=== PATIENT | female | born 1950 | race Caucasian/White ===

== ENCOUNTER 2022-04-14 08:40 | Day surgery (SDC) | payer MEDICARE, BC, SELFPAY ==
[2022-04-14] VITALS (24 sets, daily range): BP systolic 94–139; BP diastolic 47–91; PULSE 81–113; RESP 12–18; TEMP 36–36.8; O2SAT 88–100; BMI 30.8
[2022-04-14] MEDS: SODIUM CHLORIDE 0.9 % (FLUSH) 10 ML SYRINGE IVF (09:40)
[2022-04-14] MEDS: LACTATED RINGERS 1000 ML 1,000 ML 100 ML IV ×2 (09:40→13:25)
[2022-04-14] MEDS: ACETAMINOPHEN 500 MG TABLET 1000 MG PO ×2 (09:45→19:43)
--- NOTE | 2022-04-14 10:02 | CRLHL7_ITS ---
For Patients: As a result of the Cures Act, medical imaging exams and procedure reports are released immediately into your electronic medical record. You may view this report before your referring provider. If you have questions, please contact your health care provider. Indication: Hip replacement surgery Technique: AP hip fluoroscopic images. Fluoroscopy time 59.4 seconds. Findings/Impression: Hardware from a right total hip arthroplasty is in satisfactory position. Dictated by Jacob Pagan MD @ 04/15/2022 8:21:30 AM (Electronically Signed)
[2022-04-14] MEDS: MIDAZOLAM HCL 1 MG/ML inj IVP (10:47)
[2022-04-14] MEDS: fentaNYL 100 MCG/2 ML inj IVP (10:47)
--- NOTE | 2022-04-14 10:55 | SUR.PREOP ---
TIME?OUT:?1045 PT/RN/MDA?VERIFICATION?OF?SURGICAL?SITE,?PROCEDURE,?AND?CONSENT OBTAINED?PRIOR?TO?INVASIVE?PROCEDURE.
--- NOTE | 2022-04-14 11:40 | W.PM.NB ---
Nerve Block Nerve Block Date Seen: 04/14/22 Type of block requested by surgeon for post-operative analgesia: MIREYA/LFCN Side: right Time out performed: Yes Verification of patient name: Yes Verification of date of : Yes Site marking: site marked Name of person performing procedure: Geronimo Continuous monitoring Was continuous monitoring of O2 sat, B/P, monitoring and evaluation advisor, recorded every 15 minutes?: Yes Procedure Checklist: sterile prep, needles and gloves Ultrasound guided. Images saved: Yes Medications given in 5ml increments after negative aspiration: Ropivicaine %: 0.5 mL: 30 Needle gauge: 20 Decadron (mg): 10 Precedex (mcg): 25 Patient tolerated procedure well: Yes Additional comments: Needle noted below psoas tendon needle noted adjacent to LFCN Block Charges Block Charge (with Pro Fee): Other Periph Nerve Block Use of Ultrasound Machine for Block: Yes- US Guidance/pain block
--- NOTE | 2022-04-14 12:46 | CRLHL7_ITS ---
For Patients: As a result of the Cures Act, medical imaging exams and procedure reports are released immediately into your electronic medical record. You may view this report before your referring provider. If you have questions, please contact your health care provider. Indication: POST OP BUSTER Technique: AP pelvis and lateral view right hip. Findings/Impression: Hardware from a right total hip arthroplasty is in satisfactory position. Bone alignment is normal. No sign of acute fracture. Postop changes are within normal limits. Dictated by Jacob Pagan MD @ 04/15/2022 8:22:35 AM (Electronically Signed)
--- NOTE | 2022-04-14 12:48 | PM.ORPRC ---
Procedure Note Date of procedure: 04/14/22 Procedure: SURGEON: Travis Nesbitt MD WAYBILL CLERK: Bisi Falcon PA-C, ZEHRA Sánchez PREOPERATIVE DIAGNOSIS: Right hip osteoarthritis POSTOPERATIVE DIAGNOSIS: Right hip osteoarthritis NAME OF OPERATION: Right total hip arthroplasty IMPLANTS: 1. [employer] [place] # 50 sector ingrowth cup 2. 32 x 50 neutral polyethylene 3. Actis #4 standard collared ingrowth stem 4. 32 +1 ceramic femoral head ANESTHESIA: General ESTIMATED BLOOD LOSS: 100 cc COMPLICATIONS: None SPECIMENS: None DRAINS: None PREOPERATIVE ANTIBIOTICS: Ancef 2 grams INDICATIONS: The patient is a 71-year-old with a longstanding history of severe, unrelenting right hip pain secondary to end-stage right hip osteoarthritis. Despite appropriate nonoperative management, including activity modification, use of an assist device, anti-inflammatories, [id number] pain medication, physical therapy and injections, they continue to have pain and disability. Operative intervention was offered. The risks, benefits and expected outcomes were discussed in detail. These included but were not limited to: Infection, bleeding, injury to blood vessel or nerve, venous thromboembolism. All questions were answered to their satisfaction. Use of an recruitment and outreach assistant was necessary throughout the case for patient positioning and safety, soft tissue retraction and closure. PROCEDURE: The patient was placed supine on the [place] table. General anesthesia was administered. The recruitment and outreach assistant made sure the patient was properly positioned. The right hip was prepped and draped in the usual sterile fashion. The image intensifier was brought in for a perfect AP pelvis and a perfect double tear drop AP view of each hip which were used for intraoperative templating with our fluoroscopic guide. An oblique incision was made 3 cm distal and 3 cm lateral to the anterior superior iliac spine. The recruitment and outreach assistant retracted the soft tissues to protect them. Subcutaneous dissection was taken with electrocautery to the superficial fascia. The fascia was divided in line with the incision. Blunt dissection was carried medially to the tensor fascia madeline and sartorius interval. Deep dissection was carried with electrocautery. The circumflex vessels were cauterized and divided. The capsule was exposed and then divided in a T-fashion, tagged with #1 Ethibond sutures. Retractors were placed in the joint, held by the recruitment and outreach assistant. The corkscrew was placed in the femoral head. The neck cut was made in the subcapital region. We made a second neck cut more distal. The napkin ring of bone was removed. The femoral head was removed intact. Acetabular retractors were placed, held by the recruitment and outreach assistant. The labrum was sharply debrided. The capsule was released. The 43 mm reamer was used to the true medial wall. We then enlarged in 2 mm increments using the image intensifier for our reamer placement. We impacted the cup which had excellent purchase. We placed the hole eliminator and the polyethylene. Attention was then turned to the proximal femur. The limb was placed in 140 degrees of external rotation, maximum extension and adduction. A significant amount of time was spent releasing the capsule to allow us to deliver the femur into the wound and complete the femoral side safely. Retractors were held by the recruitment and outreach assistant throughout the femoral preparation. The box office clerk and canal finder were used. Broaches were used to a stable size. The calcar reamer was used. Trial components were placed. The hip was reduced and was found to be stable with appropriate soft tissue tension. Length and offset had been nicely restored using the image intensifier and our fluoroscopic guide. Trial components were removed. The stem was impacted. We placed the femoral head. Again, the hip was reduced and was found to be stable with appropriate soft tissue tension. Length and offset had been nicely restored. The recruitment and outreach assistant did a three minute dilute Betadine solution soak. The recruitment and outreach assistant irrigated the wound with 3 liters of normal saline via pulse lavage. The recruitment and outreach assistant repaired the anterior capsule with a #1 Vicryl and our previously placed Ethibond sutures. The recruitment and outreach assistant closed the fascia over the tensor fascia madeline with a #1 PDO Stratafix, subcutaneous tissues with 2-0 Vicryl, skin with a running 3-0 Stratafix and glue. A dry dressing was applied by the recruitment and outreach assistant. Sponge and needle counts were correct x 2. The patient tolerated the procedure well; there were no apparent complications. They were awakened and extubated in the operating room, sent to the Post-Anesthesia Care Unit in satisfactory condition. PLAN: 1. The patient will be mobilized with physical therapy, weight-bearing as tolerates 2. Xarelto x 5 days then aspirin x 30 days will be used for DVT prophylaxis 3. The patient will be discharged once medically appropriate
--- NOTE | 2022-04-14 13:33 | W.ANESCHARGE ---
Anesthesia Charges Start Date/Time Anesthesia Start Date: 04/14/22 Anesthesia Start Time: 11:12 Stop Date/Time Anesthesia Stop Date: 04/14/22 Anesthesia Stop Time: 13:31 Summary Emergency: No
[2022-04-14] MEDS: fentaNYL 100 MCG/2 ML inj 50 MCG IVP ×2 (13:42→13:58)
--- NOTE | 2022-04-14 13:50 | W.ANESCHARGE ---
Anesthesia Charges Start Date/Time Anesthesia Start Date: 04/14/22 Anesthesia Start Time: 11:12 Stop Date/Time Anesthesia Stop Date: 04/14/22 Anesthesia Stop Time: 13:31 Summary Emergency: No Extremes of Age: Over 70-CPT [id number]
[2022-04-14] MEDS: HYDROmorphone 0.5 mg/0.5 ml inj IVP (14:41)
--- NOTE | 2022-04-14 17:24 | P.IMCN_ITS ---
Date of Consult Patient: Julio C Patient Consult date: 04/14/22 Requesting Physician: Orthopedics Primary Care Provider: Hien Nieves DO Consult Narrative Reason for consult: Assist with postoperative management of medical problems Narrative: Sheri Brownlee is a 71 year old woman with right coxarthrosis that has not been amenable to nonsurgical efforts, presents today for elective right total hip arthroplasty. This is undertaken successfully. No obvious complications. Was previously scheduled to have this procedure 1 month ago. Unfortunately she developed mild symptoms of COVID 19 and tested positive for this and thus the surgery was postponed until now. Review of Systems Status of ROS: Reports: 10 or more systems reviewed and unremarkable except as noted in History and below Narrative: Denies chest heaviness, pressure, tightness, or pain. Denies dyspnea at rest, paroxysmal nocturnal dyspnea, orthopnea, or cough. Denies syncope or near-syncope. Denies palpitations or fluttering. Denies nausea or vomiting. Bowel and bladder habits are satisfactory. No focal motor neurologic deficits. Aside from the COVID-19 1 month ago she has had no other acute illnesses. Denies dysuria, urgency, frequency, hematuria. Denies diarrhea or constipation. No blood loss. No trauma or injury. No recent travel. [facility] Medical History (Updated 04/14/22 @ 17:32 by Reyes Gaines MD) Cervical vertebral fusion Chronic pain syndrome COVID-19 determined by clinical diagnostic criteria Diverticulosis Gastroesophageal reflux disease Hyperlipidemia Hypertension Lumbar stenosis with neurogenic claudication Major depression, recurrent, chronic Osteoarthritis Retinal detachment, right Rheumatoid arthritis Spondylolisthesis of lumbar region Unspecified sleep apnea Surgical History (Updated 04/14/22 @ 17:32 by Reyes Gaines MD) History of abdominal hysterectomy History of back surgery History of lumbar surgery (10/20/21) History of right knee joint replacement S/P cervical spinal fusion Status post right hip replacement Family History Brother Stroke Father Alzheimers disease High blood pressure High cholesterol Heart disease Sister FH: coronary artery bypass surgery Mother Heart disease High cholesterol High blood pressure Macular degeneration Stroke Social History Highest level of school completed/degree received: high school graduate Smoking Status: Never smoker Do you use any of these nicotine containing products: None How often do you have a drink containing alcohol: never AUDIT-C Alcohol total score: 0 Non-prescribed substance use: denies use Caffeine: Yes (Diet pop, 16 oz/day) service: No Meds Home Medications and Allergies Home Medications Medication Instructions Recorded Confirmed Type amitriptyline 10 mg tablet 30 mg PO HS 01/10/22 04/14/22 History ascorbic acid (vitamin C) 250 mg 1 g PO Q6H 01/10/22 04/14/22 History tablet cyclobenzaprine 10 mg tablet 10 mg PO TID 01/10/22 04/14/22 History duloxetine 60 mg capsule,delayed 60 mg PO DAILY 01/10/22 04/14/22 History release estradiol 1 mg tablet 2 mg PO DAILY 01/10/22 04/14/22 History fluoxetine 10 mg capsule 10 mg PO DAILY 01/10/22 04/14/22 History folic acid 1 mg tablet 1 mg PO DAILY 01/10/22 04/14/22 History furosemide 40 mg tablet 40 mg PO DAILY 01/10/22 04/14/22 History gabapentin 300 mg capsule 300 mg PO 01/10/22 01/10/22 History lisinopril 20 mg tablet 20 mg PO DAILY 01/10/22 04/14/22 History methotrexate sodium 2.5 mg tablet 12.5 mg PO .Every 7 Days 01/10/22 04/14/22 History simvastatin 80 mg tablet 40 mg PO .Bedtime 01/10/22 04/14/22 History triamterene 37.5 1 tab PO DAILY 01/10/22 04/14/22 History mg-hydrochlorothiazide 25 mg tablet vit A 300 mcg-C 200 mg-E 27 1 tab PO DAILY 01/10/22 04/14/22 History mg-lutein 2 mg and minerals tablet (Ocuvite with Lutein) zolpidem 5 mg tablet 5 mg PO .Bedtime 01/10/22 04/14/22 History cholecalciferol (vitamin D3) 125 125 mcg PO DAILY 04/13/22 04/14/22 History mcg (5,000 unit) capsule ferrous sulfate 27 mg iron tablet 27 mg PO DAILY 04/13/22 04/14/22 History fexofenadine 180 mg tablet 180 mg PO DAILY 04/13/22 04/14/22 History methocarbamol 750 mg tablet 750 mg PO TID 04/13/22 04/14/22 History oxycodone 5 mg tablet 5 mg PO Q4H PRN 04/13/22 04/14/22 History pantoprazole 40 mg tablet,delayed 40 mg PO DAILY 04/13/22 04/14/22 History release potassium chloride 10 mEq 10 meq PO BID 04/13/22 04/14/22 History capsule,extended release pregabalin 50 mg capsule (Lyrica) 50 mg PO TID 04/13/22 04/14/22 History sennosides 8.6 mg tablet (Senokot) 8.6 mg PO BID 04/13/22 04/14/22 History prednisone 5 mg tablet 2.5 mg PO DAILY 04/14/22 04/14/22 History Allergies Allergy/AdvReac Type Severity Reaction Status Date / Time sulfasalazine Allergy Unknown Rash Verified 04/14/22 09:04 Penicillins Allergy THROAT Verified 04/14/22 09:04 SWELLING/CLOSING infliximab AdvReac Severe Throat Verified 04/14/22 09:04 swelling with a high dose oxycodone AdvReac Intermediate Itching Verified 04/14/22 09:04 cephalexin AdvReac Mild Itching Verified 04/14/22 09:04 sodium phenolate Allergy Unknown Uncoded 01/10/22 09:55 Exam Narrative: Exam Narrative: No acute distress. Appears comfortable. Alert, oriented to self, place, time, situation. Friendly, cooperative, articulate. Mood and affect are congruent. Vision and hearing are grossly normal. Few missing teeth otherwise dentition in fair repair. Supple neck. Midline trachea normal thyroid. No JVD, hepatojugular reflux, or carotid bruits. No lymphadenopathy. Lungs are clear to auscultation. No wheezing, rhonchi, or rales. No CVA tenderness. Heart tones with regular rhythm, normal S1-S2. Grade 2/6 systolic murmur right upper sternal border. PMI is not laterally displaced. Abdomen with active bowel sounds, soft, nontender. Extremities without edema. No focal motor neurologic deficits. Const: Vital Signs, click to edit/add: Vital Signs - 24 hr 04/14/22 09:10 04/14/22 10:47 04/14/22 10:50 Temperature 97.5 F L Pulse Rate 98 84 84 Pulse Rate [Left P ulse Oximeter] Respiratory Rate 16 16 16 Blood Pressure 124/69 107/78 109/59 L Blood Pressure [Le ft Arm] Pulse Oximetry 96 100 100 Oxygen Delivery Me thod Room Air Nasal Cannula Nasal Cannula Oxygen Flow Rate 2 2 04/14/22 10:55 04/14/22 11:00 04/14/22 13:27 Temperature 98.0 F Pulse Rate 82 81 89 Pulse Rate [Left P ulse Oximeter] Respiratory Rate 16 16 14 Blood Pressure 116/58 L 100/51 L 94/67 Blood Pressure [Le ft Arm] Pulse Oximetry 100 100 88 Oxygen Delivery Me thod Nasal Cannula Nasal Cannula Room Air Oxygen Flow Rate 2 2 04/14/22 13:55 04/14/22 14:06 04/14/22 14:10 Temperature Pulse Rate 93 91 92 Pulse Rate [Left P ulse Oximeter] Respiratory Rate 16 12 16 Blood Pressure 120/56 L 129/68 118/62 Blood Pressure [Le ft Arm] Pulse Oximetry 100 91 94 Oxygen Delivery Me thod Nasal Cannula Nasal Cannula Nasal Cannula Oxygen Flow Rate 1 1 1 04/14/22 13:30 04/14/22 13:35 04/14/22 13:40 Temperature Pulse Rate 87 84 84 Pulse Rate [Left P ulse Oximeter] Respiratory Rate 14 13 13 Blood Pressure 112/71 112/64 112/64 Blood Pressure [Le ft Arm] Pulse Oximetry 91 100 100 Oxygen Delivery Me thod Nasal Cannula Nasal Cannula Nasal Cannula Oxygen Flow Rate 3 3 3 04/14/22 13:45 04/14/22 13:50 04/14/22 14:00 Temperature Pulse Rate 89 90 96 Pulse Rate [Left P ulse Oximeter] Respiratory Rate 16 18 16 Blood Pressure 139/84 138/75 120/63 Blood Pressure [Le ft Arm] Pulse Oximetry 100 100 94 Oxygen Delivery Me thod Nasal Cannula Nasal Cannula Nasal Cannula Oxygen Flow Rate 3 1 1 04/14/22 14:15 04/14/22 14:20 04/14/22 14:45 Temperature 97.2 F L 97.0 F L 97.0 F L Pulse Rate 94 96 Pulse Rate [Left P ulse Oximeter] 94 Respiratory Rate 16 18 18 Blood Pressure 116/73 Blood Pressure [Le ft Arm] 114/68 111/91 H Pulse Oximetry 94 96 Oxygen Delivery Me thod Room Air Room Air Room Air Oxygen Flow Rate 04/14/22 15:00 Temperature 97.0 F L Pulse Rate Pulse Rate [Left P ulse Oximeter] 90 Respiratory Rate 18 Blood Pressure Blood Pressure [Le ft Arm] 125/60 Pulse Oximetry 97 Oxygen Delivery Me thod Room Air Oxygen Flow Rate 1 Documenting provider has reviewed patient's vital signs: yes Assessment and Plan Assessment and plan (1) Osteoarthritis of right hip: Status: Acute (2) Status post right hip replacement: Problem comment: 04/14/2022 Status: Acute (3) Hypertension: Status: Acute (4) Rheumatoid arthritis: Problem comment: Negative rheumatoid factor Status: Acute Plan 1. Reviewed impression with patient and . Answered their questions. 2. Continue with daily prednisone 2.5 mg. 3. Hold antihypertensive medications. 4. Hold methotrexate. 5. Agree with perioperative antibiotic prophylaxis. 6. Agree with postoperative venous thromboembolism prophylaxis. 7. Will be available to support the patient while she is in hospital with Orthopedic surgery as primary. 8. Patient agreeable with above stated plans and recommendations.
[2022-04-14] MEDS: POTASSIUM CHLORIDE 10 MEQ CAPSULE ER PO (19:42)
[2022-04-14] MEDS: CEFAZOLIN 2 GM in 0.9 % SODIUM CHLORIDE Mini-bag 100 ML IVPB (19:44)
--- NOTE | 2022-04-14 20:16 | PC.NURSE ---
Pt arrives to floor chatting, asking for phone from , and complaining of numb lower leg and pain in right surgical hip= 3 of 10. Pt's expectations for pain post-op is 0 of 10. Dilaudid per MAR given and education about pain scale given. Pt tolerated regular diet, no N/V. 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 Informed pt of plan for evening and use of commode or bathroom. Pt understands and will communicate when needing to use BR. Pt will return home with at time of DC.
[2022-04-14] MEDS: ZOLPIDEM 5 MG TABLET PO (21:04)
[2022-04-14] MEDS: CYCLOBENZAPRINE HCL 10 MG TABLET PO (21:04)
[2022-04-14] MEDS: CELECOXIB 200 MG CAPSULE PO (21:05)
[2022-04-14] MEDS: SENNOSIDES 1 TAB TABLET 2 TAB PO (21:05)
[2022-04-14] MEDS: SIMVASTATIN 40 MG TABLET PO (21:05)
[2022-04-14] MEDS: PREGABALIN 25 MG CAPSULE 50 MG PO (21:06)
[2022-04-14] MEDS: AMITRIPTYLINE HCL 10 MG TABLET 30 MG PO (21:15)
[2022-04-15] MEDS: CEFAZOLIN 2 GM in 0.9 % SODIUM CHLORIDE Mini-bag 100 ML IVPB ×2 (02:01→09:50)
[2022-04-15] MEDS: ACETAMINOPHEN 500 MG TABLET 1000 MG PO ×2 (02:01→06:41)
[2022-04-15 03:00] VITALS: BP 135/66; PULSE 103; RESP 18; TEMP 36.3; O2SAT 96
--- NOTE | 2022-04-15 05:55 | PC.NURSE ---
[id number] shift note: Pt. alert and oriented x4, cooperative and pleasant. Pt denies pain/N/V. Pt. up to bathroom and voided for the first. Pt. tolerated activity well. Pt's dressing to right hip C/D/I. Bilateral Teds and plexi pulses on. Pt. IV in left arm patent and intact. Saline locked after adequate intake and output. Active ice to site. Pt. VSS. Plan for Pt.: will return home w/ at time of DC.
[2022-04-15] MEDS: OMEPRAZOLE 20 MG CAPSULE DR 40 MG PO (06:41)
[2022-04-15 07:00] VITALS: BP 145/69; PULSE 98; RESP 18; TEMP 36.6; O2SAT 95
[2022-04-15 07:20] LABS: Basophils Percent Auto 0.1 % (0.0-3.0); Hematocrit 31.2 % (33.0-51.0); Hemoglobin* 9.8 gm/dL (12.0-16.0); Immature Granulocytes Abs Auto 0.04 K/uL (0.00-0.30); Lymphocytes Percent Auto 12.4 % (20-44); Mean Corpuscular HGB Conc 31 gm/dL (32-36); Mean Corpuscular Hemoglobin 30 pg (26-34); Mean Corpuscular Volume 96 fL (80-100); Monocytes Percent Auto 9.1 % (0.0-11.0); Neutrophils Percent Auto 78.1 % (42.0-72.0); Platelet Count* 276 K/uL (140-440); RDW Coefficient of Variation % 12.8 % (11.5-15.5); Red Blood Count 3.26 m/uL (4.00-5.20); White Blood Count* 14.17 K/uL (4.50-11.00)
[2022-04-15 07:29] LABS: Slide Review Reflex No
[2022-04-15 07:32] LABS: Potassium* 4.5 mmol/L (3.6-5.1); Sodium* 132 mmol/L (135-149)
[2022-04-15 07:35] LABS: Blood Urea Nitrogen* 21 mg/dL (7-30); Creatinine* 1.1 mg/dL (0.5-1.5); Est. Creatinine Clearance* 40.51; Estimated Glomerular Filt Rate 54 ml/min
[2022-04-15] MEDS: POTASSIUM CHLORIDE 10 MEQ CAPSULE ER PO (08:50)
[2022-04-15] MEDS: DULOXETINE 30 MG CAPSULE DR 60 MG PO (08:50)
[2022-04-15] MEDS: predniSONE 5 MG TABLET 2.5 MG PO (08:51)
[2022-04-15] MEDS: FOLIC ACID 1 MG TABLET PO (08:52)
[2022-04-15] MEDS: FEXOFENADINE 180 MG TABLET PO (08:52)
[2022-04-15] MEDS: CYCLOBENZAPRINE HCL 10 MG TABLET PO (08:52)
[2022-04-15] MEDS: CELECOXIB 200 MG CAPSULE PO (08:52)
[2022-04-15] MEDS: RIVAROXABAN 10 MG TABLET PO (08:53)
[2022-04-15] MEDS: estradioL 1 MG TABLET 2 MG PO (08:53)
--- NOTE | 2022-04-15 08:53 | PM.ORPN ---
Subjective Subjective Time Seen by Provider: 07:20 Date Seen: 04/15/22 Principal diagnosis: Status post right hip replacement Interval history: Sheri is comfortable this morning. She has been able to get out of bed on her own and ambulating to the bathroom with relative ease she states. Ortho Exam Narrative Exam Narrative: Alert and oriented x3. Patient is in no acute distress. Converses without labored breathing. Hearing is grossly intact. Ambulates with a walker. Examination of the right hip shows mild amount of ecchymosis. No significant soft tissue edema. No tenderness palpation about the thigh. Dressing is intact. CMS is intact right lower extremity. Bilateral calves are soft and nontender. Const Vital Signs, click to edit/add: Vital Signs - 24 hr 04/14/22 09:10 04/14/22 10:47 04/14/22 10:50 Temperature 97.5 F L Pulse Rate 98 84 84 Pulse Rate [Left Pulse Oximeter] Respiratory Rate 16 16 16 Blood Pressure 124/69 107/78 109/59 L Blood Pressure [Left Arm] Pulse Oximetry 96 100 100 Oxygen Delivery Method Room Air Nasal Cannula Nasal Cannula Oxygen Flow Rate 2 2 04/14/22 10:55 04/14/22 11:00 04/14/22 13:27 Temperature 98.0 F Pulse Rate 82 81 89 Pulse Rate [Left Pulse Oximeter] Respiratory Rate 16 16 14 Blood Pressure 116/58 L 100/51 L 94/67 Blood Pressure [Left Arm] Pulse Oximetry 100 100 88 Oxygen Delivery Method Nasal Cannula Nasal Cannula Room Air Oxygen Flow Rate 2 2 04/14/22 13:55 04/14/22 14:06 04/14/22 14:10 Temperature Pulse Rate 93 91 92 Pulse Rate [Left Pulse Oximeter] Respiratory Rate 16 12 16 Blood Pressure 120/56 L 129/68 118/62 Blood Pressure [Left Arm] Pulse Oximetry 100 91 94 Oxygen Delivery Method Nasal Cannula Nasal Cannula Nasal Cannula Oxygen Flow Rate 1 1 1 04/14/22 13:30 04/14/22 13:35 04/14/22 13:40 Temperature Pulse Rate 87 84 84 Pulse Rate [Left Pulse Oximeter] Respiratory Rate 14 13 13 Blood Pressure 112/71 112/64 112/64 Blood Pressure [Left Arm] Pulse Oximetry 91 100 100 Oxygen Delivery Method Nasal Cannula Nasal Cannula Nasal Cannula Oxygen Flow Rate 3 3 3 04/14/22 13:45 04/14/22 13:50 04/14/22 14:00 Temperature Pulse Rate 89 90 96 Pulse Rate [Left Pulse Oximeter] Respiratory Rate 16 18 16 Blood Pressure 139/84 138/75 120/63 Blood Pressure [Left Arm] Pulse Oximetry 100 100 94 Oxygen Delivery Method Nasal Cannula Nasal Cannula Nasal Cannula Oxygen Flow Rate 3 1 1 04/14/22 14:15 04/14/22 14:20 04/14/22 14:45 Temperature 97.2 F L 97.0 F L 97.0 F L Pulse Rate 94 96 Pulse Rate [Left Pulse Oximeter] 94 Respiratory Rate 16 18 18 Blood Pressure 116/73 Blood Pressure [Left Arm] 114/68 111/91 H Pulse Oximetry 94 96 Oxygen Delivery Method Room Air Room Air Room Air Oxygen Flow Rate 04/14/22 15:00 04/14/22 15:00 04/14/22 15:15 Temperature 97.0 F L Pulse Rate Pulse Rate [Left Pulse Oximeter] 90 98 100 Respiratory Rate 18 18 18 Blood Pressure Blood Pressure [Left Arm] 125/60 120/48 L 97/47 L Pulse Oximetry 97 96 97 Oxygen Delivery Method Room Air Room Air Room Air Oxygen Flow Rate 1 04/14/22 16:30 04/14/22 17:00 04/14/22 17:30 Temperature 96.8 F L 97.0 F L 97.8 F Pulse Rate Pulse Rate [Left Pulse Oximeter] 98 110 H 105 H Respiratory Rate 18 18 18 Blood Pressure Blood Pressure [Left Arm] 104/73 108/58 L 125/51 L Pulse Oximetry 96 97 98 Oxygen Delivery Method Room Air Room Air Room Air Oxygen Flow Rate 04/14/22 22:18 04/14/22 22:18 04/15/22 03:00 Temperature 98.2 F 97.3 F L Pulse Rate Pulse Rate [Left Pulse Oximeter] 109 H 113 H 103 H Respiratory Rate 18 18 Blood Pressure Blood Pressure [Left Arm] 121/61 135/66 Pulse Oximetry 98 96 Oxygen Delivery Method Room Air Room Air Oxygen Flow Rate Assessment and Plan Assessment and plan (1) Osteoarthritis of right hip: Status: Acute (2) Status post right hip replacement: Problem details: 04/14/2022 Status: Acute Assessment and Plan: Plan for discharge is today to home if they meet discharge criteria. She is anticipated to do very well postop. DVT prophylaxis includes Xarelto 10 mg daily for total of 5 days, then aspirin 81 mg twice daily for 30 days, Shahbaz stockings x1 month may remove for 1 hr per day, frequent ambulation Remove dressing 1 week. Observe wound and phone Orthopedics with any questions or concerns Use Ice on operative hip unrestricted. Return to clinic in 1 week with PA for a wound check Return to clinic in [address] Nesbitt Minimize narcotic use. She is okay with taking oxycodone, even though she has an allergy listed with mild itching she states. Wean off and discontinue soon as possible. Activities as tolerated. No strenuous activity. Attend outpt PT, she is concerned about her gait. She will work on this with physical therapy. (3) Hypertension: Status: Acute (4) Rheumatoid arthritis: Problem details: Negative rheumatoid factor Status: Acute
[2022-04-15] MEDS: FLUOXETINE HCL 10 MG CAPSULE PO (08:54)
[2022-04-15] MEDS: PREGABALIN 25 MG CAPSULE 50 MG PO (09:27)
[2022-04-15] MEDS: OXYCODONE 5 MG TABLET PO (09:33)
--- NOTE | 2022-04-15 12:01 | PC.NURSE ---
Discharge: Patient pleasant, cooperative, and with great humor. Patient vitally stable, lungs clear, BS WNL, IV removed, catheter intact. Patient walks independent in room with walker. Patient denies pain but was given 5 mg of oxy once for therapy. Patient tolerating regular diet and urinating. Right hip dressing C/D/I. Patient signed belongings sheet and discharge form. Patient had no further questions regarding discharge information. Patient left the floor at 1155 by wheelchair with belongings.
== END 2022-04-15 11:55 | disposition home or self-care (01) ==
LOC: OR 08:41 → MEDSURG 08:44
PROVIDERS: PCP Family Medicine; Visit Provider Orthopaedic Surgery
PROC: (CPT 27130; principal; 2022-04-14 10:00)
DX: M16.11 Unilateral primary osteoarthritis, right hip (principal); I10 Essential (primary) hypertension; K21.9 Gastro-esophageal reflux disease without esophagitis; G89.4 Chronic pain syndrome; E78.5 Hyperlipidemia, unspecified; M48.062 Spinal stenosis, lumbar region with neurogenic claudication; F33.9 Major depressive disorder, recurrent, unspecified; M06.00 Rheumatoid arthritis without rheumatoid factor, unspecified site; M43.16 Spondylolisthesis, lumbar region
CPT/HCPCS: 27130; 01214; 36415; 64450; 73501; 76942; 82565; 84132; 84295; 84520; 85025; 97110; 97116; 97161; 97165; 97535; 99100; A9270; C1776; J0330; J0690; J1100; J1170; J2250; J2405; J2704; J2710; J2795; J3010; J7120; J7512

== ENCOUNTER 2022-10-14 11:29 | Emergency (ER) | payer MEDICARE, BC, SELFPAY ==
[2022-10-14 11:33] VITALS: BP 164/77; PULSE 84; RESP 18; TEMP 36.6; O2SAT 96; BMI 32.6
--- NOTE | 2022-10-14 11:50 | CRLHL7_ITS ---
For Patients: As a result of the Century Cures Act, medical imaging exams and procedure reports are released immediately into your electronic medical record. You may view this report before your referring provider. If you have questions, please contact your health care provider. INDICATION: Cough. TECHNIQUE: Chest 2 views. COMPARISON: None. FINDINGS: Cardiovascular and mediastinum: Heart size and vasculature are normal in caliber and appearance. Lungs and pleural spaces: Lungs are clear. No sign of infiltrate or mass. No sign of pleural effusion. No pneumothorax. Bones and soft tissues: No significant findings. IMPRESSION: No acute or significant findings. Dictated by Jose Miguel Neville MD @ 10/14/2022 12:42:58 PM (Electronically Signed)
--- NOTE | 2022-10-14 11:50 | ED.GENADULT ---
HPI - General Adult General Chief complaint: Cough Stated complaint: Cough, chest pain Time Seen by Provider: 10/14/22 11:38 History of Present Illness HPI narrative: This 71-year-old female comes in reporting persistent cough over the past week. She states that the cough is especially troubling at night where she has difficulty sleeping. She states that she has been taking [id number] cough medicines without much relief. She now has pain in her chest and back when coughing. She does not report any fevers. She did test herself at home for COVID a couple times and both results were negative. She arrives here with normal vital signs per Related Data Home Medications Medication Instructions Recorded Confirmed amitriptyline 10 mg tablet 30 mg PO HS 01/10/22 04/20/22 ascorbic acid (vitamin C) 250 mg 1 g PO Q6H 01/10/22 04/20/22 tablet cyclobenzaprine 10 mg tablet 10 mg PO TID 01/10/22 04/20/22 duloxetine 60 mg capsule,delayed 60 mg PO DAILY 01/10/22 04/20/22 release estradiol 1 mg tablet 2 mg PO DAILY 01/10/22 04/20/22 fluoxetine 10 mg capsule 10 mg PO DAILY 01/10/22 04/20/22 folic acid 1 mg tablet 1 mg PO DAILY 01/10/22 04/20/22 furosemide 40 mg tablet 40 mg PO DAILY 01/10/22 04/20/22 lisinopril 20 mg tablet 20 mg PO DAILY 01/10/22 04/20/22 methotrexate sodium 2.5 mg tablet 12.5 mg PO .Every 7 Days 01/10/22 04/20/22 simvastatin 80 mg tablet 40 mg PO .Bedtime 01/10/22 04/20/22 triamterene 37.5 1 tab PO DAILY 01/10/22 04/20/22 mg-hydrochlorothiazide 25 mg tablet vit A 300 mcg-C 200 mg-E 27 1 tab PO DAILY 01/10/22 04/20/22 mg-lutein 2 mg and minerals tablet (Ocuvite with Lutein) zolpidem 5 mg tablet 5 mg PO .Bedtime 01/10/22 04/20/22 cholecalciferol (vitamin D3) 125 125 mcg PO DAILY 04/13/22 04/20/22 mcg (5,000 unit) capsule ferrous sulfate 27 mg iron tablet 27 mg PO DAILY 04/13/22 04/20/22 fexofenadine 180 mg tablet 180 mg PO DAILY 04/13/22 04/20/22 methocarbamol 750 mg tablet 750 mg PO TID 04/13/22 04/20/22 pantoprazole 40 mg tablet,delayed 40 mg PO DAILY 04/13/22 04/20/22 release potassium chloride 10 mEq 10 meq PO BID 04/13/22 04/20/22 capsule,extended release pregabalin 50 mg capsule (Lyrica) 50 mg PO TID 04/13/22 04/20/22 sennosides 8.6 mg tablet (Senokot) 8.6 mg PO BID 04/13/22 04/20/22 prednisone 5 mg tablet 2.5 mg PO DAILY 04/14/22 04/20/22 Previous Rx's Medication Instructions Recorded acetaminophen 500 mg tablet 500 - 1,000 mg PO Q6H PRN pain 04/15/22 #100 tabs acetaminophen 300 mg-codeine 30 mg 1 tab PO Q6H PRN pain #20 tabs 10/14/22 tablet Allergies Allergy/AdvReac Type Severity Reaction Status Date / Time sulfasalazine Allergy Unknown Rash Verified 05/30/22 10:51 Penicillins Allergy THROAT Verified 05/30/22 10:51 SWELLING/CLOSING infliximab AdvReac Severe Throat Verified 05/30/22 10:51 swelling with a high dose oxycodone AdvReac Intermediate Itching Verified 05/30/22 10:51 cephalexin AdvReac Mild Itching Verified 05/30/22 10:51 sodium phenolate Allergy Unknown Uncoded 05/30/22 10:51 Review of Systems Status of ROS: Reports: 10 or more systems reviewed and unremarkable except as noted in History and below Narrative: Constitutional: No fevers, no weight gain or loss. Eyes: No discharge. No vision changes. HENT: No congestion, no sore throat, no ear pain. Cardiovascular: No chest pain, no palpitations. Respiratory: No shortness of breath, no wheezes. Persistent cough with associated pain in her chest when coughing. Gastrointestinal: No abdominal pain, no vomiting, no diarrhea. Genitourinary: No dysuria, no hematuria. Musculoskeletal: Normal range of motion. Skin: No rashes, no pruritis. Neurological: No dizziness, weakness, sensory change, speech change. Endo/Heme/Allergies: No bruising or bleeding. No polydipsia. Pysch: no suicidality, no anxiety, no insomnia. All other systems reviewed and are negative. PFSH PFSH Medical History Cervical vertebral fusion Chronic pain syndrome COVID-19 determined by clinical diagnostic criteria Diverticulosis Gastroesophageal reflux disease Hyperlipidemia Hypertension Lumbar stenosis with neurogenic claudication Major depression, recurrent, chronic Osteoarthritis Retinal detachment, right Rheumatoid arthritis Spondylolisthesis of lumbar region Unspecified sleep apnea Surgical History History of abdominal hysterectomy History of back surgery History of lumbar surgery (10/20/21) History of right knee joint replacement (04/30/19) S/P cervical spinal fusion Status post right hip replacement (04/14/22) Family History Brother Stroke Father Alzheimers disease High blood pressure High cholesterol Heart disease Sister FH: coronary artery bypass surgery Mother Heart disease High cholesterol High blood pressure Macular degeneration Stroke Social History (Reviewed 04/20/22 @ 11:17 by Aaliyah García ~ [facility], [facility]) Highest level of school completed/degree received: high school graduate Smoking Status: Never smoker Do you use any of these nicotine containing products: None How often do you have a drink containing alcohol: never AUDIT-C Alcohol total score: 0 Non-prescribed substance use: denies use Caffeine: Yes (Diet pop, 16 oz/day) service: No Exam Narrative: Exam Narrative: Constitutional: Well-developed, well-nourished, no acute distress. HEENT: Normocephalic, atraumatic. Neck: Normal range of motion. Nontender. Supple. Heart: Regular. No murmurs. Normal rate. Intact distal pulses. Lungs: Clear to auscultation. No chest discomfort. No wheezes, rhonchi, or rales. Abdomen: Normal bowel sounds. Nontender. No rebound tenderness. Genitalia: Deferred. Back: No midline tenderness. Normal range of motion. Extremities: Normal range of motion. No injury. Skin: Intact. No rash. Warm. No erythema or pallor. Neurologic: No altered sensation. No weakness. Alert and oriented. Psychiatric: No suicidality. No anxiety or depression. No insomnia. Nursing notes and vitals signs are reviewed. Const: Vital Signs, click to edit/add: Vital Signs - 24 hr 10/14/22 11:33 Temperature 97.9 F Pulse Rate [Right Pulse Oximeter] 84 Respiratory Rate 18 Blood Pressure [Ri ght Upper Arm] 164/77 H Pulse Oximetry 96 Oxygen Delivery Me thod Room Air Course Vital Signs Vital signs: Initial Vital Signs Temperature 97.9 F 10/14/22 11:33 Temperature Source Temporal Artery Scan 10/14/22 11:33 Pulse Rate 84 10/14/22 11:33 Respiratory Rate 18 10/14/22 11:33 Blood Pressure 164/77 H 10/14/22 11:33 Blood Pressure Mean 106 10/14/22 11:33 Blood Pressure Position Sitting 10/14/22 11:33 Pulse Oximetry 96 10/14/22 11:33 Oxygen Delivery Method Room Air 10/14/22 11:33 Vital Signs Temperature 97.9 F 10/14/22 11:33 Pulse Rate 84 10/14/22 11:33 Respiratory Rate 18 10/14/22 11:33 Blood Pressure 164/77 H 10/14/22 11:33 Pulse Oximetry 96 10/14/22 11:33 Oxygen Delivery Method Room Air 10/14/22 11:33 Temperature 97.9 F 10/14/22 11:33 Pulse Rate 84 10/14/22 11:33 Respiratory Rate 18 10/14/22 11:33 Blood Pressure 164/77 H 10/14/22 11:33 Pulse Oximetry 96 10/14/22 11:33 Oxygen Delivery Method Room Air 10/14/22 11:33 Medical Decision Making MDM Narrative Medical decision making narrative: This 71-year-old female has had a persistent cough for the past week. She has been taking Vicks [id number]-[id number] without much relief. She arrives with normal vital signs. Her lung sounds are also clear. A chest x-ray is negative for acute cardiopulmonary disease. Most likely this is a viral infection. She did received prescription for Tylenol 3 tablets and encouraged the use [id number] cough medicine including dextromethorphan. Discharge Plan Discharge Clinical Impression: Acute upper respiratory infection Patient Disposition: Home, Self-Care Condition: Unchanged Additional Instructions: Take medication as needed and indicated. Use [id number] cough medicines preferably with dextromethorphan for additional relief. Follow up with MD or return if worsening. Prescriptions: New acetaminophen-codeine 300-30 mg tablet 1 tab PO Q6H PRN (Reason: pain) Qty: 20 0RF No Action Ocuvite with Lutein 300 mcg-200 mg-27 mg-2 mg tablet 1 tab PO DAILY duloxetine 60 mg capsule,delayed release(DR/EC) 60 mg PO DAILY zolpidem 5 mg tablet 5 mg PO .Bedtime folic acid 1 mg tablet 1 mg PO DAILY triamterene-hydrochlorothiazid 37.5-25 mg tablet 1 tab PO DAILY fluoxetine 10 mg capsule 10 mg PO DAILY amitriptyline 10 mg tablet 30 mg PO HS methotrexate sodium 2.5 mg tablet 12.5 mg PO .Every 7 Days Rx Instructions: TAKES ON MONDAYS estradiol 1 mg tablet 2 mg PO DAILY simvastatin 80 mg tablet 40 mg PO .Bedtime lisinopril 20 mg tablet 20 mg PO DAILY ascorbic acid (vitamin C) 250 mg tablet 1 g PO Q6H furosemide 40 mg tablet 40 mg PO DAILY cyclobenzaprine 10 mg tablet 10 mg PO TID cholecalciferol (vitamin D3) 125 mcg (5,000 unit) capsule 125 mcg PO DAILY ferrous sulfate 27 mg iron tablet 27 mg PO DAILY fexofenadine 180 mg tablet 180 mg PO DAILY methocarbamol 750 mg tablet 750 mg PO TID pantoprazole 40 mg tablet,delayed release (DR/EC) 40 mg PO DAILY Patient Comments: TAKE 1 TABLET BY MOUTH ONCE DAILY BEFORE A MEAL potassium chloride 10 mEq capsule, extended release 10 meq PO BID pregabalin [Lyrica] 50 mg capsule 50 mg PO TID sennosides [Senokot] 8.6 mg tablet 8.6 mg PO BID prednisone 5 mg tablet 2.5 mg PO DAILY Patient Comments: TAKE 2 TABLETS BY MOUTH IN THE MORNING acetaminophen 500 mg Tablet 500 - 1,000 mg PO Q6H MDD 4000 PRN (Reason: pain) Qty: 100 0RF Follow Up/Referrals: Hien Nieves DO [Primary Care Provider] - Stand Alone Forms: [facility] Info Instructions
== END 2022-10-14 13:12 | disposition home or self-care (01) ==
PROVIDERS: Emergency Provider Emergency Medicine Emergency Medical Services; PCP Family Medicine
DX: J06.9 Acute upper respiratory infection, unspecified (principal)
CPT/HCPCS: 71046; 99283; 99284

== ENCOUNTER 2023-02-06 17:09 | Outpatient (CLI) | payer MEDICARE, BC, SELFPAY ==
--- OUTSIDE RECORDS SUMMARY | 2023-02-06 17:12 | XMS_ITS | Continuity of Care Document ---
Author Name Unknown Organization [facility] Address [address] [place] [address] Phone Care Team Providers Care Catering Attendant Name Role Phone Marc Coulter MD Unavailable Unavailable Allergies, Adverse Reactions, Alerts Substance Reaction Status Criticality Sulfa (Sulfonamide Antibiotics) Swelling Active No Information Penicillins Anaphylaxis Active No Information Medications Medication Instructions Dosage Effective Dates (start - stop) Status Comments folic acid 1 mg tablet take 1 tablet by oral route every morning 1 MG - Active methotrexate sodium 2.5 mg tablet take 5 Tablet by oral route every week 12.5 MG - Active prednisone 2.5 mg tablet take 2 tablet by oral route every day 5 MG - Active Vitamin D2 1,250 mcg (50,000 unit) capsule take 1 capsule by oral route every week x 4 months - Active Orencia (with maltose) 250 mg intravenous solution infuse ( ) by intravenous route every ( ) weeks over - Active Celebrex 200 mg capsule Take 1 capsule 2 times daily - Active gabapentin 300 mg capsule take 1 capsule by oral route 2 times every day 300 MG - Active estradiol 2 mg tablet take 1 tablet by oral route every day 2 MG - Active Ambien 5 mg tablet take 1 Tablet by oral route every day 5 MG - Active Flexeril 10 mg Tab take 1 tablet (10MG) by oral route three times a day - Active Sandra 180 mg Tab take 1 tablet (180MG) by oral route every day - Active glucosamine-chondroit in 500 mg-400 mg Cap take one tab three times a day - Active multivitamin Cap take 1 capsule by oral route every day - Active vitamin A 10,000 unit Cap take 1 capsule ([id number]) by oral route every day 33049 UNITS - Active vitamin E 400 unit Cap take 1 tablet daily - Active amitriptyline 25 mg Tab take 1 tablet (25MG) by oral route every day at bedtime 25 MG - Active Cymbalta 20 mg Capsule, delayed release take 1 capsule (20MG) by oral route 3 times every day 20 MG - Active potassium chloride ER 10 mEq Tab take 2 tablet (20MEQ) by oral route every day with food 20 MEQ - Active Lasix 40 mg Tab take 1 tablet (40MG) by oral route every day 40 MG - Active triamterene-hydrochlo rothiazide 37.5 mg-25 mg Tab take 1 tablet by oral route every day 1.00 tablet - Active Vicodin 5 mg-500 mg Tab take 1 tablet by oral route every 4 hours as needed for pain - Active Zocor 80 mg Tab take 1 tablet daily - Acti ve Procedures Procedure Date Orencia Abatacept Chemo, Iv Infusion, 1 Hr Orencia Abatacept Chemo, Iv Infusion, 1 Hr Orencia Abatacept Chemo, Iv Infusion, 1 Hr Office/Outpatient Visit, Est Routine Venipuncture Rbc Sed Rate, Automated Assay Of Serum Albumin Assay Of Creatinine Transferase (Ast) (Sgot) Alanine Amino (Alt) (Sgpt) CReactive Protein Complete Cbc WAuto Diff Wbc Orencia Abatacept Chemo, Iv Infusion, 1 Hr Orencia Abatacept Chemo, Iv Infusion, 1 Hr Orencia Abatacept Chemo, Iv Infusion, 1 Hr Orencia Abatacept Chemo, Iv Infusion, 1 Hr Office/Outpatient Visit, Est Routine Venipuncture Assay Of Serum Albumin Assay Of Creatinine Transferase (Ast) (Sgot) Alanine Amino (Alt) (Sgpt) Complete Cbc, Automated Orencia Abatacept Ther/Proph/Diag Iv Inf, Init Office/Outpatient Visit, Est Routine Venipuncture Rbc Sed Rate, Nonautomated Assay Of Serum Albumin Assay Of Creatinine Transferase (Ast) (Sgot) Alanine Amino (Alt) (Sgpt) CReactive Protein Complete Cbc, Automated Orencia Abatacept Ther/Proph/Diag Iv Inf, Init Orencia Abatacept Ther/Proph/Diag Iv Inf, Init Orencia Abatacept Ther/Proph/Diag Iv Inf, Init Orencia Abatacept Ther/Proph/Diag Iv Inf, Init Orencia Abatacept Office/Outpatient Visit, Est Routine Venipuncture Assay Of Serum Albumin Assay Of Creatinine Transferase (Ast) (Sgot) Alanine Amino (Alt) (Sgpt) Orencia Abatacept Ther/Proph/Diag Iv Inf, Init Orencia Abatacept Ther/Proph/Diag Iv Inf, Init Orencia Abatacept Ther/Proph/Diag Iv Inf, Init Office/Outpatient Visit, Est Routine Venipuncture Assay Of Serum Albumin Assay Of Creatinine Transferase (Ast) (Sgot) Alanine Amino (Alt) (Sgpt) Complete Cbc, Automated Orencia Abatacept Ther/Proph/Diag Iv Inf, Init Orencia Abatacept Ther/Proph/Diag Iv Inf, Init Orencia Abatacept Ther/Proph/Diag Iv Inf, Init Orencia Abatacept Chemo, Iv Infusion, 1 Hr Office/Outpatient Visit, Est Routine Venipuncture Specimen Handling Assay Of Serum Albumin Assay Of Creatinine Transferase (Ast) (Sgot) Alanine Amino (Alt) (Sgpt) Vitamin D 25 Hydroxy Complete Cbc, Automated Orencia Abatacept Chemo, Iv Infusion, 1 Hr Orencia Abatacept Chemo, Iv Infusion, 1 Hr Office/Outpatient Visit, Est Routine Venipuncture Assay Of Serum Albumin Assay Of Creatinine Transferase (Ast) (Sgot) Alanine Amino (Alt) (Sgpt) Complete Cbc, Automated Orencia Abatacept Chemo, Iv Infusion, 1 Hr Orencia Abatacept Chemo, Iv Infusion, 1 Hr Orencia Abatacept Chemo, Iv Infusion, 1 Hr Office/Outpatient Visit, Est Remicade Infliximab Chemo, Iv Infusion, 1 Hr Chemo, Iv Infusion, Addl Hr Solumedrol Up To 40mg Tx/Proph/Dg Addl Seq Iv Inf Office/Outpatient Visit, Est Routine Venipuncture Rbc Sed Rate, Nonautomated Assay Of Serum Albumin Assay Of Creatinine Transferase (Ast) (Sgot) Alanine Amino (Alt) (Sgpt) CReactive Protein Complete Cbc WAuto Diff Wbc Remicade Infliximab Chemo, Iv Infusion, 1 Hr Chemo, Iv Infusion, Addl Hr Solumedrol Up To 40mg Tx/Proph/Dg Addl Seq Iv Inf Routine Venipuncture Transferase (Ast) (Sgot) Alanine Amino (Alt) (Sgpt) Remicade Infliximab Chemo, Iv Infusion, 1 Hr Chemo, Iv Infusion, Addl Hr Solumedrol Up To 40mg Tx/Proph/Dg Addl Seq Iv Inf Office/Outpatient Visit, Est Routine Venipuncture Assay Of Serum Albumin Assay Of Creatinine Transferase (Ast) (Sgot) Alanine Amino (Alt) (Sgpt) Complete Cbc, Automated Remicade Infliximab Chemo, Iv Infusion, 1 Hr Chemo, Iv Infusion, Addl Hr Solumedrol Up To 40mg Tx/Proph/Dg Addl Seq Iv Inf Remicade Infliximab Chemo, Iv Infusion, 1 Hr Chemo, Iv Infusion, Addl Hr Solumedrol Up To 40mg Tx/Proph/Dg Addl Seq Iv Inf Office/Outpatient Visit, Est Routine Venipuncture Assay Of Serum Albumin Assay Of Creatinine Transferase (Ast) (Sgot) Alanine Amino (Alt) (Sgpt) Complete Cbc, Automated Remicade Infliximab Chemo, Iv Infusion, 1 Hr Chemo, Iv Infusion, Addl Hr Solumedrol Up To 40mg Tx/Proph/Dg Addl Seq Iv Inf Office/Outpatient Visit, Est Routine Venipuncture Specimen Handling Assay Of Serum Albumin Assay Of Creatinine Transferase (Ast) (Sgot) Alanine Amino (Alt) (Sgpt) CReactive Protein Tb Test, Cell Immun Measure Complete Cbc, Automated Remicade Infliximab Chemo, Iv Infusion, 1 Hr Chemo, Iv Infusion, Addl Hr Solumedrol Up To 40mg Tx/Proph/Dg Addl Seq Iv Inf Remicade Infliximab Chemo, Iv Infusion, 1 Hr Chemo, Iv Infusion, Addl Hr Solumedrol Up To 40mg Tx/Proph/Dg Addl Seq Iv Inf Office/Outpatient Visit, Est Routine Venipuncture Assay Of Serum Albumin Assay Of Creatinine Transferase (Ast) (Sgot) Alanine Amino (Alt) (Sgpt) CReactive Protein Complete Cbc, Automated Remicade Infliximab Chemo, Iv Infusion, 1 Hr Chemo, Iv Infusion, Addl Hr Solumedrol Up To 40mg Tx/Proph/Dg Addl Seq Iv Inf Remicade Infliximab Chemo, Iv Infusion, 1 Hr Chemo, Iv Infusion, Addl Hr Solumedrol Up To 40mg Tx/Proph/Dg Addl Seq Iv Inf Office/Outpatient Visit, Est Routine Venipuncture Assay Of Serum Albumin Assay Of Creatinine Transferase (Ast) (Sgot) Alanine Amino (Alt) (Sgpt) CReactive Protein Complete Cbc, Automated Remicade Infliximab Chemo, Iv Infusion, 1 Hr Chemo, Iv Infusion, Addl Hr Solumedrol Up To 40mg Tx/Proph/Dg Addl Seq Iv Inf Office/Outpatient Visit, Est Routine Venipuncture Rbc Sed Rate, Nonautomated Assay Of Serum Albumin Assay Of Creatinine Transferase (Ast) (Sgot) Alanine Amino (Alt) (Sgpt) CReactive Protein Complete Cbc, Automated Remicade Infliximab Chemo, Iv Infusion, 1 Hr Chemo, Iv Infusion, Addl Hr Normal Saline Solution Infus Solumedrol Up To 40mg Tx/Proph/Dg Addl Seq Iv Inf Office/Outpatient Visit, Est Routine Venipuncture CReactive Protein Assay Of Serum Albumin Assay Of Creatinine Transferase (Ast) (Sgot) Alanine Amino (Alt) (Sgpt) Complete Cbc, Automated Remicade Infliximab Chemo, Iv Infusion, 1 Hr Chemo, Iv Infusion, Addl Hr Normal Saline Solution Infus Solumedrol Up To 40mg Tx/Proph/Dg Addl Seq Iv Inf Office/Outpatient Visit, Est Routine Venipuncture Rbc Sed Rate, Nonautomated Assay Of Serum Albumin Assay Of Creatinine Transferase (Ast) (Sgot) Alanine Amino (Alt) (Sgpt) CReactive Protein Complete Cbc, Automated Remicade Infliximab Chemo, Iv Infusion, 1 Hr Normal Saline Solution Infus Solumedrol Up To 40mg Tx/Proph/Dg Addl Seq Iv Inf Tx/Pro/Dx Inj New Drug Addon Office/Outpatient Visit, Est Routine Venipuncture Complete Cbc, Automated Assay Of Serum Albumin Assay Of Creatinine Transferase (Ast) (Sgot) Alanine Amino (Alt) (Sgpt) Remicade Infliximab Chemo, Iv Infusion, 1 Hr Chemo, Iv Infusion, Addl Hr Normal Saline Solution Infus Remicade Infliximab Chemo, Iv Infusion, 1 Hr Chemo, Iv Infusion, Addl Hr Normal Saline Solution Infus Remicade Infliximab Chemo, Iv Infusion, 1 Hr Chemo, Iv Infusion, Addl Hr Normal Saline Solution Infus Office/Outpatient Visit, Est Routine Venipuncture Rbc Sed Rate, Nonautomated Assay Of Serum Albumin Assay Of Creatinine Transferase (Ast) (Sgot) Alanine Amino (Alt) (Sgpt) CReactive Protein Complete Cbc, Automated Office/Outpatient Visit, Est Routine Venipuncture Rbc Sed Rate, Nonautomated Assay Of Serum Albumin Assay Of Creatinine Transferase (Ast) (Sgot) Alanine Amino (Alt) (Sgpt) CReactive Protein Complete Cbc, Automated Sent Home By Infusion Staff Remicade Infliximab Chemo, Iv Infusion, 1 Hr Chemo, Iv Infusion, Addl Hr Normal Saline Solution Infus Office/Outpatient Visit, Est Routine Venipuncture Complete Cbc, Automated Assay Of Serum Albumin Assay Of Creatinine Transferase (Ast) (Sgot) Alanine Amino (Alt) (Sgpt) Routine Venipuncture Transferase (Ast) (Sgot) Alanine Amino (Alt) (Sgpt) Remicade Infliximab Chemo, Iv Infusion, 1 Hr Chemo, Iv Infusion, Addl Hr Normal Saline Solution Infus Routine Venipuncture Transferase (Ast) (Sgot) Alanine Amino (Alt) (Sgpt) Office/Outpatient Visit, Est Routine Venipuncture Complete Cbc, Automated Assay Of Serum Albumin Assay Of Creatinine Transferase (Ast) (Sgot) Alanine Amino (Alt) (Sgpt) Remicade Infliximab Chemo, Iv Infusion, 1 Hr Chemo, Iv Infusion, Addl Hr Normal Saline Solution Infus Remicade Infliximab Chemo, Iv Infusion, 1 Hr Chemo, Iv Infusion, Addl Hr Normal Saline Solution Infus Remicade Infliximab Chemo, Iv Infusion, 1 Hr Chemo, Iv Infusion, Addl Hr Normal Saline Solution Infus Office/Outpatient Visit, Est Routine Venipuncture Complete Cbc, Automated Assay Of Serum Albumin Assay Of Creatinine Transferase (Ast) (Sgot) Alanine Amino (Alt) (Sgpt) Dxa Bone Density, Axial Remicade Infliximab Chemo, Iv Infusion, 1 Hr Chemo, Iv Infusion, Addl Hr Normal Saline Solution Infus Sent Home By Infusion Staff Office/Outpatient Visit, Est Routine Venipuncture Specimen Handling Complete Cbc WAuto Diff Wbc Rbc Sed Rate, Nonautomated Assay Of Serum Albumin Assay Of Creatinine Transferase (Ast) (Sgot) Alanine Amino (Alt) (Sgpt) CReactive Protein Tb Test, Cell Immun Measure Office/Outpatient Visit, Est Routine Venipuncture Complete Cbc WAuto Diff Wbc Assay Of Serum Albumin Assay Of Creatinine Transferase (Ast) (Sgot) Alanine Amino (Alt) (Sgpt) Office/Outpatient Visit, Est Routine Venipuncture Complete Cbc WAuto Diff Wbc Assay Of Serum Albumin Assay Of Creatinine Transferase (Ast) (Sgot) Alanine Amino (Alt) (Sgpt) Office/Outpatient Visit, Est Routine Venipuncture Complete Cbc WAuto Diff Wbc Assay Of Serum Albumin Assay Of Creatinine Transferase (Ast) (Sgot) Alanine Amino (Alt) (Sgpt) Office/Outpatient Visit, Est Routine Venipuncture Complete Cbc WAuto Diff Wbc Assay Of Serum Albumin Assay Of Creatinine Transferase (Ast) (Sgot) Alanine Amino (Alt) (Sgpt) Office/Outpatient Visit, Est Routine Venipuncture Complete Cbc WAuto Diff Wbc Assay Of Serum Albumin Assay Of Creatinine Transferase (Ast) (Sgot) Alanine Amino (Alt) (Sgpt) Office/Outpatient Visit, Est Routine Venipuncture Complete Cbc WAuto Diff Wbc Assay Of Serum Albumin Assay Of Creatinine Transferase (Ast) (Sgot) Alanine Amino (Alt) (Sgpt) Office/Outpatient Visit, Est Routine Venipuncture Specimen Handling Complete Cbc WAuto Diff Wbc Assay Of Serum Albumin Assay Of Creatinine Transferase (Ast) (Sgot) Alanine Amino (Alt) (Sgpt) Office/Outpatient Visit, Est Routine Venipuncture Complete Cbc WAuto Diff Wbc Assay Of Serum Albumin Assay Of Creatinine Transferase (Ast) (Sgot) Alanine Amino (Alt) (Sgpt) Office/Outpatient Visit, Est Routine Venipuncture Complete Cbc WAuto Diff Wbc Rbc Sed Rate, Nonautomated CReactive Protein Assay Of Serum Albumin Assay Of Creatinine Transferase (Ast) (Sgot) Alanine Amino (Alt) (Sgpt) No Charge Nurse Visit Office/Outpatient Visit, Est Dxa Bone Density, Axial Routine Venipuncture Specimen Handling Complete Cbc WAuto Diff Wbc Assay Of Serum Albumin Assay Of Creatinine Transferase Ast Sgot Alanine Amino Alt Sgpt Office/Outpatient Visit, Est Routine Venipuncture Complete Cbc WAuto Diff Wbc Assay Of Serum Albumin Assay Of Creatinine Transferase Ast Sgot Alanine Amino Alt Sgpt Office/Outpatient Visit, Est Routine Venipuncture Complete Cbc WAuto Diff Wbc Assay Of Serum Albumin Assay Of Creatinine Transferase Ast Sgot Alanine Amino Alt Sgpt Office/Outpatient Visit, Est Routine Venipuncture Complete Cbc WAuto Diff Wbc Assay Of Serum Albumin Assay Of Creatinine Transferase Ast Sgot Alanine Amino Alt Sgpt Office/Outpatient Visit, Est Routine Venipuncture Complete Cbc WAuto Diff Wbc Assay Of Serum Albumin Assay Of Creatinine Transferase Ast Sgot Alanine Amino Alt Sgpt Office/Outpatient Visit, Est Routine Venipuncture Complete Cbc WAuto Diff Wbc Assay Of Serum Albumin Assay Of Creatinine Transferase Ast Sgot Alanine Amino Alt Sgpt Advance Directives Directive Yes / No Effective Date File Name No Information Encounters Encounter Description Practice Location Reason(s) For Visit Diagnoses Date Provider Providers Copied on Encounter [facility] , [address], [place], [address], [place] tel:[phone] [facility] , No Information 0 3 Yfn Tran. [facility] [address], [place], [address], [place]. tel:[phone] [facility] , [address], [place], [address], [place] tel:[phone] [facility] , No Information 3 Yfn Tran. [facility] [address], [place], [address], [place]. tel:[phone] Referring Provider: Marc Isaac, [facility] [address], [place], [address]. tel:[phone] [facility] , [address], [place], [address], [place] tel:[phone] [facility] , No Information 3 Yfn Tran. [facility] [address], [place], [address], [place]. tel:[phone] Referring Provider: Marc Isaac, [facility] [address], [place], [address]. tel:[phone] [facility] , [address], [place], [address], [place] tel:[phone] [facility] , No Information 3 Yfn Tran. [facility] [address], [place], [address], [place]. tel:[phone] Referring Provider: Marc Isaac, [facility] [address], [place], [address]. tel:[phone] Office/Outpa tient Visit, Est [facility] , [address], [place], [address], [place] tel:[phone] [facility] , Rheumatoid arthritis (chief complaint) Seronegative RAPolyosteoa rthritis, unspecifiedS icca syndrome, unspecifiedE levated liver enzymesB[facility] Cancer Centere [facility] lingHigh risk medication monitoring 3 Yfn Tran. [facility] [address], [place], [address], [place]. tel:[phone] Referring Provider: Marc Isaac, [facility] [address], [place], [address]. tel:[phone] [facility] , [address], [place], [address], [place] tel:[phone] [facility] , No Information 3 Yfn Tran. [facility] [address], [place], [address], [place]. tel:[phone] Referring Provider: Marc Isaac, [facility] [address], [place], [address]. tel:[phone] [facility] , [address], [place], [address], [place] tel:[phone] [facility] , No Information 3 Yfn Tran. [facility] [address], [place], [address], [place]. tel:[phone] Referring Provider: Marc Isaac, [facility] [address], [place], [address]. tel:[phone] [facility] , [address], [place], [address], [place] tel:[phone] [facility] , No Information 3 Yfn Palmerad. [facility] [address], [place], [address], [place]. tel:[phone] [facility] , [address], [place], [address], [place] tel:[phone] [facility] , No Information 3 Yfn Palmerad. [facility] [address], [place], [address], [place]. tel:[phone] Referring Provider: Marc Isaac, [facility] [address], [place], [address]. tel:[phone] [facility] , [address], [place], [address], [place] tel:[phone] [facility] , No Information 2 Skemp Ruben. [facility] [address], [place], [address], [place]. tel:[phone] Referring Provider: Ruben Skemp A, [facility] [address], [place], [address]. tel:[phone] Office/Outpa tient Visit, Est [facility] , [address], [place], [address], [place] tel:[phone] [facility] , Rheumatoid arthritis (chief complaint) Seronegative RAPolyosteoa rthritis, unspecifiedS icca syndrome, unspecifiedE levated liver enzymesBone healthCounse lingHigh risk medication monitoring 2 Yfn Tran. [facility] [address], [place], [address], [place]. tel:[phone] Referring Provider: Marc Isaac, [facility] [address], [place], [address]. tel:[phone] [facility] , [address], [place], [address], [place] tel:[phone] [facility] , No Information 2 Tucker Fernando. [facility] [address], [place], [address], [place]. tel:[phone] Referring Provider: Abdullahi Loza, [facility] [address], [place], [address]. tel:[phone] Office/Outpa tient Visit, Est [facility] , [address], [place], [address], [place] tel:[phone] [facility] , Rheumatoid arthritis (chief complaint) Seronegative RAPolyosteoa rthritis, unspecifiedS icca syndrome, unspecifiedE levated liver enzymesBone healthCounse lingHigh risk medication monitoring 2 Yfn Tran. [facility] [address], [place], [address], [place]. tel:[phone] Referring Provider: Marc Isaac, [facility] [address], [place], [address]. tel:[phone] [facility] , [address], [place], [address], [place] tel:[phone] [facility] , No Information 2 Gary Miranda. [facility] [address], [place], [address], [place]. tel:[phone] Referring Provider: Ruben Vega A, [facility] [address], [place], [address]. tel:[phone] [facility] , [address], [place], [address], [place] tel:[phone] [facility] , No Information 2 Yfn Tran. [facility] [address], [place], [address], [place]. tel:[phone] Referring Provider: Marc Isaac, [facility] [address], [place], [address]. tel:[phone] [facility] , [address], [place], [address], [place] tel:[phone] [facility] , No Information 2 Yfn Tran. [facility] [address], [place], [address], [place]. tel:[phone] Referring Provider: Marc Isaac, [facility] [address], [place], [address]. tel:[phone] [facility] , [address], [place], [address], [place] tel:[phone] [facility] , No Information 2 Yfn Tran. [facility] [address], [place], [address], [place]. tel:[phone] Referring Provider: Marc Isaac, [facility] [address], [place], [address]. tel:[phone] [facility] , [address], [place], [address], [place] tel:[phone] [facility] , No Information 1 Gary Miranda. [facility] [address], [place], [address], [place]. tel:[phone] Referring Provider: Ruben Isaac, [facility] [address], [place], [address]. tel:[phone] Office/Outpa tient Visit, Est [facility] , [address], [place], [address], [place] tel:[phone] [facility] , Rheumatoid arthritis (chief complaint) Seronegative RAPolyosteoa rthritis, unspecifiedS icca syndrome, unspecifiedE levated liver enzymesBanner Md Anderson Cancer Centere [facility] medical centerHigh risk medication monitoring 1 Yfn Tran. [facility] [address], [place], [address], [place]. tel:[phone] Referring Provider: Marc Isaac, [facility] [address], [place], [address]. tel:[phone] [facility] , [address], [place], [address], [place] tel:[phone] [facility] , No Information 1 Yfn Tran. [facility] [address], [place], [address], [place]. tel:[phone] Referring Provider: Marc Isaac, [facility] [address], [place], [address]. tel:[phone] [facility] , [address], [place], [address], [place] tel:[phone] [facility] , No Information 1 Yfn Tran. [facility] [address], [place], [address], [place]. tel:[phone] Referring Provider: Marc Isaac, [facility] [address], [place], [address]. tel:[phone] [facility] , [address], [place], [address], [place] tel:[phone] [facility] , No Information 1 Yfn Tran. [facility] [address], [place], [address], [place]. tel:[phone] Referring Provider: Marc Isaac, [facility] [address], [place], [address]. tel:[phone] Office/Outpa tient Visit, Est [facility] , [address], [place], [address], [place] tel:[phone] [facility] , Rheumatoid arthritis (chief complaint) Seronegative RAPolyosteoa rthritis, unspecifiedS icca syndrome, unspecifiedE levated liver enzymesB[facility] Cent[facility] risk medication monitoring 1 Yfn Tran. [facility] [address], [place], [address], [place]. tel:[phone] Referring Provider: Marc Isaac, [facility] [address], [place], [address]. tel:[phone] [facility] , [address], [place], [address], [place] tel:[phone] [facility] , No Information 1 Yfn Tran. [facility] [address], [place], [address], [place]. tel:[phone] Referring Provider: Marc Isaac, [facility] [address], [place], [address]. tel:[phone] [facility] , [address], [place], [address], [place] tel:[phone] [facility] , No Information 1 Yfn Tran. [facility] [address], [place], [address], [place]. tel:[phone] Referring Provider: Marc Isaac, [facility] [address], [place], [address]. tel:[phone] [facility] , [address], [place], [address], [place] tel:[phone] [facility] , No Information 1 Yfn Tran. [facility] [address], [place], [address], [place]. tel:[phone] Referring Provider: Marc Isaac, [facility] [address], [place], [address]. tel:[phone] [facility] , [address], [place], [address], [place] tel:[phone] [facility] , No Information 1 Yfn Tran. [facility] [address], [place], [address], [place]. tel:[phone] Referring Provider: Marc Isaac, [facility] [address], [place], [address]. tel:[phone] Office/Outpa tient Visit, Est [facility] , [address], [place], [address], [place] tel:[phone] [facility] , Rheumatoid arthritis (chief complaint) Seronegative RAPolyosteoa rthritis, unspecifiedS icca syndrome, unspecifiedE levated liver enzymesB[facility] Centere [facility] lingHigh risk medication monitoringFa [facility] 1 Yfn Tran. [facility] [address], [place], [address], [place]. tel:[phone] Referring Provider: Marc Isaac, [facility] [address], [place], [address]. tel:[phone] [facility] , [address], [place], [address], [place] tel:[phone] [facility] , No Information 1 Yfn Tran. [facility] [address], [place], [address], [place]. tel:[phone] Referring Provider: Marc Isaac, [facility] [address], [place], [address]. tel:[phone] [facility] , [address], [place], [address], [place] tel:[phone] [facility] , No Information 1 Yfn Tran. [facility] [address], [place], [address], [place]. tel:[phone] Referring Provider: Marc Isaac, [facility] [address], [place], [address]. tel:[phone] Office/Outpa tient Visit, Est [facility] , [address], [place], [address], [place] tel:[phone] [facility] , Rheumatoid arthritis (chief complaint) Seronegative RAPolyosteoa rthritis, unspecifiedS icca syndrome, unspecifiedE levated liver enzymesB[facility] Centere [facility] lingHigh risk medication monitoring 1 Yfn Tran. [facility] [address], [place], [address], [place]. tel:[phone] Referring Provider: Marc Isaac, [facility] [address], [place], [address]. tel:[phone] [facility] , [address], [place], [address], [place] tel:[phone] [facility] , No Information 1 Yfn Tran. [facility] [address], [place], [address], [place]. tel:[phone] Referring Provider: Marc Isaac, [facility], [facility] [address], [place], [address]. tel:[phone] [facility] , [address], [place], [address], [place] tel:[phone] [facility] , No Information 0 Td Gonzalez. [facility] [address], [place], [address], [place]. tel:[phone] Referring Provider: Lisa Price, [facility] [address], [place], [address]. tel:[phone] [facility] , [address], [place], [address], [place] tel:[phone] [facility] , No Information 0 Yfn Tran. [facility] [address], [place], [address], [place]. tel:[phone] Referring Provider: Marc Isaac, [facility] [address], [place], [address]. tel:[phone] Office/Outpa tient Visit, Est [facility] , [address], [place], [address], [place] tel:[phone] Telehealth Rheumatoid arthritis (chief complaint) CounselingSe ronegative RAPolyosteoa rthritis, unspecifiedS icca syndrome, unspecifiedE levated liver enzymesBone healthHigh risk medication monitoring 0 Yfn Tran. [facility] [address], [place], [address], [place]. tel:[phone] Referring Provider: Marc Isaac, [facility] [address], [place], [address]. tel:[phone] [facility] , [address], [place], [address], [place] tel:[phone] [facility] , No Information 0 Yfn Tran. [facility] [address], [place], [address], [place]. tel:[phone] Referring Provider: Marc Isaac, [facility] [address], [place], [address]. tel:[phone] Office/Outpa tient Visit, Est [facility] , [address], [place], [address], [place] tel:[phone] [facility] , Rheumatoid arthritis (chief complaint) Seronegative RAPolyosteoa rthritis, unspecifiedS icca syndrome, unspecifiedE levated liver enzymesBone healthHigh risk medication monitoringLo w back painCounseli ng 0 Yfn Tran. [facility] , [facility] [address], [place], [address], [place]. tel:[phone] Referring Provider: Marc Isaac, [facility] [address], [place], [address]. tel:[phone] [facility] , [address], [place], [address], [place] tel:[phone] [facility] , No Information 0 Yfn Tran. [facility] [address], [place], [address], [place]. tel:[phone] Referring Provider: Marc Isaac, [facility] [address], [place], [address]. tel:[phone] [facility] , [address], [place], [address], [place] tel:[phone] [facility] , No Information 0 Yfn Tran. [facility] [address], [place], [address], [place]. tel:[phone] Referring Provider: Marc Isaac, [facility] [address], [place], [address]. tel:[phone] [facility] , [address], [place], [address], [place] tel:[phone] [facility] , No Information 0 Yfn Tran. [facility] [address], [place], [address], [place]. tel:[phone] Referring Provider: Marc Isaac, [facility] [address], [place], [address]. tel:[phone] Office/Outpa tient Visit, Est [facility] , [address], [place], [address], [place] tel:[phone] [facility] , Rheumatoid arthritis (chief complaint) Seronegative RAPolyosteoa rthritis, unspecifiedS icca syndrome, unspecifiedE levated liver enzymesBone healthHigh risk medication monitoringLo w back pain Dec- 0 Yfn Tran. [facility] , [facility] [address], [place], [address], [place]. tel:[phone] Referring Provider: Marc Isaac, [facility] [address], [place], [address]. tel:[phone] [facility] , [address], [place], [address], [place] tel:[phone] [facility] , No Information 0 Yfn Tran. [facility] [address], [place], [address], [place]. tel:[phone] Referring Provider: Marc Isaac, [facility] [address], [place], [address]. tel:[phone] [facility] , [address], [place], [address], [place] tel:[phone] [facility] , No Information 0 Yfn Tran. [facility] [address], [place], [address], [place]. tel:[phone] Referring Provider: Marc Isaac, [facility] [address], [place], [address]. tel:[phone] Office/Outpa tient Visit, Est [facility] , [address], [place], [address], [place] tel:[phone] [facility] , Rheumatoid arthritis (chief complaint) Seronegative RAPolyosteoa rthritis, unspecifiedS icca syndrome, unspecifiedE levated liver enzymesBone healthHigh risk medication monitoring 0 Yfn Tran. [facility] , [facility] [address], [place], [address], [place]. tel:[phone] Referring Provider: Marc Isaac, [facility] [address], [place], [address]. tel:[phone] [facility] , [address], [place], [address], [place] tel:[phone] [facility] , No Information Yfn Tran. [facility] [address], [place], [address], [place]. tel:[phone] Referring Provider: Marc Isaac, [facility] [address], [place], [address]. tel:[phone] Office/Outpa tient Visit, Est [facility] , [address], [place], [address], [place] tel:[phone] [facility] , Rheumatoid arthritis (chief complaint) Seronegative RAPolyosteoa rthritis, unspecifiedS icca syndrome, unspecifiedE levated liver enzymesBone healthHigh risk medication monitoring Yfn Tran. [facility] [address], [place], [address], [place]. tel:[phone] Referring Provider: Marc Isaac, [facility] [address], [place], [address]. tel:[phone] [facility] , [address], [place], [address], [place] tel:[phone] [facility] , No Information Yfn Marc. [facility] [address], [place], [address], [place]. tel:[phone] Referring Provider: Marc Isaac, [facility] [address], [place], [address]. tel:[phone] [facility] , [address], [place], [address], [place] tel:[phone] [facility] , No Information Yfn Tran. [facility] [address], [place], [address], [place]. tel:[phone] Referring Provider: Marc Isaac, [facility] [address], [place], [address]. tel:[phone] Office/Outpa tient Visit, Est [facility] , [address], [place], [address], [place] tel:[phone] [facility] , Rheumatoid arthritis (chief complaint) Seronegative RAPolyosteoa rthritis, unspecifiedS icca syndrome, unspecifiedE levated liver enzymesBone healthWhe[facility] risk medication monitoring Yfn Tran. [facility] , [facility] [address], [place], [address], [place]. tel:[phone] Referring Provider: Marc Isaac, [facility] [address], [place], [address]. tel:[phone] [facility] , [address], [place], [address], [place] tel:[phone] [facility] , No Information 9 Gary Miranda. [facility] , [facility] [address], [place], [address], [place]. tel:[phone] Referring Provider: Ruben Vega A, [facility] [address], [place], [address]. tel:[phone] [facility] , [address], [place], [address], [place] tel:[phone] [facility] , No Information Yfn Tran. [facility] , [facility] [address], [place], [address], [place]. tel:[phone] Referring Provider: Marc Isaac, [facility] [address], [place], [address]. tel:[phone] Office/Outpa tient Visit, Est [facility] , [address], [place], [address], [place] tel:[phone] [facility] , Rheumatoid arthritis (chief complaint) Seronegative RAPolyosteoa rthritis, unspecifiedS icca syndrome, unspecifiedE levated liver enzymesBone healthHigh risk medication monitoringTe ndinitis Yfn Tran. [facility] , [facility] [address], [place], [address], [place]. tel:[phone] Referring Provider: Marc Isaac, [facility] [address], [place], [address]. tel:[phone] [facility] , [address], [place], [address], [place] tel:[phone] [facility] , No Information 9 Sharlene Russell. [facility] , [facility] [address], [place], [address], [place]. tel:[phone] Referring Provider: Drew Hdez, [facility] [address], [place], [address]. tel:[phone] Office/Outpa tient Visit, Est [facility] , [address], [place], [address], [place] tel:[phone] [facility] , Rheumatoid arthritis (chief complaint) Seronegative RAPolyosteoa rthritis, unspecifiedS icca syndrome, unspecifiedE levated liver enzymesBone [facility] risk medication monitoring 8 Yfn Tran. [facility] , [facility] [address], [place], [address], [place]. tel:[phone] Referring Provider: Marc Isaac, [facility] [address], [place], [address]. tel:[phone] [facility] , [address], [place], [address], [place] tel:[phone] [facility] , No Information 8 Yfn Tran. [facility] , [facility] [address], [place], [address], [place]. tel:[phone] Referring Provider: Marc Isaac, [facility] [address], [place], [address]. tel:[phone] Office/Outpa tient Visit, Est [facility] , [address], [place], [address], [place] tel:[phone] [facility] , Rheumatoid arthritis (chief complaint) Seronegative RAPolyosteoa rthritis, unspecifiedS icca syndrome, unspecifiedE levated liver enzymesBone healthHigh risk medication monitoring 8 Yfn Tran. [facility] , [facility] [address], [place], [address], [place]. tel:[phone] Referring Provider: Marc Isaac, [facility] [address], [place], [address]. tel:[phone] [facility] , [address], [place], [address], [place] tel:[phone] [facility] , Seronegative RA 8 Gary Miranda. [facility] , [facility] [address], [place], [address], [place]. tel:[phone] Referring Provider: Ruben Isaac [facility] [address], [place], [address]. tel:[phone] Office/Outpa tient Visit, Est [facility] , [address], [place], [address], [place] tel:[phone] [facility] , Rheumatoid arthritis (chief complaint) Seronegative RAPolyosteoa rthritis, unspecifiedS icca syndrome, unspecifiedE levated liver enzymesBone healthHigh risk medication monitoring 0 8 Yfn Tran. [facility] , [facility] [address], [place], [address], [place]. tel:[phone] Referring Provider: Marc Isaac, [facility] [address], [place], [address]. tel:[phone] [facility] , [address], [place], [address], [place] tel:[phone] [facility] , Seronegative RA Oct-2 8 [facility] Marc. [facility] , [facility] [address], [place], [address], [place]. tel:[phone] Referring Provider: Marc Isaac, [facility] [address], [place], [address]. tel:[phone] Office/Outpa tient Visit, Est [facility] , [address], [place], [address], [place] tel:[phone] [facility] , Rheumatoid arthritis (chief complaint) Seronegative RAPolyosteoa rthritis, unspecifiedS icca syndrome, unspecifiedE levated liver enzymesBone [facility] risk medication monitoring Aug- 8 Yfngracieal Tran. [facility] , [facility] [address], [place], [address], [place]. tel:[phone] Referring Provider: Marc Isaac, [facility] [address], [place], [address]. tel:[phone] [facility] , [address], [place], [address], [place] tel:[phone] [facility] , Seronegative RA Feb- 8 [facility] Marc. [facility] , [facility] [address], [place], [address], [place]. tel:[phone] Referring Provider: Marc Isaac, [facility] [address], [place], [address]. tel:[phone] [facility] , [address], [place], [address], [place] tel:[phone] [facility] , Seronegative RA 8 Yfn Tran. [facility] , [facility] [address], [place], [address], [place]. tel:[phone] Referring Provider: Marc Isaac, [facility] [address], [place], [address]. tel:[phone] [facility] , [address], [place], [address], [place] tel:[phone] [facility] , Seronegative RA Yfn Tran. [facility] [address], [place], [address], [place]. tel:[phone] Referring Provider: Marc Isaac, [facility] [address], [place], [address]. tel:[phone] Office/Outpa tient Visit, Est [facility] , [address], [place], [address], [place] tel:[phone] [facility] , Rheumatoid arthritis (chief complaint) Seronegative RAPolyosteoa rthritis, unspecifiedS icca syndrome, unspecifiedE levated liver enzymesBone healthWhe[facility] risk medication monitoring 7 Yfn Tran. [facility] [address], [place], [address], [place]. tel:[phone] Referring Provider: Marc Isaac, [facility] [address], [place], [address]. tel:[phone] Office/Outpa tient Visit, Est [facility] , [address], [place], [address], [place] tel:[phone] [facility] , Rheumatoid arthritis (chief complaint) Seronegative RAPolyosteoa rthritis, unspecifiedS icca syndrome, unspecifiedE levated liver enzymesBone [facility] risk medication monitoring Yfn Tran. [facility] [address], [place], [address], [place]. tel:[phone] Referring Provider: Marc Isaac, [facility] [address], [place], [address]. tel:[phone] [facility] , [address], [place], [address], [place] tel:[phone] [facility] , No Information Yfn Tran. [facility] [address], [place], [address], [place]. tel:[phone] Referring Provider: Marc Isaac, [facility] [address], [place], [address]. tel:[phone] [facility] , [address], [place], [address], [place] tel:[phone] [facility] , Seronegative RA Sharlene Russell. [facility] [address], [place], [address], [place]. tel:[phone] Referring Provider: Drew Hdez, [facility] [address], [place], [address]. tel:[phone] Office/Outpa tient Visit, Est [facility] , [address], [place], [address], [place] tel:[phone] [facility] , Rheumatoid arthritis (chief complaint) Seronegative RAPolyosteoa rthritis, unspecifiedS icca syndrome, unspecifiedB one healthHigh risk medication monitoringEl evated liver enzymes 0 8 7 Yfn Tran. [facility] [facility] [address], [place], [address], [place]. tel:[phone] Referring Provider: Marc Isaac, [facility] [address], [place], [address]. tel:[phone] [facility] , [address], [place], [address], [place] tel:[phone] [facility] , No Information 2 0 7 Yfn Tran. [facility] [address], [place], [address], [place]. tel:[phone] Referring Provider: Marc Isaac, [facility] [address], [place], [address]. tel:[phone] [facility] , [address], [place], [address], [place] tel:[phone] [facility] , Seronegative RA Aug- 3201 7 Yfn Tran. [facility] [address], [place], [address], [place]. tel:[phone] Referring Provider: Marc Isaac, [facility] [address], [place], [address]. tel:[phone] [facility] , [address], [place], [address], [place] tel:[phone] [facility] , No Information [facility] Marc. [facility] [address], [place], [address], [place]. tel:[phone] Referring Provider: Marc Isaac, [facility] [address], [place], [address]. tel:[phone] Office/Outpa tient Visit, Est [facility] , [address], [place], [address], [place] tel:[phone] [facility] , Rheumatoid arthritis (chief complaint) Seronegative RAPolyosteoa rthritis, unspecifiedS icca syndrome, unspecifiedB one healthHigh risk medication monitoring [facility] Marc. [facility] [address], [place], [address], [place]. tel:[phone] Referring Provider: Marc Isaac, [facility] [address], [place], [address]. tel:[phone] [facility] , [address], [place], [address], [place] tel:[phone] [facility] , Seronegative RA [facility] Marc. [facility] [address], [place], [address], [place]. tel:[phone] Referring Provider: Marc Isaac, [facility] [address], [place], [address]. tel:[phone] [facility] , [address], [place], [address], [place] tel:[phone] [facility] , Seronegative RA 6 [facility] Marc. [facility] [address], [place], [address], [place]. tel:[phone] Referring Provider: Marc Isaac, [facility] [address], [place], [address]. tel:[phone] [facility] , [address], [place], [address], [place] tel:[phone] [facility] , Seronegative RA 6 Yfn Marc. [facility] [address], [place], [address], [place]. tel:[phone] Referring Provider: Marc Isaac, [facility] [address], [place], [address]. tel:[phone] Office/Outpa tient Visit, Est [facility] , [address], [place], [address], [place] tel:[phone] [facility] , Rheumatoid arthritis (chief complaint) Seronegative RAPolyosteoa rthritis, unspecifiedS icca syndrome, unspecifiedH igh risk medication [facility] ed liver enzymes 3201 6 Yfnlamonte Tran. [facility] [address], [place], [address], [place]. tel:[phone] Referring Provider: Marc Isaac, [facility] [address], [place], [address]. tel:[phone] [facility] , [address], [place], [address], [place] tel:[phone] [facility] , equipment [employer] (current) use of systemic steroids Apr- 6 [facility] Marc. [facility] [address], [place], [address], [place]. tel:[phone] Referring Provider: Marc Isaac, [facility] [address], [place], [address]. tel:[phone] [facility] , [address], [place], [address], [place] tel:[phone] [facility] , Seronegative RA 6 [facility] Mrac. [facility] [address], [place], [address], [place]. tel:[phone] Referring Provider: Marc Isaac, [facility] [address], [place], [address]. tel:[phone] [facility] , [address], [place], [address], [place] tel:[phone] [facility] , No Information 6 Yfngraciela Tran. [facility] [address], [place], [address], [place]. tel:[phone] Referring Provider: Marc Isaac, [facility] [address], [place], [address]. tel:[phone] Office/Outpa tient Visit, Est [facility] , [address], [place], [address], [place] tel:[phone] [facility] , Rheumatoid arthritis (chief complaint) Seronegative RAPolyosteoa rthritis, unspecifiedS icca syndrome, unspecifiedH igh [facility] 6 Yfn Tran. [facility] [address], [place], [address], [place]. tel:[phone] Referring Provider: Marc Isaac, [facility] [address], [place], [address]. tel:[phone] Office/Outpa tient Visit, Est [facility] , [address], [place], [address], [place] tel:[phone] [facility] , Rheumatoid arthritis (chief complaint) Seronegative RAPolyosteoa rthritis, unspecifiedS icca syndrome, unspecifiedH igh risk medication [facility] 6 Yfn Tran. [facility] [address], [place], [address], [place]. tel:[phone] Referring Provider: Marc Isaac, [facility] [address], [place], [address]. tel:[phone] Office/Outpa tient Visit, Est [facility] , [address], [place], [address], [place] tel:[phone] [facility] , Rheumatoid arthritis (chief complaint) Seronegative RAPolyosteoa rthritis, unspecifiedS icca syndrome, unspecifiedH igh risk medication monitoringBo [facility] Aug- 6 Yfn Tran. [facility] [address], [place], [address], [place]. tel:[phone] Referring Provider: Marc Isaac, [facility] [address], [place], [address]. tel:[phone] Office/Outpa tient Visit, Est [facility] , [address], [place], [address], [place] tel:[phone] [facility] , Rheumatoid arthritis (chief complaint) Sicca syndromeRheu matoid ArthritisThe rapeutic Drug MonitoringBo [facility] 5 Yfn Tran. [facility] [address], [place], [address], [place]. tel:[phone] Referring Provider: Marc Isaac, [facility] [address], [place], [address]. tel:[phone] Office/Outpa tient Visit, Est [facility] , [address], [place], [address], [place] tel:[phone] [facility] , Rheumatoid arthritis (chief complaint) Rheumatoid ArthritisThe rapeutic [facility] 5 Yfn Tran. [facility] [address], [place], [address], [place]. tel:[phone] Referring Provider: Marc Isaac, [facility] [address], [place], [address]. tel:[phone] Office/Outpa tient Visit, Est [facility] , [address], [place], [address], [place] tel:[phone] [facility] , Rheumatoid Arthritis (chief complaint) Rheumatoid ArthritisThe rapeutic Drug MonitoringOt her specified counseling 5 Yfn Tran. [facility] [address], [place], [address], [place]. tel:[phone] Referring Provider: Marc Isaac, [facility] [address], [place], [address]. tel:[phone] Office/Outpa tient Visit, Est [facility] , [address], [place], [address], [place] tel:[phone] [facility] , Rheumatoid Arthritis (chief complaint) Rheumatoid ArthritisOth er specified counselingTh erapeutic Drug Monitoring 4 Yfn Tran. [facility] [address], [place], [address], [place]. tel:[phone] Referring Provider: Marc Isaac, [facility] [address], [place], [address]. tel:[phone] Office/Outpa tient Visit, Est [facility] , [address], [place], [address], [place] tel:[phone] [facility] , Rheumatoid Arthritis (chief complaint) Rheumatoid ArthritisOth er specified counselingTh erapeutic Drug MonitoringDi sturbance of salivary secretion 4 Yfn Tran. [facility] [address], [place], [address], [place]. tel:[phone] Referring Provider: Marc Isaac, [facility] [address], [place], [address]. tel:[phone] Office/Outpa tient Visit, Est [facility] , [address], [place], [address], [place] tel:[phone] [facility] , Rheumatoid Arthritis (chief complaint) Rheumatoid ArthritisOth er specified counselingTh erapeutic Drug MonitoringMy algia and myositis, unspecified Yfn Tran. [facility] [address], [place], [address], [place]. tel:[phone] Referring Provider: Marc Isaac, [facility] [address], [place], [address]. tel:[phone] Office/Outpa tient Visit, Est [facility] , [address], [place], [address], [place] tel:[phone] [facility] , Rheumatoid Arthritis (chief complaint) Rheumatoid ArthritisOth er specified counselingTh erapeutic Drug Monitoring Yfn Tran. [facility] [address], [place], [address], [place]. tel:[phone] Referring Provider: Marc Isaac, [facility] [address], [place], [address]. tel:[phone] [facility] , [address], [place], [address], [place] tel:[phone] [facility] , No Information 3 Yfn Tran. [facility] [address], [place], [address], [place]. tel:[phone] Referring Provider: Marc Isaac, [facility] [address], [place], [address]. tel:[phone] Office/Outpa tient Visit, Est [facility] , [address], [place], [address], [place] tel:[phone] [facility] , Rheumatoid Arthritis (chief complaint) Rheumatoid ArthritisThe rapeutic Drug MonitoringOt her specified counseling Mar- 3 Yfngraciela Tran. [facility] [address], [place], [address], [place]. tel:[phone] Referring Provider: Marc Isaac, [facility] [address], [place], [address]. tel:[phone] [facility] , [address], [place], [address], [place] tel:[phone] [facility] , No Information 3 Yfn Marc. [facility] [address], [place], [address], [place]. tel:[phone] Referring Provider: Marc Isaac, [facility] [address], [place], [address]. tel:[phone] [facility] , [address], [place], [address], [place] tel:[phone] [facility] , No Information 3 Yfn Tran. [facility] [address], [place], [address], [place]. tel:[phone] Referring Provider: Marc Isaac, [facility] [address], [place], [address]. tel:[phone] Office/Outpa tient Visit, Est [facility] , [address], [place], [address], [place] tel:[phone] [facility] , Rheumatoid Arthritis (chief complaint) Rheumatoid ArthritisOth er specified counselingTh erapeutic Drug Monitoring 3 Yfn Tran. [facility] [address], [place], [address], [place]. tel:[phone] Referring Provider: Marc Isaac, [facility] [address], [place], [address]. tel:[phone] Office/Outpa tient Visit, Est [facility] , [address], [place], [address], [place] tel:[phone] [facility] , Rheumatoid Arthritis (chief complaint) Rheumatoid ArthritisThe rapeutic Drug MonitoringMy algia and myositis, unspecifiedO ther specified counseling 3 Yfn Tran. [facility] [address], [place], [address], [place]. tel:[phone] Referring Provider: Marc Isaac, [facility] [address], [place], [address]. tel:[phone] Office/Outpa tient Visit, Est [facility] , [address], [place], [address], [place] tel:[phone] [facility] , Rheumatoid Arthritis (chief complaint) Rheumatoid ArthritisOth er specified counselingTh erapeutic Drug MonitoringMy algia and myositis, unspecified 3 Yfn Tran. [facility] [address], [place], [address], [place]. tel:[phone] Referring Provider: Marc Isaac, [facility] [address], [place], [address]. tel:[phone] Office/Outpa tient Visit, Est [facility] , [address], [place], [address], [place] tel:[phone] [facility] , Rheumatoid Arthritis (chief complaint) Rheumatoid ArthritisThe rapeutic Drug MonitoringMy algia and myositis, unspecifiedO ther specified counseling 2 Yfn Tran. [facility] [address], [place], [address], [place]. tel:[phone] Referring Provider: Marc Isaac, [facility] [address], [place], [address]. tel:[phone] Office/Outpa tient Visit, Est [facility] , [address], [place], [address], [place] tel:[phone] [facility] , Rheumatoid Arthritis (chief complaint) Rheumatoid ArthritisMya lgia and myositis, unspecifiedT herapeutic Drug MonitoringOt her specified counseling 2 Yfn Tran. [facility] [address], [place], [address], [place]. tel:[phone] Referring Provider: Hien Nieves, [facility] [address], [place], [address]. tel:[phone] Family History Family Member Type Diagnosis Age At Onset sister Problem (finding) Systemic lupus erythema tosis uncle Problem (finding) rheumatoid arthritis Immunizations Vaccine Date Status Comments COVID-19 Pfizer administered Note: 2020 ; Source: Other Provider Payers Payer name Insurance type Covered green party ID Authorvidal viramontes(s) Medicare MB [id number] [facility] [id number] Social History Type Description Quantity Date Captured Comments Alcohol Use Details Unknown Caffeine Use Details Unknown Tobacco Use Status No Information Smoking Status No Information Sex Female Chief Complaint And Reason For Visit No Information Reason For Referral Reason For Referral No Information Plan Of Treatment Date Type Action Status Appointment Sheri Brownlee BOOKED Appointment Sheri Brownlee IV After NG KED Appointment Sheri Brownlee HB Before RAHUL OKED Appointment Sheri Brownlee BOOKED History Of Present Illness Encounter Date Complaint History Of Prese nt Illness Rheumatoid arthritis Rheumatoid arthritis Rheumatoid arthritis Rheumatoid arthritis Rheumatoid arthritis Rheumatoid arthritis Rheumatoid arthritis Rheumatoid arthritis Rheumatoid arthritis Rheumatoid arthritis Rheumatoid arthritis Rheumatoid arthritis Rheumatoid arthritis Rheumatoid arthritis Rheumatoid arthritis Rheumatoid arthritis Rheumatoid arthritis Rheumatoid arthritis Rheumatoid arthritis Rheumatoid arthritis Rheumatoid arthritis Rheumatoid arthritis Rheumatoid arthritis Rheumatoid arthritis Rheumatoid arthritis Rheumatoid arthritis Rheumatoid arthritis Rheumatoid arthritis Functional Status Date Functional Assessmen t No Information Instructions Date Instruction Additional Infor mation No Information Assessments Type Assessment Date No Information Patient Care Teams Name Effective Dates (start - stop) Status Members No Information
--- OUTSIDE RECORDS SUMMARY | 2023-02-06 17:12 | XMS_ITS | Continuity of Care Document ---
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 Role Phone Gaye Caal MD Unavailable Unavailable Allergies, Adverse Reactions, Alerts Substance Reaction Status Criticality Penicillins Active No Information Medications Medication Instructions Dosage Effective Dates (start - stop) Status Comments REMICADE (unknown strength) Not Available - Active ESTRADIOL (unknown strength) Not Available - Active AMITRIPTYLINE HCL (unknown strength) Not Available - Active CELEBREX (unknown strength) Not Available - Active PREMARIN (unknown strength) Not Available - Active CYMBALTA (unknown strength) Not Available - Active FUROSEMIDE (unknown strength) Not Available - Active KLOR-CON 10 (unknown strength) Not Available - Active HYDROCODONE-ACETAMINOPHE N (unknown strength) Not Available - Active LYRICA (unknown strength) Not Available - Active ZOCOR (unknown strength) Not Available - A ctive TRIAMTERENE-HYDROCHLOROT HIAZID (unknown strength) Not Available - Active PREDNISONE (unknown strength) Not Available - Active LISINOPRIL (unknown strength) Not Available - Active XATMEP (unknown strength) Not Available - Active SULFADIAZINE (unknown strength) Not Available - Active AMBIEN (unknown strength) Not Available - Active FOLIC ACID (unknown strength) Not Available - Active CYCLOBENZAPRINE HCL (unknown strength) Not Available - Active DULOXETINE HCL (unknown strength) Not Available - Active JAGDISH ALLERGY (unknown strength) Not Available - Active FLUOXETINE HCL (unknown strength) Not Available - Active GABAPENTIN (unknown strength) Not Available - Active PRILOSEC (unknown strength) Not Available - Active VITAMIN C (unknown strength) Not Available - Active VITAMIN D3 (unknown strength) Not Available - Active OCUVITE EYE HEALTH (unknown strength) Not Available - Active VITAMIN A (unknown strength) Not Available - Active Procedures Procedure Date Office/Outpatient Visit,Est, Mod 2022 X-Ray Exam Lower Spine 2-3 Views 2022 Office/Outpatient Visit,Est, Mod 2021 X-Ray Exam Lower Spine 2-3 Views 2021 Postop Followup Visit X-Ray Exam Lower Spine 2-3 Views 2021 Postop Followup Visit X-Ray Exam Lower Spine 2-3 Views 2021 TLIF - Includes PSF at the same level - PA TLIF - Additional Level(s) Includes PSF at the same level - PA MELGOZA FACETC/FRMT ARTHRD LUM 1 MELGOZA FACTC/FRMT ARTHRD LUM EA Posterior Instrumentation, 3-6 Segments - PA PEEK/ Cage/ Implant, For Interbody Fusio n - PA TLIF - Includes PSF at the same level Ap TLIF - Additional Level(s) Includes PSF at the same level MELGOZA FACETC/FRMT ARTHRD LUM 1 MELGOZA FACTC/FRMT ARTHRD LUM EA Posterior Instrumentation, 3-6 Segments PEEK/ Cage/ Implant, For Interbody Fusio n Office/Outpatient Visit,New, Mod 2021 Advance Directives Directive Yes / No Effective Date File Name No Information Encounters Encounter Description Practice Location Reason(s) For Visit Diagnoses Date Provider Providers Copied on Encounter Office/Outpat ient Visit,Est, Mod [facility], [address], [place], [id number], [place] tel:[phone] [facility] Encounter for other specified surgical aftercare 3 Afua Huizar. [facility], [address], [place], [id number] , [place]. tel:[phone] Referring Provider: Orlin Gudino [address], [address]. tel:[phone] Office/Outpat ient Visit,Est, Mod [facility], [address], [facility] [place], [id number], [place] tel:[phone] [facility] Encounter for other specified surgical aftercare Oct- 0202 2 Mehbod Amir. [facility], [address] [place] [address] [address], [place], [place], [id number] , [place]. [phone] Referring Provider: rOlin Gudino [address], [address]. tel:[phone] [facility], [address], [facility] [place] [id number], [place] tel:[phone] [facility] Encounter for other specified surgical aftercare 2 Mehbod Amir. [facility], [address] [place] [address], [place], [place], [id number] , [place]. [phone] Referring Provider: Orlin Gudino [address], [address]. tel:[phone] [facility], [address], [facility] [place], [id number], [place] tel:[phone] [facility] Encounter for other specified surgical aftercare 2 Mehbod Amir. [facility], [address] [place] [address], [place], [place], [id number] , [place]. tel:[phone] Referring Provider: Orlin Gudino [address], [address]. tel:[phone] [facility], [address], [facility] [place], [id number], [place] tel:[phone] [facility] No Information Apr- 2 Irma Chow. [address] [place] [address], [facility] [place], [place], [id number] , [place]. tel:[phone] Referring Provider: Orlin Gudino [address], [address]. tel:[phone] [facility], [address], [place], [place], [id number], tel:[phone] [facility] No Information 2 Mehbod Amir. [facility], [address] [place] [address] [address], [place], [place], [id number] , [place]. [phone] Referring Provider: Orlin Gudino [address], [address]. tel:[phone] Office/Outpat ient Visit,[facility], [address], [place], [place], [id number], [place] tel:[phone] [facility] Spinal stenosis, lumbar region with neurogenic claudicationS pondylolisthe sis, lumbar region Fe 2 Mehbod Amir. [facility], [address], [place], [place], [id number] , . tel:[phone] Referring Provider: Orlin Gudino [address], [address]. tel:[phone] Family History Family Member Type Diagnosis Age At Onset No Information Payers Payer name Insurance type Covered alliance party ID Samy viramontes(s) Medicare MB [id number] [facility] [address] [facility] [id number] Social History Type Description Quantity Date Captured Comments Alcohol Use Details Unknown Caffeine Use Details Unknown Tobacco Use Status No Information Smoking Status No Information Sex Female Vital Signs Date / Time: Height Weight BMI Pulse Rate Blood Pressure Temperature Respiratory Rate Body Surface Area Head Circumference Head Circ. Percentile Wt./Kane. Percentile BMI percentile Pulse Ox Inhaled Ox 9:04 AM 64.50 in 88.451 kg (195.00 lbs) 32.9 5 kg/m eter (2) Chief Complaint And Reason For Visit No Information Reason For Referral Reason For Referral No Information History Of Present Illness Encounter Date Complaint History Of Prese nt Illness No Information Functional Status Date Functional Assessmen t No Information Instructions Date Instruction Additional Infor mation No Information Assessments Type Assessment Date No Information Patient Care Teams Name Effective Dates (start - stop) Status Members No Information
--- NOTE | 2023-02-06 17:30 | CRLHL7_ITS ---
For Patients: As a result of the Cures Act, medical imaging exams and procedure reports are released immediately into your electronic medical record. You may view this report before your referring provider. If you have questions, please contact your health care provider. HISTORY: Left buttock pain. TECHNIQUE: Routine pelvis and left hip protocol. FINDINGS: Bones and soft tissues: Metallic artifact is seen in the lower lumbar spine and right hip region. No abnormality of bone marrow signal intensity is seen throughout the left hemipelvis or left proximal femur to suggest fracture, tumor or avascular necrosis. There is mild edema in the distal left gluteus medius muscle and tendon region which could represent contusion, strain or tendinosis. No tearing of the tendon is noted. For example see images 19-21 of series 12. The hamstring origins are intact. No findings for trochanteric bursitis. Left hip joint: Mild articular cartilage thinning is noted. No joint effusion, erosion or loose body is noted. No labral tearing is evident. Femoral head morphology is within normal limits. Intrapelvic soft tissues: Diverticulosis of the left colon is noted. The uterus is absent. IMPRESSION: 1. Mild edema in the distal left gluteus medius muscle and tendon could represent contusion, strain or tendinosis. No tendon disruption is noted. 2. Mild articular cartilage loss of the left hip joint. Dictated by Leo Case MD @ 02/07/2023 11:31:33 AM (Electronically Signed)
== END 2023-02-06 17:10 | disposition home or self-care (01) ==
LOC: MRI 17:10
PROVIDERS: PCP Family Medicine; Visit Provider Family Medicine
DX: M79.18 Myalgia, other site (principal)
CPT/HCPCS: 73721

== ENCOUNTER 2023-03-15 15:04 | Outpatient (CLI) | payer MEDICARE, BC, SELFPAY ==
--- OUTSIDE RECORDS SUMMARY | 2023-03-15 15:06 | XMS_ITS | Continuity of Care Document ---
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 [facility], [address], [place], [id number] , [place]. tel:[phone] Referring Provider: Orlin Gudino [address], [address]. tel:[phone] Office/Outpat ient Visit,Est, Mod [facility], [address], [facility] [place], [id number], [place] tel:[phone] [facility] Encounter for other specified surgical aftercare Oct- 0202 2 Mehbod Amir. [facility] [place], [address] [place] [address], [place], [place], [id number] , [place]. [phone] Referring Provider: Orlin Gudino [address], [address]. tel:[phone] [facility], [address], [facility] [place], [id number], [place] tel:[phone] [facility] Encounter for other specified surgical aftercare 2 Mehbod Amir. [facility] [place], [address] [place] [address], [place], [place], [id number] , [place]. [phone] Referring Provider: Orlin Gudino [address], [address]. tel:[phone] [facility], [address], [facility] [place], [id number], [place] tel:[phone] [facility] Encounter for other specified surgical aftercare 2 Mehbod Amir. [facility] [place], [address] [place] [address], [place], [place], [id number] , [place]. tel:[phone] Referring Provider: Orlin Gudino [address], [address]. tel:[phone] [facility], [address], [facility] [place], [id number], [place] tel:[phone] [facility] No Information Apr- 2 Irma Chow. [address] [place] [address], [facility] [place], [place], [id number] , [place]. tel:[phone] Referring Provider: Orlin Gudino [address], [address]. tel:[phone] [facility], [address], [place], [place], [id number], tel:[phone] [facility] No Information 2 Mehbod Amir. [facility], [address] [place] [address] [address], [place], [place], [id number] , [place]. [phone] Referring Provider: Orlin Gudino [address], [address]. tel:[phone] Office/Outpat ient Visit,[facility], [facility], [address], [place], [place], [id number], [place] tel:[phone] [facility] Spinal stenosis, lumbar region with neurogenic claudicationS pondylolisthe sis, lumbar region Fe 2 Mehbod Amir. [facility] [place], [address], [place], [place], [address] , . tel:[phone] Referring Provider: Orlin Gudino [address], [address]. tel:[phone] Family History Family Member Type Diagnosis Age At Onset No Information Payers Payer name Insurance type Covered republican ID Samy viramontes(s) Medicare MB [id number] [facility] [id number] [facility] [id number] Social History Type Description Quantity Date Captured [...]
--- OUTSIDE RECORDS SUMMARY | 2023-03-15 15:07 | XMS_ITS | Continuity of Care Document ---
Author Name Unknown Organization [facility] Address [address] [place] [address] Phone Care Team Providers Care Drafter Structural Name Role Phone Marc Coulter MD Unavailable [...] A 10,000 unit Cap take 1 capsule ([id number]) by oral route every day 41765 UNITS - Active vitamin E 400 unit [...] [facility] , [address], [place], [address], [place] tel:[phone] [facility] , No Information 3 Yfn Tran. [facility] [address], [place], [address], [place]. tel:[phone] [facility] , [address], [place], [address], [place] tel:[phone] [facility] , No Information 3 Grant Deb. [address], [address], [place], [address], [place]. tel:[phone] Referring Provider: Deb Grant, [address], [place], [address]. tel:[phone] [facility] , [address], [place], [address], [place] tel:[phone] [facility] , No Information 3 Yfn Tran. [facility] [address], [place], [address], [place]. tel:[phone] Referring Provider: Marc Isaac, [facility] [address], [place], [address]. tel:[phone] [facility] , [address], [place], [address], [place] tel:[phone] [facility] , No Information 3 Yfn Tran. [facility] [address], [place], [address], [place]. tel:[phone] Referring Provider: Marc Isaac, [facility] [address], [place], [address]. tel:[phone] [facility] , [address], [place], [address], [place] tel:[phone] [facility] , No Information 3 Yfn Tran. [facility] [address], [place], [address], [place]. tel:[phone] Referring Provider: Marc Isaac, [facility] [address], [place], [address]. tel:[phone] Office/Outpa tient Visit, Est [facility] , [address], [place], [address], [place] tel:[phone] [facility] , Rheumatoid arthritis (chief complaint) Seronegative RAPolyosteoa rthritis, unspecifiedS icca syndrome, unspecifiedE levated liver enzymesNorthwest Medical Centere healthCocrownpoint health care facilitye lingHigh risk medication monitoring 3 Yfn Tran. [facility] [address], [place], [address], [place]. tel:[phone] Referring Provider: Marc Isaac, [facility] [address], [place], [address]. tel:[phone] [facility] , [address], [place], [address], [place] tel:[phone] [facility] , No Information 3 Yfn Tran. [facility] [address], [place], [address], [place]. tel:[phone] Referring Provider: Marc Isaac, [facility] [address], [place], [address]. tel:[phone] [facility] , [address], [place], [address], [place] tel:[phone] [facility] , No Information 0 3 Yfn Marc. [facility] [address], [place], [address], [place]. tel:[phone] Referring Provider: Marc Isaac, [facility] [address], [place], [address]. tel:[phone] [facility] , [address], [place], [address], [place] tel:[phone] [facility] , No Information 0 3 Yfn Palmerad. [facility] [address], [place], [address], [place]. tel:[phone] [facility] , [address], [place], [address], [place] tel:[phone] [facility] , No Information 3 Yfn Marc. [facility] [address], [place], [address], [place]. tel:[phone] Referring Provider: Marc Isaac, [facility] [address], [place], [address]. tel:[phone] [facility] , [address], [place], [address], [place] tel:[phone] [facility] , No Information 2 Gary Miranda. [facility] [address], [place], [address], [place]. tel:[phone] Referring Provider: Ruben Isaac, [facility] [address], [place], [address]. tel:[phone] Office/Outpa tient Visit, Est [facility] , [address], [place], [address], [place] tel:[phone] [facility] , Rheumatoid arthritis (chief complaint) Seronegative RAPolyosteoa rthritis, unspecifiedS icca syndrome, unspecifiedE levated liver enzymesNorthwest Medical Centere Formerly [facility] HospitalHigh risk medication monitoring 2 Yfn Tran. [facility] [address], [place], [address], [place]. tel:[phone] Referring Provider: Marc Isaac, [facility] [address], [place], [address]. tel:[phone] [facility] , [address], [place], [address], [place] tel:[phone] [facility] , No Information 2 Tucker Fernando. [facility] [address], [place], [address], [place]. tel:[phone] Referring Provider: Abdullahi Loza, [facility] [address], [place], [address]. tel:[phone] Office/Outpa tient Visit, Est [facility] , [address], [place], [address], [place] tel:[phone] [facility] , Rheumatoid arthritis (chief complaint) Seronegative RAPolyosteoa rthritis, unspecifiedS icca syndrome, unspecifiedE levated liver enzymesNorthwest Medical Centere Formerly [facility] HospitalHigh risk medication monitoring 2 Yfn Tran. [facility] [address], [place], [address], [place]. tel:[phone] Referring Provider: Marc Isaac, [facility] [address], [place], [address]. tel:[phone] [facility] , [address], [place], [address], [place] tel:[phone] [facility] , No Information 2 Gary Miranda. [facility] [address], [place], [address], [place]. tel:[phone] Referring Provider: Ruben Isaac, [facility] [address], [place], [address]. tel:[phone] [facility] , [address], [place], [address], [place] tel:[phone] [facility] , No Information 2 Yfn Tran. [facility] [address], [place], [address], [place]. tel:[phone] Referring Provider: Marc Isaac, [facility] [address], [place], [address]. tel:[phone] [facility] , [address], [place], [address], [place] tel:[phone] [facility] , No Information 2 Yfn Marc. [facility] [address], [place], [address], [place]. tel:[phone] Referring Provider: Marc Isaac, [facility] [address], [place], [address]. tel:[phone] [facility] , [address], [place], [address], [place] tel:[phone] [facility] , No Information 2 Yfn Tran. [facility] [address], [place], [address], [place]. tel:[phone] Referring Provider: Marc Isaac, [facility] [address], [place], [address]. tel:[phone] [facility] , [address], [place], [address], [place] tel:[phone] [facility] , No Information 1 Gary Morrisonibald. [facility] [address], [place], [address], [place]. tel:[phone] Referring Provider: Ruben Vega A, [facility] [address], [place], [address]. tel:[phone] Office/Outpa tient Visit, Est [facility] , [address], [place], [address], [place] tel:[phone] [facility] , Rheumatoid arthritis (chief complaint) Seronegative RAPolyosteoa rthritis, unspecifiedS icca syndrome, unspecifiedE levated liver enzymesNorthwest Medical Centere Formerly [facility] HospitalHigh risk medication monitoring 1 Yfn Tran. [facility] [address], [place], [address], [place]. tel:[phone] Referring Provider: Marc Isaac, [facility] [address], [place], [address]. tel:[phone] [facility] , [address], [place], [address], [place] tel:[phone] [facility] , No Information 1 Yfn Tran. [facility] [address], [place], [address], [place]. tel:[phone] Referring Provider: Marc Isaac, [facility] [address], [place], [address]. tel:[phone] [facility] , [address], [place], [address], [place] tel:[phone] [facility] , No Information 1 Yfn Tran. [facility] [address], [place], [address], [place]. tel:[phone] Referring Provider: Marc Isaac, [facility] [address], [place], [address]. tel:[phone] [facility] , [address], [place], [address], [place] tel:[phone] [facility] , No Information 1 Yfn Tran. [facility] [address], [place], [address], [place]. tel:[phone] Referring Provider: Marc Isaac, [facility] [address], [place], [address]. tel:[phone] Office/Outpa tient Visit, Est [facility] , [address], [place], [address], [place] tel:[phone] [facility] , Rheumatoid arthritis (chief complaint) Seronegative RAPolyosteoa rthritis, unspecifiedS icca syndrome, unspecifiedE levated liver enzymesNorthwest Medical Centere [facility]ere lingHigh risk medication monitoring 1 Yfn Tran. [facility] [address], [place], [address], [place]. tel:[phone] Referring Provider: Marc Isaac, [facility] [address], [place], [address]. tel:[phone] [facility] , [address], [place], [address], [place] tel:[phone] [facility] , No Information 1 Yfn Tran. [facility] [address], [place], [address], [place]. tel:[phone] Referring Provider: Marc Isaac, [facility] [address], [place], [address]. tel:[phone] [facility] , [address], [place], [address], [place] tel:[phone] [facility] , No Information 1 Yfn Tran. [facility] [address], [place], [address], [place]. tel:[phone] Referring Provider: Marc Isaac, [facility] [address], [place], [address]. tel:[phone] [facility] , [address], [place], [address], [place] tel:[phone] [facility] , No Information 1 Yfn Tran. [facility] [address], [place], [address], [place]. tel:[phone] Referring Provider: Marc Isaac, [facility] [address], [place], [address]. tel:[phone] [facility] , [address], [place], [address], [place] tel:[phone] [facility] , No Information 1 Yfn Tran. [facility] [address], [place], [address], [place]. tel:[phone] Referring Provider: Marc Isaac, [facility] [address], [place], [address]. tel:[phone] Office/Outpa tient Visit, Est [facility] , [address], [place], [address], [place] tel:[phone] [facility] , Rheumatoid arthritis (chief complaint) Seronegative RAPolyosteoa rthritis, unspecifiedS icca syndrome, unspecifiedE levated liver enzymesNorthwest Medical Centere [facility]ere lingThomas [facility] Hospital risk medication monitoringFa tigue 1 Yfn Tran. [facility] [address], [place], [address], [place]. tel:[phone] Referring Provider: Marc Isaac, [facility] [address], [place], [address]. tel:[phone] [facility] , [address], [place], [address], [place] tel:[phone] [facility] , No Information 1 Yfn Tran. [facility] [address], [place], [address], [place]. tel:[phone] Referring Provider: Marc Isaac, [facility] [address], [place], [address]. tel:[phone] [facility] , [address], [place], [address], [place] tel:[phone] [facility] , No Information 1 Yfn Tran. [facility] [address], [place], [address], [place]. tel:[phone] Referring Provider: Marc Isaac, [facility] [address], [place], [address]. tel:[phone] Office/Outpa tient Visit, Est [facility] , [address], [place], [address], [place] tel:[phone] [facility] , Rheumatoid arthritis (chief complaint) Seronegative RAPolyosteoa rthritis, unspecifiedS icca syndrome, unspecifiedE levated liver enzymesNorthwest Medical Centere [facility] risk medication monitoring 1 Yfn Tran. [facility] [address], [place], [address], [place]. tel:[phone] Referring Provider: Marc Isaac, [facility] [address], [place], [address]. tel:[phone] [facility] , [address], [place], [address], [place] tel:[phone] [facility] , No Information 1 Yfn Tran. [facility] [address], [place], [address], [place]. tel:[phone] Referring Provider: Marc Isaac, [facility] [address], [place], [address]. tel:[phone] [facility] , [address], [place], [address], [place] tel:[phone] [facility] , No Information 0 Td Gonzalez. [facility] [address], [place], [address], [place]. tel:[phone] Referring Provider: Lisa Price, [facility] [address], [place], [address]. tel:[phone] [facility] , [address], [place], [address], [place] tel:[phone] [facility] , No Information 0 Yfn Tran. [facility] [address], [place], [address], [place]. tel:[phone] Referring Provider: Marc Isaac, [facility] [address], [place], [address]. tel:[phone] Office/Outpa tient Visit, Est [facility] , [address], [place], [address], [place] tel:[phone] Telehealth Rheumatoid arthritis (chief complaint) CounselingSe ronegative RAPolyosteoa rthritis, unspecifiedS icca syndrome, unspecifiedE levated liver enzymesBone [facility] risk medication monitoring 0 Yfn Tran. [facility] [address], [place], [address], [place]. tel:[phone] Referring Provider: Marc Isaac, [facility] [address], [place], [address]. tel:[phone] [facility] , [address], [place], [address], [place] tel:[phone] [facility] , No Information 0 Yfn Tran. [facility] [address], [place], [address], [place]. tel:[phone] Referring Provider: Marc Isaac, [facility] [address], [place], [address]. tel:[phone] Office/Outpa tient Visit, Est [facility] , [address], [place], [address], [place] tel:[phone] [facility] , Rheumatoid arthritis (chief complaint) Seronegative RAPolyosteoa rthritis, unspecifiedS icca syndrome, unspecifiedE levated liver enzymesBone [facility] risk medication monitoringLo w back painCounseli ng 0 Yfn Tran. [facility] [address], [place], [address], [place]. tel:[phone] Referring Provider: Marc Isaac, [facility] [address], [place], [address]. tel:[phone] [facility] , [address], [place], [address], [place] tel:[phone] [facility] , No Information 0 Yfn Tran. [facility] [address], [place], [address], [place]. tel:[phone] Referring Provider: Marc Isaac, [facility] [address], [place], [address]. tel:[phone] [facility] , [address], [place], [address], [place] tel:[phone] [facility] , No Information 0 Yfn Tran. [facility] [address], [place], [address], [place]. tel:[phone] Referring Provider: Marc Isaac, [facility] [address], [place], [address]. tel:[phone] [facility] , [address], [place], [address], [place] tel:[phone] [facility] , No Information 0 Yfn Tran. [facility] [address], [place], [address], [place]. tel:[phone] Referring Provider: Marc Isaac, [facility] [address], [place], [address]. tel:[phone] Office/Outpa tient Visit, Est [facility] , [address], [place], [address], [place] tel:[phone] [facility] , Rheumatoid arthritis (chief complaint) Seronegative RAPolyosteoa rthritis, unspecifiedS icca syndrome, unspecifiedE levated liver enzymesBone healthHigh risk medication monitoringLo w back pain 0 Yfn Tran. [facility] [address], [place], [address], [place]. tel:[phone] Referring Provider: Marc Isaac, [facility] [address], [place], [address]. tel:[phone] [facility] , [address], [place], [address], [place] tel:[phone] [facility] , No Information 0 Yfn Tran. [facility] [address], [place], [address], [place]. tel:[phone] Referring Provider: Marc Isaac, [facility] [address], [place], [address]. tel:[phone] [facility] , [address], [place], [address], [place] tel:[phone] [facility] , No Information 0 Yfn Tran. [facility] [address], [place], [address], [place]. tel:[phone] Referring Provider: Marc Isaac, [facility] [address], [place], [address]. tel:[phone] Office/Outpa tient Visit, Est [facility] , [address], [place], [address], [place] tel:[phone] [facility] , Rheumatoid arthritis (chief complaint) Seronegative RAPolyosteoa rthritis, unspecifiedS icca syndrome, unspecifiedE levated liver enzymesBone [facility] risk medication monitoring 0 Yfn Tran. [facility] [address], [place], [address], [place]. tel:[phone] Referring Provider: Marc Isaac, [facility] [address], [place], [address]. tel:[phone] [facility] , [address], [place], [address], [place] tel:[phone] [facility] , No Information 9 Yfn Tran. [facility] [address], [place], [address], [place]. tel:[phone] Referring Provider: Marc Isaac, [facility] [address], [place], [address]. tel:[phone] Office/Outpa tient Visit, Est [facility] , [address], [place], [address], [place] tel:[phone] [facility] , Rheumatoid arthritis (chief complaint) Seronegative RAPolyosteoa rthritis, unspecifiedS icca syndrome, unspecifiedE levated liver enzymesBone healthThomas Memorial Hospital risk medication monitoring Yfn Tran. [facility] [address], [place], [address], [place]. tel:[phone] Referring Provider: Marc Isaac, [facility] [address], [place], [address]. tel:[phone] [facility] , [address], [place], [address], [place] tel:[phone] [facility] , No Information Yfn Tran. [facility] [facility] [address], [place], [address], [place]. tel:[phone] Referring Provider: Marc Isaac, [facility] [address], [place], [address]. tel:[phone] [facility] , [address], [place], [address], [place] tel:[phone] [facility] , No Information Yfn Tran. [facility] [address], [place], [address], [place]. tel:[phone] Referring Provider: Marc Isaac, [facility] [address], [place], [address]. tel:[phone] Office/Outpa tient Visit, Est [facility] , [address], [place], [address], [place] tel:[phone] [facility] , Rheumatoid arthritis (chief complaint) Seronegative RAPolyosteoa rthritis, unspecifiedS icca syndrome, unspecifiedE levated liver enzymesBone healthHigh risk medication monitoring Yfn Tran. [facility] [address], [place], [address], [place]. tel:[phone] Referring Provider: Marc Isaac, [facility] [address], [place], [address]. tel:[phone] [facility] , [address], [place], [address], [place] tel:[phone] [facility] , No Information Gary Miranda. [facility] [address], [place], [address], [place]. tel:[phone] Referring Provider: Ruben Isaac, [facility] [address], [place], [address]. tel:[phone] [facility] , [address], [place], [address], [place] tel:[phone] [facility] , No Information Yfn Tran. [facility] [address], [place], [address], [place]. tel:[phone] Referring Provider: Marc Isaac, [facility] [address], [place], [address]. tel:[phone] Office/Outpa tient Visit, Est [facility] , [address], [place], [address], [place] tel:[phone] [facility] , Rheumatoid arthritis (chief complaint) Seronegative RAPolyosteoa rthritis, unspecifiedS icca syndrome, unspecifiedE levated liver enzymesBone healthHigh risk medication monitoringTe ndinitis Yfn Tran. [facility] [address], [place], [address], [place]. tel:[phone] Referring Provider: Marc Isaac, [facility] [address], [place], [address]. tel:[phone] [facility] , [address], [place], [address], [place] tel:[phone] [facility] , No Information 9 Sharlene Russell. [facility] [address], [place], [address], [place]. tel:[phone] Referring Provider: Drew Hdez, [facility] [address], [place], [address]. tel:[phone] Office/Outpa tient Visit, Est [facility] , [address], [place], [address], [place] tel:[phone] [facility] , Rheumatoid arthritis (chief complaint) Seronegative RAPolyosteoa rthritis, unspecifiedS icca syndrome, unspecifiedE levated liver enzymesBone healthHigh risk medication monitoring 8 Yfn Tran. [facility] [address], [place], [address], [place]. tel:[phone] Referring Provider: Marc Isaac, [facility] [address], [place], [address]. tel:[phone] [facility] , [address], [place], [address], [place] tel:[phone] [facility] , No Information Yfn Tran. [facility] [address], [place], [address], [place]. tel:[phone] Referring Provider: Marc Isaac, [facility] [address], [place], [address]. tel:[phone] Office/Outpa tient Visit, Est [facility] , [address], [place], [address], [place] tel:[phone] [facility] , Rheumatoid arthritis (chief complaint) Seronegative RAPolyosteoa rthritis, unspecifiedS icca syndrome, unspecifiedE levated liver enzymesBone [facility] risk medication monitoring Yfn Tran. [facility] [address], [place], [address], [place]. tel:[phone] Referring Provider: Marc Isaac, [facility] [address], [place], [address]. tel:[phone] [facility] , [address], [place], [address], [place] tel:[phone] [facility] , Seronegative RA Gary Miranda. [facility] [address], [place], [address], [place]. tel:[phone] Referring Provider: Ruben Isaac, [facility] [address], [place], [address]. tel:[phone] Office/Outpa tient Visit, Est [facility] , [address], [place], [address], [place] tel:[phone] [facility] , Rheumatoid arthritis (chief complaint) Seronegative RAPolyosteoa rthritis, unspecifiedS icca syndrome, unspecifiedE levated liver enzymesBone healthHigh risk medication monitoring 8 Yfn Tran. [facility] [address], [place], [address], [place]. tel:[phone] Referring Provider: Marc Isaac, [facility] [address], [place], [address]. tel:[phone] [facility] , [address], [place], [address], [place] tel:[phone] [facility] , Seronegative RA Oct- 8 Yfn Tran. [facility] [address], [place], [address], [place]. tel:[phone] Referring Provider: Marc Isaac, [facility] [address], [place], [address]. tel:[phone] Office/Outpa tient Visit, Est [facility] , [address], [place], [address], [place] tel:[phone] [facility] , Rheumatoid arthritis (chief complaint) Seronegative RAPolyosteoa rthritis, unspecifiedS icca syndrome, unspecifiedE levated liver enzymesBone healthHigh risk medication monitoring 8 Yfn Tran. [facility] [address], [place], [address], [place]. tel:[phone] Referring Provider: Marc Isaac, [facility] [address], [place], [address]. tel:[phone] [facility] , [address], [place], [address], [place] tel:[phone] [facility] , Seronegative RA Aug- [facility] Marc. [facility] [address], [place], [address], [place]. tel:[phone] Referring Provider: Marc Isaac, [facility] [address], [place], [address]. tel:[phone] [facility] , [address], [place], [address], [place] tel:[phone] [facility] , Seronegative RA [facility] Marc. [facility] [address], [place], [address], [place]. tel:[phone] Referring Provider: Marc Isaac, [facility] [address], [place], [address]. tel:[phone] [facility] , [address], [place], [address], [place] tel:[phone] [facility] , Seronegative RA 7 [facility] Marc. [facility] [address], [place], [address], [place]. tel:[phone] Referring Provider: Marc Isaac, [facility] [address], [place], [address]. tel:[phone] Office/Outpa tient Visit, Est [facility] , [address], [place], [address], [place] tel:[phone] [facility] , Rheumatoid arthritis (chief complaint) Seronegative RAPolyosteoa rthritis, unspecifiedS icca syndrome, unspecifiedE levated liver enzymesBone healthHigh risk medication monitoring 7 Yfn Tran. [facility] [address], [place], [address], [place]. tel:[phone] Referring Provider: Marc Isaac, [facility] [address], [place], [address]. tel:[phone] Office/Outpa tient Visit, Est [facility] , [address], [place], [address], [place] tel:[phone] [facility] , Rheumatoid arthritis (chief complaint) Seronegative RAPolyosteoa rthritis, unspecifiedS icca syndrome, unspecifiedE levated liver enzymesBone healthHigh risk medication monitoring Yfn Tran. [facility] [address], [place], [address], [place]. tel:[phone] Referring Provider: Marc Isaac, [facility] [address], [place], [address]. tel:[phone] [facility] , [address], [place], [address], [place] tel:[phone] [facility] , No Information Yfn Tran. [facility] [address], [place], [address], [place]. tel:[phone] Referring Provider: Marc Isaac, [facility] [address], [place], [address]. tel:[phone] [facility] , [address], [place], [address], [place] tel:[phone] [facility] , Seronegative RA Sharlene Russell. [facility] [address], [place], [address], [place]. tel:[phone] Referring Provider: Drew Hdez, [facility] [address], [place], [address]. tel:[phone] Office/Outpa tient Visit, Est [facility] , [address], [place], [address], [place] tel:[phone] [facility] , Rheumatoid arthritis (chief complaint) Seronegative RAPolyosteoa rthritis, unspecifiedS icca syndrome, unspecifiedB one healthHigh risk medication monitoringEl evated liver enzymes Yfn Tran. [facility] [address], [place], [address], [place]. tel:[phone] Referring Provider: Marc Isaac, [facility] [address], [place], [address]. tel:[phone] [facility] , [address], [place], [address], [place] tel:[phone] [facility] , No Information Yfn Tran. [facility] [address], [place], [address], [place]. tel:[phone] Referring Provider: Marc Isaac, [facility] [address], [place], [address]. tel:[phone] [facility] , [address], [place], [address], [place] tel:[phone] [facility] , Seronegative RA [facility] Marc. [facility] [address], [place], [address], [place]. tel:[phone] Referring Provider: Marc Isaac, [facility] [address], [place], [address]. tel:[phone] [facility] , [address], [place], [address], [place] tel:[phone] [facility] , No Information Yfn Tran. [facility] [address], [place], [address], [place]. tel:[phone] Referring Provider: Marc Isaac, [facility] [address], [place], [address]. tel:[phone] Office/Outpa tient Visit, Est [facility] , [address], [place], [address], [place] tel:[phone] [facility] , Rheumatoid arthritis (chief complaint) Seronegative RAPolyosteoa rthritis, unspecifiedS icca syndrome, unspecifiedB one healthHigh risk medication monitoring Yfngraciela Tran. [facility] [address], [place], [address], [place]. tel:[phone] Referring Provider: Marc Isaac, [facility] [address], [place], [address]. tel:[phone] [facility] , [address], [place], [address], [place] tel:[phone] [facility] , Seronegative RA [facility] Marc. [facility] [address], [place], [address], [place]. tel:[phone] Referring Provider: Marc Isaac, [facility] [address], [place], [address]. tel:[phone] [facility] , [address], [place], [address], [place] tel:[phone] [facility] , [facility]. [facility] [address], [place], [address], [place]. tel:[phone] Referring Provider: Marc Isaac, [facility] [address], [place], [address]. tel:[phone] [facility] , [address], [place], [address], [place] tel:[phone] [facility] , Seronegative RA 6 [facility] Marc. [facility] [address], [place], [address], [place]. tel:[phone] Referring Provider: Marc Isaac, [facility] [address], [place], [address]. tel:[phone] Office/Outpa tient Visit, Est [facility] , [address], [place], [address], [place] tel:[phone] [facility] , Rheumatoid arthritis (chief complaint) Seronegative RAPolyosteoa rthritis, unspecifiedS icca syndrome, unspecifiedH igh risk medication monitoringBo [facility] ed liver enzymes 0 6 Yfngraciela Tran. [facility] [address], [place], [address], [place]. tel:[phone] Referring Provider: Marc Isaac, [facility] [address], [place], [address]. 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 [facility] [address], [place], [address], [place]. tel:[phone] Referring Provider: Marc Isaac, [facility] [address], [place], [address]. tel:[phone] [facility] , [address], [place], [address], [place] tel:[phone] [facility] , Seronegative RA Mar-2 6 Yfn Tran. [facility] [address], [place], [address], [place]. tel:[phone] Referring Provider: Marc Isaac, [facility] [address], [place], [address]. tel:[phone] [facility] , [address], [place], [address], [place] tel:[phone] [facility] , No Information 6 Yfn Marc. [facility] [address], [place], [address], [place]. tel:[phone] Referring Provider: Marc Isaac, [facility] [address], [place], [address]. tel:[phone] Office/Outpa tient Visit, Est [facility] , [address], [place], [address], [place] tel:[phone] [facility] , Rheumatoid arthritis (chief complaint) Seronegative RAPolyosteoa rthritis, unspecifiedS icca syndrome, unspecifiedH igh risk medication monitoringBo [facility] 6 Yfn Marc. [facility] , [facility] [address], [place], [address], [place]. tel:[phone] Referring Provider: Marc Isaac, [facility] [address], [place], [address]. tel:[phone] Office/Outpa tient Visit, Est [facility] , [address], [place], [address], [place] tel:[phone] [facility] , Rheumatoid arthritis (chief complaint) Seronegative RAPolyosteoa rthritis, unspecifiedS icca syndrome, unspecifiedH igh risk medication monitoringBo [facility] 6 Yfn Marc. [facility] [address], [place], [address], [place]. tel:[phone] Referring Provider: Marc Isaac, [facility] [address], [place], [address]. tel:[phone] Office/Outpa tient Visit, Est [facility] , [address], [place], [address], [place] tel:[phone] [facility] , Rheumatoid arthritis (chief complaint) Seronegative RAPolyosteoa rthritis, unspecifiedS icca syndrome, unspecifiedH igh risk medication monitoringBo [facility] Yfn Tran. [facility] [address], [place], [address], [place]. tel:[phone] Referring Provider: Marc Isaac, [facility] [address], [place], [address]. tel:[phone] Office/Outpa tient Visit, Est [facility] , [address], [place], [address], [place] tel:[phone] [facility] , Rheumatoid arthritis (chief complaint) Sicca syndromeRheu matoid ArthritisThe rapeutic Drug MonitoringECU [facility] Yfn Tran. [facility] , [facility] [address], [place], [address], [place]. tel:[phone] Referring Provider: Marc Isaac, [facility] [address], [place], [address]. tel:[phone] Office/Outpa tient Visit, Est [facility] , [address], [place], [address], [place] tel:[phone] [facility] , Rheumatoid arthritis (chief complaint) Rheumatoid ArthritisThe rapeutic Drug MonitoringFormerly [facility], [facility] 5 Yfn Tran. [facility] [address], [place], [address], [place]. tel:[phone] Referring Provider: Marc Isaac, [facility] [address], [place], [address]. tel:[phone] Office/Outpa tient Visit, Est [facility] , [address], [place], [address], [place] tel:[phone] [facility] , Rheumatoid Arthritis (chief complaint) Rheumatoid ArthritisThe rapeutic Drug MonitoringOt her specified counseling 5 Yfn Tran. [facility] [address], [place], [address], [place]. tel:[phone] Referring Provider: Marc Isaac, [facility] [address], [place], [address]. tel:[phone] Office/Outpa tient Visit, Est [facility] , [address], [place], [address], [place] tel:[phone] [facility] , Rheumatoid Arthritis (chief complaint) Rheumatoid ArthritisOth er specified counselingTh erapeutic Drug Monitoring 4 Yfn Tran. [facility] [address], [place], [address], [place]. tel:[phone] Referring Provider: Marc Isaac, [facility] [address], [place], [address]. tel:[phone] Office/Outpa tient Visit, Est [facility] , [address], [place], [address], [place] tel:[phone] [facility] , Rheumatoid Arthritis (chief complaint) Rheumatoid ArthritisOth er specified counselingTh erapeutic Drug MonitoringDi [facility] Yfn Tran. [facility] , [facility] [address], [place], [address], [place]. tel:[phone] Referring Provider: Marc Isaac, [facility] [address], [place], [address]. tel:[phone] Office/Outpa tient Visit, Est [facility] , [address], [place], [address], [place] tel:[phone] [facility] , Rheumatoid Arthritis (chief complaint) Rheumatoid ArthritisOth er specified counselingTh erapeutic Drug MonitoringMy algia and myositis, unspecified 4 Yfn Tran. [facility] [address], [place], [address], [place]. tel:[phone] Referring Provider: Marc Isaac, [facility] [address], [place], [address]. tel:[phone] Office/Outpa tient Visit, Est [facility] , [address], [place], [address], [place] tel:[phone] [facility] , Rheumatoid Arthritis (chief complaint) Rheumatoid ArthritisOth er specified counselingTh erapeutic Drug Monitoring 3 Yfn Tran. [facility] [address], [place], [address], [place]. tel:[phone] Referring Provider: Marc Isaac, [facility] [address], [place], [address]. tel:[phone] [facility] , [address], [place], [address], [place] tel:[phone] [facility] , No Information 3 Yfn Tran. [facility] [address], [place], [address], [place]. tel:[phone] Referring Provider: Marc Isaac, [facility] [address], [place], [address]. tel:[phone] Office/Outpa tient Visit, Est [facility] , [address], [place], [address], [place] tel:[phone] [facility] , Rheumatoid Arthritis (chief complaint) Rheumatoid ArthritisThe rapeutic Drug MonitoringOt her specified counseling 3 Yfn Tran. [facility] [address], [place], [address], [place]. tel:[phone] Referring Provider: Marc Isaac, [facility] [address], [place], [address]. tel:[phone] [facility] , [address], [place], [address], [place] tel:[phone] [facility] , No Information 3 Yfn Marc. [facility] [address], [place], [address], [place]. tel:[phone] Referring Provider: Marc Isaac, [facility] [address], [place], [address]. tel:[phone] [facility] , [address], [place], [address], [place] tel:[phone] [facility] , No Information 3 Yfn Tran. [facility] [address], [place], [address], [place]. tel:[phone] Referring Provider: Marc Isaac, [facility] [address], [place], [address]. tel:[phone] Office/Outpa tient Visit, Est [facility] , [address], [place], [address], [place] tel:[phone] [facility] , Rheumatoid Arthritis (chief complaint) Rheumatoid ArthritisOth er specified counselingTh erapeutic Drug Monitoring 3 Yfn Tran. [facility] [address], [place], [address], [place]. tel:[phone] Referring Provider: Marc Isaac, [facility] [address], [place], [address]. tel:[phone] Office/Outpa tient Visit, Est [facility] , [address], [place], [address], [place] tel:[phone] [facility] , Rheumatoid Arthritis (chief complaint) Rheumatoid ArthritisThe rapeutic Drug MonitoringMy algia and myositis, unspecifiedO ther specified counseling 3 Yfn Tran. [facility] [address], [place], [address], [place]. tel:[phone] Referring Provider: Marc Isaac, [facility] [address], [place], [address]. tel:[phone] Office/Outpa tient Visit, Est [facility] , [address], [place], [address], [place] tel:[phone] [facility] , Rheumatoid Arthritis (chief complaint) Rheumatoid ArthritisOth er specified counselingTh erapeutic Drug MonitoringMy algia and myositis, unspecified 3 Yfn Tran. [facility] [address], [place], [address], [place]. tel:[phone] Referring Provider: Marc Isaac, [facility] [address], [place], [address]. tel:[phone] Office/Outpa tient Visit, Est [facility] , [address], [place], [address], [place] tel:[phone] [facility] , Rheumatoid Arthritis (chief complaint) Rheumatoid ArthritisThe rapeutic Drug MonitoringMy algia and myositis, unspecifiedO ther specified counseling 2 Yfn Tran. [facility] [address], [place], [address], [place]. tel:[phone] Referring Provider: Marc Isaac, [facility] [address], [place], [address]. tel:[phone] Office/Outpa tient Visit, Est [facility] , [address], [place], [address], [place] tel:[phone] [facility] , Rheumatoid Arthritis (chief complaint) Rheumatoid ArthritisMya lgia and myositis, unspecifiedT herapeutic Drug MonitoringOt her specified counseling 2 Yfn Tran. [facility] [address], [place], [address], [place]. tel:[phone] Referring Provider: Hien Nieves, [facility] [address] [facility], [place], [address]. tel:[phone] Family History Family Member Type Diagnosis Age At Onset sister Problem (finding) Systemic lupus erythema tosis uncle Problem (finding) rheumatoid arthritis Immunizations Vaccine Date Status Comments COVID-19 Pfizer administered Note: 2020 ; Source: Other Provider Payers Payer name Insurance type Covered republican ID Authoriza tion(s) Medicare MB [id number] [facility] [id number] Social History Type Description Quantity Date Captured Comments Alcohol Use Details Unknown Caffeine Use Details Unknown Tobacco Use Status No Information Smoking Status No Information Sex Female Chief Complaint And Reason For Visit No Information Reason For Referral Reason For Referral No Information Plan Of Treatment Date Type Action Status Appointment Sheri Brownlee IV After NG KED Appointment Sheri Brownlee HB Before RAHUL OKED Appointment Sheri Brownlee BOOKED Appointment Sheri Brownlee BOOKED History Of Present [...]
--- NOTE | 2023-03-15 15:30 | CRLHL7_ITS ---
For Patients: As a result of the Century Cures Act, medical imaging exams and procedure reports are released immediately into your electronic medical record. You may view this report before your referring provider. If you have questions, please contact your health care provider. Indication: Status post spinal fusion. Technique: Multisequence multiplanar MRI of the lumbar spine without contrast. Comparison: None available. Findings: Operative changes of posterior fusion from L3-L5. Minimal grade 1 anterolisthesis of L3 on L4 and 12 mm grade 2 anterolisthesis of L4 on L5. Vertebral body heights are maintained. No T1 hypointense lesion is identified. Normal conus medullaris terminating at the L1 level. Well-circumscribed 1.5 cm right interpolar renal cyst. T12-L1 and L1-L2: Symmetric disc bulge without significant spinal canal stenosis. L2-L3: Moderate-severe spinal canal stenosis resulting largely from symmetric disc bulge and pronounced facet joint hypertrophy. L3-L4: Mild spinal canal stenosis largely as sequela of pronounced facet hypertrophy. No significant right neural foraminal stenosis. Granulation tissue extending into the left neuroforamen abutting the exiting nerve root. L4-L5: Posterior decompression. Mild-moderate residual narrowing of the thecal sac and mild-moderate bilateral neural foraminal stenosis resulting from pronounced facet hypertrophy and anterolisthesis. L5-S1: No significant spinal canal stenosis. Mild-moderate bilateral neural foraminal narrowing from facet hypertrophy and symmetric disc bulge. Impression: 1. Operative changes of posterior fusion from L3-L5 with posterior decompression. 2. At the L2-L3 superior junction, moderate-severe spinal canal stenosis. 3. At L3-4, mild spinal canal stenosis and granulation tissue within the left neural foramen. 4. At L4-L5, mild-moderate residual narrowing of the thecal sac and dvfi-os-agammxgd bilateral neural foraminal narrowing. Dictated by Wil Pollard MD @ 03/16/2023 9:13:09 AM (Electronically Signed)
== END 2023-03-15 15:05 | disposition home or self-care (01) ==
LOC: MRI 15:04
PROVIDERS: PCP Family Medicine; Visit Provider Family Medicine
DX: M54.16 Radiculopathy, lumbar region (principal); M51.25 Other intervertebral disc displacement, thoracolumbar region; M51.26 Other intervertebral disc displacement, lumbar region; Z98.890 Other specified postprocedural states
CPT/HCPCS: 72148

== ENCOUNTER 2023-04-04 07:13 | Outpatient (CLI) | payer MEDICARE, BC, SELFPAY ==
--- OUTSIDE RECORDS SUMMARY | 2023-04-04 07:15 | XMS_ITS | Continuity of Care Document ---
Author Name Unknown Organization [facility] Address [address] [place] [address] Phone Care Team Providers Care Facilities Maintenance Assistant Name Role Phone Gaye Caal MD Unavailable [...] [facility], [address], [place], [id number], [place] tel:[phone] [facility] Encounter for other specified surgical aftercare 3 Afua Huizar. [facility], [address], [place], [id number] , [place]. tel:[phone] Referring Provider: Orlin Gudino [address], [address]. tel:[phone] Office/Outpat ient Visit,Est, Mod [facility], [address], [facility] [place], [id number], [place] tel:[phone] [facility] Encounter for other specified surgical aftercare Oct- 0202 2 Mehbod Amir. [facility] [place], [address] [place] [address] [address], [place], [place], [id number] , [place]. [phone] Referring Provider: Orlin Gudino [address], [address]. tel:[phone] [facility], [address], [facility] [place] [id number], [place] tel:[phone] [facility] Encounter for other specified surgical aftercare 2 Mehbod Amir. [facility] [place], [address] [place] [address], [place], [place], [id number] , [place]. [phone] Referring Provider: Orlin Gudino [address], [address]. tel:[phone] [facility], [address], [facility], [place], [id number], [place] tel:[phone] [facility] Encounter for other specified surgical aftercare 2 Mehbod Amir. [facility] [place], [address] [place] [address], [place], [place], [id number] , [place]. tel:[phone] Referring Provider: Orlin Gudino [address], [address]. tel:[phone] [facility], [address], [facility] [place], [id number], [place] tel:[phone] [facility] No Information Apr- 2 Irma Chow. [address] [place] [address], [facility] [place], [place], [id number] , [place]. tel:[phone] Referring Provider: Orlin Gudino [address], [address]. tel:[phone] [facility], [address], [place], [place], [id number], tel:[phone] [facility] No Information 2 Mehbod Amir. [facility], [address] [place] [address] [address], [place], [place], [id number] , [place]. [phone] Referring Provider: Orlin Gudino [address], [address]. tel:[phone] Office/Outpat ient Visit,[facility], [facility], [address], [place], [place], [id number], [place] tel:[phone] [facility] Spinal stenosis, lumbar region with neurogenic claudicationS pondylolisthe sis, lumbar region Fe 2 Mehbod Amir. [facility] [place], [address], [place], [place], [id number] , . tel:[phone] Referring Provider: Orlin Gudino [address], [address]. tel:[phone] Family History Family Member Type Diagnosis Age At Onset No Information Payers Payer name Insurance type Covered libertarian ID Samy viramontes(s) Medicare MB [id number] [facility] [address] [facility] [id number] Social History Type Description Quantity Date Captured [...]
== END 2023-04-04 07:14 | disposition home or self-care (01) ==
LOC: INJ CL 07:14
PROVIDERS: PCP Family Medicine; Visit Provider Family Medicine
DX: M54.16 Radiculopathy, lumbar region (principal); M51.36 Other intervertebral disc degeneration, lumbar region
CPT/HCPCS: 64483; J1100; Q9966

== ENCOUNTER 2024-02-15 12:30 | Outpatient (CLI) | payer MEDICARE, BC, SELFPAY ==
--- OUTSIDE RECORDS SUMMARY | 2024-02-15 12:33 | XMS_ITS | Continuity of Care Document ---
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 tel:[phone] Referring Provider: Orlin Bond, [facility], [place], [address]. tel:[phone] Office/Outpat ient Visit,Est, Mod [facility], [address], [place], [id number], [place] tel:[phone] [facility] Encounter for other specified surgical aftercare Oct- 0202 2 Mehbod Amir. [facility] [address], [address] [place] [address], [facility], [place], [id number] , [place]. tel:[phone] Referring Provider: Orlin Bond, [facility], [place], [address]. tel:[phone] [facility], [address], [place], [id number], [place] tel:[phone] [facility] En[facility] for other specified surgical aftercare 2 Mehbod Amir. [facility] [address], [address] [place] [address], [facility] [place], [place], [id number] , [place]. tel:[phone] Referring Provider: Luc PhippsStarCard Chloe [facility], [place], [address]. tel:[phone] [facility], [address], [place], [id number], [place] tel:[phone] [facility] Encounter for other specified surgical aftercare 2 Mehbod Amir. [facility] [address], [address] [place] [address], [facility] [place], [place], [id number] , [place]. [phone] Referring Provider: Orlin Bond [facility], [place], [address]. tel:[phone] [facility], [address], [place], [id number], [place] tel:[phone] [facility] No Information 2 Irma Chow. [address] [place] [address] [address], [place], [id number] , . tel:[phone] Referring Provider: Orlin Bond, Q[facility]io [facility], [place], [address]. tel:[phone] [facility], [address], [place], [id number], [place] tel:[phone] [facility] No Information 2 Mehbod Amir. [facility], [address] [place] [address] [address], [facility] [place], [address] , [place]. tel:[phone] Referring Provider: Orlin Bond, [employer] Chloe Morrell , [place], [address]. tel:[phone] Office/Outpat ient Visit,[facility], [facility], [address], [place], [id number], [place] tel:[phone] [facility] Spinal stenosis, lumbar region with neurogenic claudicationS pondylolisthe sis, lumbar region Fe 2 Mehbod Amir. [facility] [address], [address] [place] [address] [address], [place], [place], [address] , [place]. tel:[phone] Referring Provider: Orlin Bond, Style[employer] Chloe [facility], [place], [address]. tel:[phone] Family History Family Member Type Diagnosis Age At Onset No Information Payers Payer name Insurance type Covered green party ID Samy viramontes(s) Medicare MB [id number] [facility] [id number] [facility] [id number] Social History Type Description Quantity Date Captured [...]
--- OUTSIDE RECORDS SUMMARY | 2024-02-15 12:33 | XMS_ITS | Clinical Summary ---
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 0 05/16/20 11 Active Cholecalciferol, Vitamin D3, 5,000 unit Tab Take by mouth once daily. 0 03/25/20 13 Active fexofenadine (JAGDISH) 180 mg tablet Take 1 tablet by mouth once daily. 90 tablet 3 03/25/20 13 Active CaneIndications:Rh eumatoid arthritis, unspecified (HC) Single Point Cane for home use. 99 length 1 Device 02/28/20 17 Active sulfaSALAzine (AZULFIDINE) 500 mg tablet Twice A Day At 8:00AM And 12:00PM Active folic acid 1 mg tablet Take 1 mg by mouth once daily. Active acetaminophen (TYLENOL) 325 mg tabletIndications: Lumbar stenosis with neurogenic claudication Take 2 Tablets (650 mg) by mouth every 6 hours if needed (pain). Max acetaminophen dose: 4000mg in 24 hrs. 50 Tablet 10/23/19 22 Active sennosides-docusat e (SENOKOT S) (8.6-50 mg) tabletIndications: Lumbar stenosis with neurogenic claudication Take 1 Tablet by mouth 2 times daily. 50 Tablet 10/23/19 22 Active methotrexate (RHEUMATREX) 2.5 mg tabletIndications: Rheumatoid arthritis of multiple sites with negative rheumatoid factor (HC) Take 12.5 mg by mouth once weekly. Starting on 11/07/21. 0 11/08/19 22 Active cyclobenzaprine (FLEXERIL) 10 mg tabletIndications: Chronic pain syndrome Take 1 Tablet (10 mg) by mouth 3 times daily. 270 Tablet 11/02/19 22 Active abatacept (Orencia) subcutaneous syringeIndications :Rheumatoid arthritis of multiple sites with negative rheumatoid factor (HC) Inject 6 mL (750 mg) subcutaneous every 4 weeks. 0 02/11/20 22 Active predniSONE (DELTASONE) 2.5 mg tablet Take 5 mg by mouth. 06/01/20 22 Active pantoprazole (PROTONIX) 40 mg delayed-release tabletIndications: Chronic GERD Take 1 Tablet (40 mg) by mouth once daily before a meal. 90 Tablet 3 02/03/20 23 Active simvastatin (ZOCOR) 80 mg tabletIndications: Mixed hyperlipidemia TAKE 1/2 (ONE-HALF) TABLET BY MOUTH AT BEDTIME 45 Tablet 3 02/03/20 23 Active HYDROcodone-acetam inophen (5-325 mg/tablet)Indicati ons:Status post lumbar spine surgery for decompression of spinal cord,Lumbar radiculopathy Take 1 Tablet by mouth every 4 hours if needed for Pain. Max acetaminophen dose: 4000 mg in 24 hrs. 18 Tablet 05/29/20 23 Active ibuprofen (ADVIL; MOTRIN) 200 mg tabletIndications: Vaginal vault prolapse,Rectocele ,Enterocele,Midlin e cystocele Take 2-4 Tablets (400-800 mg) by mouth every 6 hours if needed for Pain (mild pain). 08/31/19 24 Active oxyCODONE (ROXICODONE) 5 mg immediate release tabletIndications: Vaginal vault prolapse,Rectocele ,Enterocele,Midlin e cystocele Take 1-2 Tablets (5-10 mg) by mouth every 4 hours if needed for Pain. 5 Tablet 08/31/19 24 Active polyethylene glycoL (MIRALAX) 17 gram/scoop powderIndications: Vaginal vault prolapse,Rectocele ,Enterocele,Midlin e cystocele Mix 1 scoop (17 g) in liquid then take by mouth once daily. 08/31/19 24 Active sennosides (SENNA) 8.6 mg tabletIndications: Vaginal vault prolapse,Rectocele ,Enterocele,Midlin e cystocele Take 2 Tablets (17.2 mg) by mouth two times daily. 08/31/19 24 Active zolpidem (AMBIEN) 5 mg tabletIndications: Transient insomnia Take 1 Tablet (5 mg) by mouth at bedtime. 60 Tablet 12/25/19 24 Active potassium chloride (K-TAB) 10 mEq extended-release tabletIndications: Hypokalemia TAKE 2 TABLETS BY MOUTH TWICE DAILY WITH MEALS 360 Tablet 1 02/04/20 24 Active FLUoxetine (PROZAC) 10 mg capsuleIndications :Depression, unspecified depression type Take 1 Capsule (10 mg) by mouth once daily in the morning. 90 Capsule 3 02/08/20 24 Active estradioL (ESTRACE) 2 mg tabletIndications: Post-menopausal Take 1 Tablet (2 mg) by mouth once daily. 90 Tablet 3 02/08/20 24 Active amitriptyline (ELAVIL) 10 mg tabletIndications: Chronic pain syndrome,Rheumatoi d arthritis of multiple sites with negative rheumatoid factor (HC) TAKE 2 TO 3 TABLETS BY MOUTH AT BEDTIME 270 Tablet 2 02/08/20 24 Active lisinopriL (PRINIVIL; ZESTRIL) 20 mg tabletIndications: Essential hypertension Take 1 Tablet (20 mg) by mouth once daily. 90 Tablet 3 02/08/20 24 Active polyethylene glycol-electrolyte (GOLYTELY) 236-22.74-6.74 -5.86 gram suspensionIndicati ons:History of colonic polyps Drink 6 liters the day before colonoscopy and 2 liters 6 hours before colonoscopy appointment. 8000 mL 03/25/20 24 Active methocarbamoL (ROBAXIN) 750 mg tabletIndications: Lumbar stenosis with neurogenic claudication Take 1 Tablet (750 mg) by mouth 3 times daily. 90 Tablet 1 01/29/20 22 024 Discontinued(*M ed complete/Regime n complete/Level of care change) estradioL (ESTRACE) 2 mg tabletIndications: Post-menopausal Take 1 Tablet (2 mg) by mouth once daily. 90 Tablet 3 02/03/20 23 024 Discontinued(Re order (E-cancel not sent)) FLUoxetine (PROZAC) 10 mg capsuleIndications :Depression, unspecified depression type Take 1 Capsule (10 mg) by mouth every morning. 90 Capsule 3 02/03/20 23 024 Discontinued(Re order (E-cancel not sent)) lisinopriL (PRINIVIL; ZESTRIL) 20 mg tabletIndications: Essential hypertension Take 1 Tablet (20 mg) by mouth once daily. 90 Tablet 3 02/03/20 23 024 Discontinued(Re order (E-cancel not sent)) potassium chloride (K-TAB) 10 mEq extended-release tabletIndications: Hypokalemia Take 2 Tablets (20 mEq) by mouth two times daily with meals. 360 Tablet 02/03/20 23 024 Discontinued acetaminophen (TYLENOL) 325 mg tabletIndications: Vaginal vault prolapse,Rectocele ,Enterocele,Midlin e cystocele Take 3 Tablets (975 mg) by mouth every 6 hours. Max acetaminophen dose: 4000mg in 24 hrs. 100 Tablet 08/31/19 24 024 Discontinued(*M ed complete/Regime n complete/Level of care change) amitriptyline (ELAVIL) 10 mg tabletIndications: Chronic pain syndrome,Rheumatoi d arthritis of multiple sites with negative rheumatoid factor (HC) TAKE 2 TO 3 TABLETS BY MOUTH AT BEDTIME 270 Tablet 2 09/04/19 24 024 Discontinued(Re order (E-cancel not sent)) Active Problems Problem Noted Date Diagnosed Date Midline cystocele 08/31/2023 Rectocele 08/31/2023 Enterocele 08/31/2023 Vaginal vault prolapse 08/31/2023 KIRK (stress urinary incontinence, female) 2023 Pure hypercholesterolemia 10/20/2021 Primary hypertension 10/20/2021 Hormone replacement therapy (postmenopausal) GERD without esophagitis 10/20/2021 Lumbar stenosis with neurogenic claudication Tachycardia 10/20/2021 Spondylolisthesis of lumbar region 10/20/2021 Diverticulosis of colon 11/19/2018 Rheumatoid arthritis of [facility] with negative rheumatoid factor 05/01/2017 Personal history of colonic polyps 06/01/2010 Overview: Colonoscopy 05/2010 hemorrhoids repeat in 5 years Colonoscopy 03/2015 polyps repeat in 5 years Colonoscopy 01/2022 few diverticuli, long colon, repeat in 7 years, PEG 8L Pain in joint, lower leg 12/20/2006 Cervicalgia 12/20/2006 Unspecified essential hypertension 10/12/2006 Other and unspecified hyperlipidemia 10/12/2006 Chronic pain syndrome 10/12/2006 Unspecified sleep apnea 10/12/2006 Resolved Problems Problem Noted Date Diagnosed Date Resolved Date Major depression, recurrent, chronic 10/20/2021 02/02/2023 Rheumatoid arthritis 02/27/2017 017 Rheumatoid arthritis 09/27/2016 017 Encounters Date Type Department Care Team Description 02/08/2024 Refill [facility] [address] [place] [address] Hien Nieves DO Refill Request (Fluoxetine) 02/07/2024 9:50 AM CDT Office Visit [facility] [address] [place] [address] Hien Nieves DO Musculoskeletal Problem (right side-pain from shoulders to ankles then tingly in mornings); Edema (swelling on right side hip area) 02/07/2024 Telephone [facility] [address] [place] [address] Elmer Haynes MD Need Meds 02/07/2024 Travel 02/01/2024 Refill [facility] [address] [place] [address] Hien Nieves DO Refill Request (Potassium Chloride) 12/23/2023 Refill [facility] [address] [place] [address] Hien Nieves DO Refill Request (Zolpidem) from Last 3 Months Immunizations Name Administration Dates Next Due COVID-19 vaccine ([employer] NTech 30mcg/0.3mL) 12YO+ BIVALENT PF, MDV 05/20/2022 COVID-19 vaccine ([employer] NTech 30mcg/0.3mL) PF, MDV 05/21/2021,10/10/2020,09/19/2020 Covid-19 Vaccine (Unspecified) 10/01/2020 DT (Age < 7 years) 05/19/1998 HepA-HepB (Twinrix) 12/13/2018,03/08/2017,2016 Hepatitis B (Adult) 07/03/1998 Influenza A (H1N1), Inactivated 07/21/2009 Influenza, High-dose Inactivated 021,03/23/2020,02/23/2017,02/01 Influenza, High-dose Quadriv alent Inactivated 03/18/2023,03/23/2020 Influenza, IIV3 (Age >=3 years) 02/08/20 18,04/13/2015,03/12/2013,0 07/2011,03/15/2011,04/20/2010,04/02/20 09,05/05/2008,04/25/2007,05/16/2006 Influenza, IIV4 03/12/2013 Influenza, Inactivated AIIV4 (Age 65+ Years) Preserv Free 05/20/2022 Influenza, Inactivated IIV3 (Age 65+ Years) Preserv Free 04/26/2019 04/26/2020 Pneumococcal Conj 20-valent (Prevnar 20) 03/18/2023 Pneumococcal Poly,23-Valent (Pneumovax) 07/16/2019,05/21/2012 Pneumococcal conj 13-Valent (Prevnar 13) 11/13/2015 Pneumococcal, Unspecified 07/03/2016 RSV, Recombinant ADJ Reconst ituted (Arexvy 120MCG/0.5mL) 03/18/2023 Td (Age >=7 Years) 05/17/2000 Tdap 03/12/2021,10/11/2010 Yellow Fever 01/09/2017 Zoster (Shingrix-RZV, recombinant) 07/16/2019, Zoster (Zostavax-ZVL, live) 02/25/2016 Family History Medical History Relation Name Comments Heart Disease Father Lucero Hyperlipidemia Father Lucero Hypertension Father Lucero Other Father Lucero Alzheimer's Heart Disease Mother Susan Hyperlipidemia Mother Susan Hypertension Mother Susan Other Mother Susan Macular degenar ation Stroke Mother Susan Cancer-breast Other 2 cousins Relation Name Status Comments Daughter Cindy Alive Adopted Father Lucero Alive Mother Susan Alive Other Son Lei Alive Social History Tobacco Use Types Packs/Day Years Used Date Smoking Tobacco: Never Smokeless Tobacco: Never Tobacco Cessation:Counseling Given: Yes Alcohol Use Standard Drinks/Week Comments No 0 (1 standard drink = 0.6 oz pur e alcohol) PHQ-2 Answer Date Recorded PHQ-2 TOTAL SCORE 0 02/07/2024 Social Connections Answer Date Recorded Frequency of Communication with Friends and Fami ly 0 02/15/2023 Financial Resource Strain Answer Date R ecorded Difficulty of Paying Living Expenses 3 02/15/2023 Difficulty of Paying Living Expenses Not on file 02/15/2023 Food Insecurity Answer Date Recorded Worried About Running Out of Food in the Last Ye ar 1 02/15/2023 Transportation Needs Answer Date Record ed Lack of Transportation (Medical) 1 02/15/2023 Housing Stability Answer Date Recorded Unable to Pay for Housing in the Last Year 1 02/15/2023 Sex and Gender Information Value Date Recorded Sex Assigned at Not on file Gender Identity Not on file Sexual Orientation Not on file Obstetrics History Para Term AB IAB SAB Ectopic Multiple Livin g Live Births 1 1 Date Outcome GA Total Labor Labor/2nd/3rd Weight Sex Type Anes PTL Lachelle A1 A5 Name Clin Para Comments G1: 1977, vaginal delivery, son Last Filed Vital Signs Vital Sign Reading Time Taken Comments Blood Pressure 113/72 02/07/2024 10:15 AM CDT Pulse 77 02/07/2024 10:15 AM CDT Temperature 36.6 ??C (97.8 ??F) 10/06/2023 8:59 AM CD T Respiratory Rate 16 08/31/2023 2:28 PM [employer]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 Oxygen Saturation 97% 02/07/2024 10:15 AM CDT Inhaled Oxygen Concentration - - Weight 88.5 kg (195 lb) 02/07/2024 10:15 AM CDT Height 164.5 cm (5' 4.75) 02/07/2024 10:15 AM C DT Body Mass Index 32.7 02/07/2024 10:15 AM CDT Plan of Treatment Upcoming Encounters Date Type Department Care Team (Late st Contact Info) Description 03/06/2024 9:40 AM CDT Ancillary Procedure [facility] [address] [place] [address] 03/08/2024 1:50 PM CDT Office Visit [facility] [address] [place] [address] Hien Nieves DO [address] [place] [address] Scheduled Procedures Name Priority Associated Diagnoses Date/Ti me SURGICAL PROCEDURE (TYPE PRO CEDURE DESCRIPTION BELOW) History of colonic polyps Health Maintenance Due Date Last Done Comments COVID-19 vaccine series ( season) 2024 11/29/2023, 04/17/2023, 05/20/2022, Additional history exists Mammogram for age 45-75 02/02/2024 02/02/20, 12/20/2021, 12/10/2020, Additional history exists Medicare Wellness for age 65+ 02/02/2024, 01/28/2022, 01/20/2021, Additional history exists Influenza for age 65+ 03/03/2024 03/18/2023 , 05/20/2022, 03/12/2021, Additional history exists BMI (ht and wt on same day) for age 18+ 02/06/2025 02/07/2024, 08/16/2023, 02/01/2023, Additional history exists Depression screening for age 12+ 02/07/2025 02/08/2024, 02/07/2024, 02/07/2024, Additional history exists Lipids for age 45-75 02/06/2029 02/07/2024, 02/01/2023, 04/08/2022, Additional history exists Colonoscopy through age 75 02/10/202902/10, 02/10/2022, 07/29/2020, Additional history exists Tetanus booster 03/12/2031 03/12/2021, 10/01, 10/11/2010, Additional history exists Zoster (shingles) series for age 50+ Completed 07/16/2019, 12/13/2018, 02/25/2016 DEXA/DXA scan for age 65+ Completed 2020, 03/18/2013, 10/11/2010 Tdap Completed 03/12/2021, 10/11/2010 Hepatitis C screening for ag e 18-79 Completed 02/01/2023 Pneumococcal series for age 65+ Completed 03/18/2023, 07/16/2019, 07/03/2016, Additional history exists Medical Devices Implanted Type Area Electrotyper Helper Device Identifier Shelf Expiration Date Model / Serial / Lot [id number] one 1-4mm 60cc Medtronic Fine Canclls Freeze Dried Implanted:Qty: 1 on 10/20/2021 by Gaye Caal MD at [facility] Explanted:at [facility] (Quantity not on file) N/A: Spine Medtronic Spine/Ortho 10/14/2025 [id number] / [id number] / [id number] one Matrix 6cc [place] Dbf Putty Dbm Implanted:Qty: 1 on 10/20/2021 by Gaye Caal MD at [facility] Explanted:at [facility] (Quantity not on file) N/A: Spine Medtronic Spine/Ortho 09/07/2023 [id number] / [id number] / Spacer Lmbr [id number] 0 Deg Avs Unilif - [id number] Implanted:Qty: 1 on 10/20/2021 by Gaye Caal MD at [facility] N/A: Spine Matthew Spine [id number] / / Spacer Lmbr [id number] 0 Deg Avs Unlif - [id number] Implanted:Qty: 1 on 10/20/2021 by Gaye Caal MD at [facility] N/A: Spine Matthew Spine [id number] / / Anupam Lmbr 80mmx6 Xia3 Cvd Titnm - [id number] Implanted:Qty: 1 on 10/20/2021 by Gaye Caal MD at [facility] N/A: Spine Matthew Spine [id number] / / Anupam Lmbr 70mmx6 Xia3 Max Cvd Titnm - [id number] Implanted:Qty: 1 on 10/20/2021 by Gaye Caal MD at [facility] N/A: Spine Matthew Spine [id number] / / Screw Lmbr Post 6.5x45mm Lexi 3va - [id number] Implanted:Qty: 4 on 10/20/2021 by Gaye Caal MD at [facility] N/A: Spine Matthew Spine [id number] / / Screw Lmbr Post 6.5x50mm Xia3va - [id number] Implanted:Qty: 2 on 10/20/2021 by Gaye Caal MD at [facility] N/A: Spine Matthew Spine [id number] / / Set Screw Lmbr Xia3 - [id number] Implanted:Qty: 6 on 10/20/2021 by Gaye Caal MD at [facility] N/A: Spine [place] Spine [id number] / / Mesh Pelvic 24x8cm Restorelle L - [id number] Implanted:Qty: 1 on 08/31/2023 by Anival Bhandari MD at [facility] N/A: Pelvis [employer] GoodyTag 11/08/2025 [id number] / / [id number] Sling Pelvic Advantage Fit Blue - [id number] Implanted:Qty: 1 on 08/31/2023 by Anival Bhandari MD at [facility] N/A: Pelvis [facility] 05/02/2026 [id number] / / [id number] Procedures Procedure Name Priority Date/Time Associated Diagnosis Comments CBC WITH AUTO DIFFERENTIAL Routine 02/07/2024 12:01 PM CDT Rheumatoid arthritis of multiple sites with negative rheumatoid factor (HC) C-REACTIVE PROTEIN Routine 02/07/2024 12 :01 PM CDT Chronic pain syndrome Rheumatoid arthritis of multiple sites with negative rheumatoid factor (HC) COMP METABOLIC PANEL Routine 02/07/2024 12:01 PM CDT Rheumatoid arthritis of multiple sites with negative rheumatoid factor (HC) CBC WITH AUTO DIFFERENTIAL Routine 02/07/2024 12:01 PM CDT Rheumatoid arthritis of multiple sites with negative rheumatoid factor (HC) LIPID PANEL W REFLEX MEASURED LDL Routine 02/07/2024 12:01 PM CDT Mixed hyperlipidemia SEDIMENTATION RATE Routine 02/07/2024 11 :53 AM CDT Rheumatoid arthritis of multiple sites with negative rheumatoid factor (HC) LC HCV ANTIBODY RFX TO QUANT PCR Routine 02/01/2023 10:31 AM CDT Need for hepatitis C screening test XR MAMMO KATHY BILAT SCREEN Routine 02/01/2023 8:39 AM CDT Visit for screening mammogram COLONOSCOPY 02/10/2022 9:18 AM CDT XR DXA BONE DENSITY 2 SITES AXIAL Routine 01/25/2021 9:30 AM CDT Postmenopausal from Last 3 Months or Most Recently Relevant to Health Maintenance Results * (ABNORMAL) CBC WITH AUTO DIFFERENTIAL (02/07/2024 12:01 PM CDT) [facility] WHITE BLOOD COUNT 7.9 4.5 - 11.0 thou/cu mm 02/07/2024 12:03 PM CDT [facility] RED BLOOD COUNT 3.86(L) 4.00 - 5.20 mil/cu mm 02/07/2024 12:03 PM CDT [facility] HEMOGLOBIN 12.7 12.0 - 16.0 g/dL 02/07/2024 12:03 PM CDT [facility] HEMATOCRIT 37.9 33.0 - 51.0 % 02/07/2024 12:03 PM CDT [facility] MCV 98 80 - 100 fL 02/07/2024 12:03 PM CDT [facility] MCH 32.9 26.0 - 34.0 pg 02/07/2024 12:03 PM CDT [facility] MCHC 33.5 32.0 - 36.0 g/dL 02/07/2024 12:03 PM CDT [facility] RDW 13.2 11.5 - 15.5 % 02/07/2024 12:03 PM CDT [facility] PLATELET COUNT 237 140 - 440 thou/cu mm 02/07/2024 12:03 PM CDT [facility] MPV 11.3(H) 6.5 - 11.0 fL 02/07/2024 12:03 PM CDT [facility] % NEUT 66.2 % 02/07/2024 12:03 PM CDT [facility] % LYMPH 24.1 % 02/07/2024 12:03 PM CDT [facility] % MONO 7.4 % 02/07/2024 12:03 PM CDT [facility] % EOS 1.9 % 02/07/2024 12:03 PM CDT [facility] % BASO 0.4 % 02/07/2024 12:03 PM CDT [facility] ABSOLUTE NEUTROPHILS 5.2 1.7 - 7.0 thou/cu mm 02/07/2024 12:03 PM CDT [facility] ABSOLUTE LYMPHOCYTES 1.9 0.9 - 2.9 thou/cu mm 02/07/2024 12:03 PM CDT [facility] ABSOLUTE MONOCYTES 0.6 <0.9 thou/cu mm 02/07/2024 12:03 PM CDT [facility] ABSOLUTE EOSINOPHILS 0.2 <0.5 thou/cu mm 02/07/2024 12:03 PM CDT [facility] ABSOLUTE BASOPHILS 0.0 <0.3 thou/cu mm 02/07/2024 12:03 PM CDT [facility] Blood BLOOD SPECIMEN / Unknown Venipuncture / Unknown 02/07/2024 12:01 PM CDT 02/07/2024 12:01 PM CDT Hien Lightt DO HEMATOLOGY [facility] [place] [place] [address], [place] [phone] * (ABNORMAL) LIPID PANEL W REFLEX MEASURED LDL (02/07/2024 12:01 PM CDT) CHOLESTEROL,TOTAL 225(H) 100 - 199 mg/dL 02/08/2024 12:27 AM CDT [facility] [employer] [facility] Comment: Cholesterol, Total Reference Ranges Desirable <200 mg/dL Borderline 200-239 mg/dL High >=240 mg/dL TRIGLYCERIDES 218(H) <150 mg/dL 02/08/2024 12:27 AM CDT [facility] [employer] [facility] HDL CHOLESTEROL 83 >40 mg/dL 12:27 AM CDT [facility] NON-HDL CHOLESTEROL 142 <145 mg/dl 02/08/2024 12:[address] [facility] CHOL/HDL RATIO 2.71 <4.50 02/08/2024 12:[address] [facility] LDL CHOLESTEROL 98 <=130 mg/dL 02/08/2024 12:[address] [facility] VLDL CHOLESTEROL 44(H) <=30 mg/dL 02/08/2024 12:[address] [facility] PROVIDER ORDERED STATUS RANDOM 02/08/2024 12:[address] [facility] Blood BLOOD SPECIMEN / Unknown Venipuncture / Unknown 02/07/2024 12:01 PM CDT 02/07/2024 12:01 PM CDT Hien Nieves DO CHEMISTRY [facility] [address] [place] [address], * (ABNORMAL) C-REACTIVE PROTEIN (02/07/2024 12:01 PM CDT) C-REACTIVE PROTEIN 0.8(H) <0.5 mg/dL 02/08/2024 12:27 AM CDT [facility] Blood BLOOD SPECIMEN / Unknown Venipuncture / Unknown 02/07/2024 12:01 PM CDT 02/07/2024 12:01 PM CDT Hien Bradshaw Ezequiel DO [facility] [address] [place] [address], * (ABNORMAL) COMP METABOLIC PANEL (02/07/2024 12:01 PM CDT) SODIUM 136 136 - 145 mmol/L 02/08/2024 12:[address] [facility] POTASSIUM 4.9 3.5 - 5.1 mmol/L 02/08/2024 12:[address] [facility] CHLORIDE 100 98 - 107 mmol/L 02/08/2024 12:[address] [facility] CO2,TOTAL 26 22 - 29 mmol/L 02/08/2024 12:[address] [facility] ANION GAP 10 5 - 18 02/08/2024 12:[address] [facility] GLUCOSE 112(H) 70 - 99 mg/dL 02/08/2024 12:[address] [facility] CALCIUM 9.6 8.8 - 10.2 mg/dL 02/08/2024 12:[address] [facility] BUN 21 8 - 23 mg/dL 02/08/2024 12:[address] [facility] CREATININE 1.14(H) 0.50 - 0.90 mg/dL 02/08/2024 12:[address] [facility] BUN/CREAT RATIO 18 10 - 20 12:[address] [facility] eGFR 51(L) >90 mL/min/1.7 3m2 02/08/2024 12:[address] [facility] Comment:As of 2021, eG FR is calculated by the CKD-EPI creatinine equation without race adjustment. ??eGFR can be influenced by muscle mass, exercise, and diet. ??The reported eGFR is an estimation only and is only applicable if the renal function is stable. ALBUMIN 4.3 4.0 - 4.9 g/dL 02/08/2024 12:[address] [facility] PROTEIN,TOTAL 7.0 6.0 - 8.0 g/dL 02/08/2024 12:[address] [facility] BILIRUBIN,TOTAL 0.4 0.0 - 1.2 mg/dL 02/08/2024 12:[address] [facility] ALK PHOSPHATASE 81 35 - 104 IU/L 02/08/2024 12:[address] [facility] ALT (SGPT) 15 10 - 35 IU/L 02/08/2024 12:[address] [facility] AST (SGOT) 26 10 - 35 IU/L 02/08/2024 12:[address] [facility] Blood BLOOD SPECIMEN / Unknown Venipuncture / Unknown 02/07/2024 12:01 PM CDT 02/07/2024 12:01 PM CDT Hien Nieves DO CHEMISTRY Performing Organization Address City/[facility]/ZIP Co de Phone Number [facility] [address] [address], [place] * SEDIMENTATION RATE (02/07/2024 11:53 AM CDT) SEDIMENTATION RATE 12 <30 mm/hr 2023 10:[address] [facility] Blood BLOOD SPECIMEN / Unknown Venipuncture / Unknown 02/07/2024 11:53 AM CDT 02/07/2024 11:59 AM CDT Hien Nieves DO HEMATOLOGY Performing Organization Address City/[facility]/ZIP Co de Phone Number [facility] [address] [place] [id number], [place] * LC HCV ANTIBODY RFX TO QUANT PCR (02/01/2023 10:31 AM CDT) HCV Ab Non Reactive Non Reactive 02/03/2023 9:06 PM CDT [facility] ([facility]) Blood BLOOD SPECIMEN / Unknown Venipuncture / Unknown 02/01/2023 10:31 AM CDT 02/01/2023 10:31 AM CDT Narrative [facility] ([facility]) - 02/03/2023 9:06 PM CDT Performed at: ??01 - [facility] [facility], [place], [place] ??[id number] College Advisor: Reinier Tadeo MD, Phone: ??[phone] Hien Nieves DO LABORATORY [facility] ([facility] [address] [place] [id number], [place] * XR MAMMO KATHY BILAT SCREEN (02/01/2023 8:39 AM CDT) Anatomical Region Laterality Modality BREASTS, Breast Left, Breast Right Bilateral Mammography Impressions 02/01/2023 4:29 PM CDT ??There is no radiographic evidence for malignancy. ??Recommend annual mammograms. MAMMOGRAM ASSESSMENT: ??ACR 1 Negative PATIENTS: You will also receive a letter with your examination results in an easy to read format. ??If you have questions about your results, please contact your referring provider. Narrative 02/01/2023 4:29 PM CDT For Patients: As a result of the 21st Century Cures Act, medical imaging exams and procedure reports are released immediately into your electronic medical record. You may view this report before your referring provider. If you have questions, please contact your health care provider. XR MAMMO KATHY BILAT SCREEN [[id number]] CLINICAL HISTORY: ??This is an asymptomatic 72 y.o. patient. INDICATION FOR EXAM: Mammogram Screening. TECHNIQUE: CC & MLO views were obtained. ??This study was evaluated with the assistance of Computer-Aided Detection. Breast Tomosynthesis was used in interpretation. COMPARISON FILM: Yes 12/20/21 [facility] 12/10/20 [facility] FINDINGS: ??The breasts are heterogeneously dense, which may obscure small masses. There are no dominant masses, suspicious micro calcifications or areas of architectural distortion. Hien Bradshaw Detert DO MAMMO * COLONOSCOPY (02/10/2022 9:18 AM CDT) 02/10/2022 9:18 AM CDT Narrative Transcriptions Elmer Haynes MD - 02/10/2022 10:26 AM CDT Patient Name: Sheri Brownlee Procedure Date: 02/10/2022 Gender: Female Date of : 1950 Admit Type: Outpatient Procedure: Colonoscopy Proceduralist: Elmer Haynes MD , Aurora Spencer, RN (Nurse) Indications/Pre-Op Diagnosis: High risk colon cancer surveillance:Personal history of adenoma less than 10 mm in size, Last colonoscopy: March 2015 Medications: Fentanyl 100 micrograms IV, Midazolam 4 mgIV, The level of sedation administered wasmoderate Procedure Description: The patient had risks, benefits and alternatives explained to andgave informed consent. The patient had a stable cardiopulmonary status and judged an adequate candidate for conscious sedation. The colonoscope was passed through the anus and advanced to thececum, identified by appendiceal orifice and ileocecal valve. Thecolonoscopy was performed without difficulty. The patient tolerated the procedure well. The quality of the bowel preparation was good. The ileocecal valve, appendiceal orifice, and rectum were photographed. Complications: No immediate complications. Estimated Blood Loss & Specimen: Estimated blood loss: none. Specimen collected - None Findings: The perianal and digital rectal examinations were normal. A few small-mouthed diverticula were found in the sigmoid colon. The colon (entire examined portion) was mildly redundant. The exam was otherwise without abnormality. Impressions/Post-Op Diagnosis: - Diverticulosis in the sigmoid colon. - Redundant colon. - The examination was otherwise normal. - No specimens collected. Recommendation: - Patient has a contact number available for emergencies. The signsand symptoms of potential delayed complications were discussed with the patient. Return to normal activities tomorrow. Written discharge instructions were provided to the patient. - Resume previous diet. - Continue present medications. - Repeat colonoscopy in 7 years for surveillance. - For future colonoscopy the patient will require an extended preparation, Peg 8L. If there are any questions, please contact the bulk sealer. Moderate Sedation: Moderate (conscious) sedation was administered by the endoscopy nurse and supervised by the endoscopist. The following parameters were monitored: oxygen saturation, heart rate, respiratory rate, blood pressure, adequacy of pulmonary ventilation and reponse to care. Please refer to the patient's medical record flowsheets and nursing notes for moderate sedation details. Total physician intraservice time was 18 minutes. Elmer Haynes MD 02/10/2022 10:26:46 AM This report has been signed electronically. Note Initiated On: 02/10/2022 9:18 AM Procedure Code(s): --- Professional --- 77251, Colonoscopy, flexible; diagnostic, including collection of specimen(s) bybrushing or washing, when performed (separateprocedure) Diagnosis Code(s): --- Professional --- Z86.010, Personal history of colonicpolyps K57.30, Diverticulosis of large intestine without perforation or abscess withoutbleeding Q43.8, Other specified congenitalmalformations of intestine CPT copyright 2020 [employer]. All rights reserved. The codes documented in this report are preliminary and upon geothermal system installer reviewmay be revised to meet current compliance requirements. Scope In: 10:00:39 AM Scope Withdrawal Time 0 hours 8 minutes 19 seconds Scope Out: 10:16:21 AM Elmer Haynes MD PROCEDURE ORD * XR DXA BONE DENSITY 2 SITES AXIAL [20527.1] (01/25/2021 9:30 AM CDT) Anatomical Region Laterality Modality Spine, HIPS, HIPL, HIPR Other Impressions 01/29/2021 4:04 PM CDT Normal bone density. RECOMMENDATIONS: The National Osteoporosis Foundation recommends pharmacologic treatment for patients with T-scores of -2.5 or less, patients with prior history of fragility fractures, or patients with 10-year probability of greater than 3% at hips or greater than 20% of suffering major osteoporotic fractures. Recommend continued optimization of calcium and vitamin D intake through dietary means and/or supplementation and regular exercise. Repeat scan recommended in 5 years. Purnima Burns PA-C Narrative 01/29/2021 4:04 PM CDT XR DXA Bone Mineral Density (BMD) EXAM LOCATION: [facility] [address] [facility] [id number] PATIENT NAME: Sheri Brownlee DATE OF : 1950 EXAM DATE: 01/25/2021 REQUESTING PROVIDER: Hien Nieves, GENDER AT : female HEIGHT: 5' 4 (01/20/2021) WEIGHT: ??196 lb 3.2 oz (01/20/2021) MENOPAUSAL STATUS: Postmenopausal RACE/ETHNICITY: White RISK FACTORS: Rheumatoid Arthritis and Steroid Medication (non-topical) CURRENT MEDICATION FOR BONE LOSS: NONE INDICATION: Screening for osteoporosis COMPARISON DATE(S): 2010 DXA scans are compared to prior studies for a patient only when the two (or more) studies were performed on the same scanner. It is not possible to compare data generated on one scanner to data from another because there are not standards in DXA equipment. This applies even if the two scanners are made by the same rn neurology. PROCEDURE: Dual-energy x-ray absorptiometry performed with routine technique. Reporting is completed in the form of a T-score. The T-score represents the standard deviation from peak bone mass based on young healthy adult. A Z-score is used for diagnosis in premenopausal women, and for men under the age of 50. FINDINGS: RESULT LUMBAR SPINE L1 - L2 ??BMD: 1.363 g/cm2 T-Score: + 1.6 Z-Score: + 2.4 Comparison to most recent scan ??in 2010: ??Increase 19.2%. RESULT FEMORAL NECK Left Total Femoral Neck BMD: 1.184 g/cm2 T-Score: + 1.1 Z-Score: + 2.2 RESULT TOTAL HIP Bilateral Total Hip BMD: 1.167 g/cm2 T-Score: + 1.3 Z-Score: + 2.2 Comparison to most recent scan ??in 2011: ??Increase 0.3%. WHO criteria: Normal: T-score at or above -1 SD Osteopenia: T-score between -1.1 and -2.4 SD Osteoporosis: T-score at or below -2.5 SD Hien Nieves DO DEXA from Last 3 Months or Most Recently Relevant to Health Maintenance Advance Directives * Full Code (Latest Code Status on File) Date Activated Date Inactivated Comments 08/31/2023 6:03 AM 08/31/2023 4:45 PM Question Answer Comments Code Status Discussion: Unable to Assess Preferences, Provider to review later * Full Code Date Activated Date Inactivated Comments 10/20/2021 1:25 PM 10/23/2021 3:42 PM Question Answer Comments Code Status Discussion: Unable to Assess Preferences, Provider to review later 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
--- OUTSIDE RECORDS SUMMARY | 2024-02-15 12:33 | XMS_ITS | Data Portability ---
Author Organization [place] [facility] Address [facility] [address] [place] [address] Care Team Providers [employer] Name Role Phone MARIO ESPINOZA Primary Care Provider DENIS MALIK Referring Provider [phone] Assessment Encounter Date Assessment Date Assessment LastModified by Organization Details LastModified Time 11/12/2020 11/12/2020 Today I spent a considerable amount of time discussing the patient's past medical and personal history, as well as performing a physical examination all of which is documented in its entirety in the electronic health record. I reviewed the pathophysiology of the disorder, potential contributing and risk factors as well as treatment options to address their complaints. Today I reviewed her XR report from 10/14/2020. Findings include moderate arthropathy at the right tmj with joint space narrowing and slight flattening of the superior mandibular condyle cortex in along with incomplete posterior position of the condyle in closed mouth position. A joint effusion may be present. Full report can be located in patient's EHR. I've not recommended advanced imaging at this time. From a treatment perspective I've recommended rehabilitative treatment approach. Treatment begins with home self management designed to rest the muscles of mastication and reduce inflammation in the temporomandibular joints. This includes heat and ice compresses, eating a soft food or pain-free diet, bilateral chewing, identifying and decreasing daytime muscle tension and modification of their sleep position. I explained and demonstrated in great detail self management of TMD. In addition I've recommended rehabilitation with physical therapy. The goal of treatment is to restore function and reduce pain. I do believe that by following these treatment recommendations there is a good prognosis for reduction of symptoms. Sheri will bring in her appliance for evaluation at her follow-up appointment. History today was obtained from the patient. The patient has 4 diagnoses they would like to address. This case is moderate complexity because of multiple diagnoses . Data reviewed included: previous imaging. Risk of complications including disease progression were discussed. Today time spent may have included a review of past records, history taking, review of diagnoses, contributing factors, treatment plan, diagnostic testing, prognosis, expectations, risks and complications of treatment/no treatment, discussions with other providers and completing documentation was 65 minutes. I've suggested that the patient return for follow-up care in 6 weeks. Not available 11/13/2020 13:55:53 12/03/2020 12/03/2020 Symptoms are consistent with TMD diagnosis. Patient is low complexity with 1 personal factors/comorbidit ies affecting the plan of care, low complexity decision making and a stable clinical presentation. Examination yields 3 affected structures, participation restrictions and/or functional limitations. The patient will benefit from PT to decrease pain and increase function. Contributing factors include muscle guarding, stress and poor posture. Treatment will include exercises to release muscle tension and increase strength and stability. Habit monitoring and repeated reminding techniques will be utilized to eliminate habitual clenching. Hands also moving much better post STM to dorsum of forearm. Crepitis over 50% better Improvement in first session; jaw opening increased, cervical ROM increased, pain level decreased Short term goals; 3 weeks Client to improve cervical ROM to Within Normal Limits Improve patient awareness of muscle guarding / clenching habits to decrease crepitis by 50% prison goals-6 weeks Client to demonstrate independence in maintaining precautions to prevent TMJ crepitis Client to present with at least 75% less crepitis Client to open jaw to at least 40 mm without pain, deviation or crepitis PLAN: Client is to be seen 1-2x/week for 4-8 weeks for instruction in jaw and neck exercises, postural exercises and body mechanics instructions, self-soft tissue mobilization and avoidance of precipitating parafunctional activities. [email or web address] Not available 12/03/2020 12:00:12 12/28/2020 12/28/2020 Improvement in first session; jaw opening increased, cervical ROM increased, pain level decreased. Gains were maintained and technique was refined. She is to continue at home. She will be seen in two weeks for recheck. Frequency will be established based on symptom status. Short term goals; 3 weeks Client to improve cervical ROM to Within Normal Limits Improve patient awareness of muscle guarding / clenching habits to decrease crepitis by 50% manager terminal goals-6 weeks Client to demonstrate independence in maintaining precautions to prevent TMJ crepitis Client to present with at least 75% less crepitis Client to open jaw to at least 40 mm without pain, deviation or crepitis csather Not available 12/31/2020 18:23:18 12/28/2020 12/28/2020 Today I reviewed the diagnosis, contributing factors and treatment options. I reviewed and reinforced continued use of self care and home exercises. I've encouraged daily home care use which may consist of heat and ice compresses, oral habit reduction and relaxation techniques. I explained to Sheri that wearing a mandibular advancement device at night could aggravate jaw and tmj pain. Sheri wants to continue with her MAD because she is intolerant of CPAP. I encouraged her to place heat on her jaw right before bed and first thing in the morning for 30 minutes. I checked her maxillary splint for bilateral posterior occlusion and explained that she could wear her splint for an hour three times a day to help retrain from daytime clenching. I encouraged further p/t appointments. History today was obtained from the patient. The patient has 4 diagnoses they would like to address. Their symptoms are worsening. This case is moderate complexity because of multiple diagnoses with chronic symptoms. Discussion with treatment team members before visit was necessary. Risk of complications including disease progression were discussed. Today time spent may have included a review of past records, history taking, review of diagnoses, contributing factors, treatment plan, diagnostic testing, prognosis, expectations, risks and complications of treatment/no treatment, discussions with other providers and completing documentation was 25 minutes. I've suggested that the patient return for follow-up care in 8 weeks. Not available 12/28/2020 15:22:21 Plan of Treatment Reminders Order Date Submit Date Provider Last Modified By Organization Details Last Modified Time Details Appointments None recorded. Lab None recorded. Referral physical therapist referral 2020 021 [email or web address] Not available 13:56:46 Procedures None recorded. Surgeries None recorded. Imaging None recorded. Medication Orders None recorded. Patient TargetsNo targets recorded. Patient Instructions Encounter Date Encounter Id Patient Instructions Last Modified By Organization Details Last Modified Time 11/12/2020 [id number] Self Care for TMD Not availab le 11/13/2020 13:56:46 12/03/2020 [id number] Plan: Medicare requires a assistant teacher primary or PASSENGER TRAIN BRAKER to authorize our plan of care. If you agree with the plan as outlined above, please sign, date and fax back to [phone]. Thank you. Primary MD signature: Date: [email or web address] Not available 12/03/2020 11:00:24 12/28/2020 [id number] Plan: Medicare requires a assistant teacher primary or PASSENGER TRAIN BRAKER to authorize our plan of care. If you agree with the plan as outlined above, please sign, date and fax back to [phone]. Thank you. Primary MD signature: Date: csather Not available 12/28/2020 14:39:24 Reason for Referral Physical Therapist Referral for Myofascial pain Referring Physician: Molly Belcher, Pain Management, Encounter Date: 11/12/2020 Results Created Date Observation Date Name Description Value Unit Range Abnormal Flag LastModifiedBy Organization Detail LastModifiedTime 11/13/19 21 11/12/2020 XR, tempo waqar dibul ar joint , bilat eral No observ ation record ed. BARCODE Not Available 11/12/2020 17:33:03 Result Notes None recorded. 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 Procedures Surgical History Date Name Laterality Status Provider Name and Address Organization Details Recorded Time 00364: Therapeutic Exercise completed Juan seymour [facility] 12/31/2020 09:24:31 57609: Manual Therapy completed Juan Early [facility] 12/31/2020 18:21:30 [id number] PT Eval - Low Complexity completed Juan Early [facility] 12/03/2020 11:38:10 44956: Therapeutic Exercise completed Juan seymour [facility] 12/03/2020 11:58:02 93268: Manual Therapy completed Juan seymour [facility] 12/03/2020 11:57:57 Knee arthroscopy/sara freedom completed Vega Everett [facility] 11/12/2020 09:42:23 Neck Surgery completed Vega seymour [facility] 11/12/2020 09:42:38 Carriere Teeth Extraction completed Vega seymour [facility] 11/12/2020 09:42:45 Imaging Results Imaging Date Name Status LastModified by Organization Details LastModified Time 11/12/2020 XR, temporomandibular joint, bilateral completed BARCODE Information not available 11/12/2020 17:33:03 Procedure Notes None recorded. Medical Equipment None Reported. Allergies Allergen ID Allergen Name Allergen Category Reaction Reaction Severity Criticality Documentation Date Start Date Code Code System Note Provider Name and Address Organization Details Recorded Time 82832 Medicinal product containin g penicilli n and acting as antibacte rial agent (product) medicatio n anaphylax is severe Not available 11/12/2020 73123 05 SNOMED ESTEFANÍA [place] - [facility] 09:38:18 Medications Name Sig Start Date Stop Date Status Note LastModified by Organization Details LastModified Time celecoxib 200 mg capsule TAKE 1 CAPSULE BY MOUTH TWICE DAILY WITH MEALS active Not Available Not Available No t Available cyclobenzap rine 10 mg tablet TAKE 1 TABLET BY MOUTH THREE TIMES DAILY active Not Available Not Available No t Available furosemide 40 mg tablet TAKE 1 2 (ONE HALF) TABLET BY MOUTH IN THE MORNING active Not Available Not Available No t Available prednisone 10 mg tablet active Not Available Not Available Not Available sulfasalazi ne 500 mg tablet Take 1 tablet 4 times a day by oral route. active Not Available Not Available No t Available azithromyci n 250 mg tablet TAKE 2 TABLETS BY MOUTH ON DAY 1 AND THEN TAKE 1 TABLET BY MOUTH ONCE A DAY ON DAY 2 THROUGH DAY 5 12/28 completed Not Available Not Available Not Available benzonatate 200 mg capsule TAKE 1 CAPSULE BY MOUTH THREE TIMES DAILY NEEDED FOR COUGH 11/12 completed Not Available Not Available Not Available lisinopril 20 mg tablet TAKE 1 TABLET BY MOUTH ONCE DAILY active Not Available Not Available No t Available prednisone 20 mg tablet TAKE 1 TABLET BY MOUTH ONCE DAILY WITH A MEAL FOR 5 DAYS 11/12 completed Not Available Not Available Not Available prednisone 5 mg tablet active Not Available Not Available Not Available Remicade 100 mg intravenous solution Inject by intraveno us route. active Not Available Not Available No t Available potassium chloride ER 10 mEq tablet,exte nded release TAKE 2 TABLETS BY MOUTH TWICE DAILY WITH MEALS active Not Available Not Available No t Available simvastatin 80 mg tablet TAKE 1 2 (ONE HALF) TABLET BY MOUTH AT BEDTIME active Not Available Not Available No t Available hydrocodone 10 mg-acetamin ophen 325 mg tablet TAKE 1 TABLET BY MOUTH EVERY 4 HOURS NEEDED FOR PAIN active Not Available Not Available No t Available doxycycline monohydrate 100 mg tablet TAKE 1 TABLET BY MOUTH TWICE DAILY FOR 10 DAYS 11/12 completed Not Available Not Available Not Available methotrexat e sodium 2.5 mg tablet TAKE 5 TABLETS BY MOUTH ONCE A WEEK active Not Available Not Available No t Available amitriptyli ne 10 mg tablet TAKE 2 TO 3 TABLETS BY MOUTH AT BEDTIME active Not Available Not Available No t Available pantoprazol e 40 mg tablet,mary yed release TAKE 1 TABLET BY MOUTH ONCE DAILY BEFORE A MEAL active Not Available Not Available No t Available fluoxetine 10 mg capsule TAKE 1 CAPSULE BY MOUTH ONCE DAILY IN THE MORNING active Not Available Not Available No t Available gabapentin 300 mg capsule Take 1 capsule 3 times a day by oral route. active Not Available Not Available No t Available triamterene 37.5 mg-hydrochl orothiazide 25 mg tablet TAKE 1 TABLET BY MOUTH ONCE DAILY IN THE MORNING active Not Available Not Available No t Available estradiol 2 mg tablet TAKE 1 TABLET BY MOUTH ONCE DAILY active Not Available Not Available No t Available folic acid 1 mg tablet TAKE 1 TABLET BY MOUTH ONCE DAILY IN THE MORNING active Not Available Not Available No t Available zolpidem 5 mg tablet TAKE 1 TABLET BY MOUTH ONCE DAILY AT BEDTIME active Not Available Not Available No t Available ergocalcife rol (vitamin D2) 1,250 mcg (50,000 unit) capsule active Not Available Not Available Not Available Triamterene W/Hctz 37.5 mg-25 mg capsule active Not Available Not Available Not Available Premarin 1.25 mg tablet Take 1 tablet every day by oral route. active Not Available Not Available No t Available duloxetine 60 mg capsule,del ayed release TAKE 1 CAPSULE BY MOUTH ONCE DAILY active Not Available Not Available No t Available Lyrica 50 mg capsule Take 1 capsule 3 times a day by oral route. active Not Available Not Available No t Available peg 3350-electr olytes 236 gram-22.74 gram-6.74 gram-5.86 gram solution active Not Available Not Available Not Available Sandra Allergy active Not Available Not Available Not Available Virtussin AC 10 mg-100 mg/5 mL oral liquid TAKE 5 ML (CC) BY MOUTH EVERY 4 HOURS NEEDED FOR COUGH . DO NOT EXCEED 60ML PER 24 HOURS 11/12 completed Not Available Not Available Not Available Vitals Date Recorded Body temperature Body height Body mass index (BMI) Body weight Heart rate Systolic blood pressure Diastolic blood pressure Provider Name and Address Organization Details Last Updated DateTime 1 96.4 [degF] 162.56 cm 34.3 kg/m2 43766.4 7 g 98 /min 112 mm[Hg] 80 mm[Hg] Vega Everett [place] [facility] 09:38:02 Date Recorded Body height Body temperature Systolic blood pressure Diastolic blood pressure Provider Name and Address Organization Details Last Updated DateTime 12/28/2020 162.56 cm 97.3 [degF] 121 mm[Hg] 78 mm[Hg] Vega Everett [facility] 14:04:53 Social History Question Answer Notes LastModified by Organizat ion Details LastModified Time Tobacco Smoking Status Never Smoker Vega seymour [facility] 11/12/2020 09:38:42 Are You Currently Employed? No Information not available 11/12/2020 What Type Of Diet Are You Following? REGULAR Information not available 11/12/2020 Do You Reside In Or Have You Traveled To An Area Where Ebola Virus Transmission Is Active? No Information not available 11/12/2020 What Is Your Relationship Status? Information not available 11/12/2020 Do You Feel Stressed (tense, Restless, Nervous, Or Anxious, Or Unable To Sleep At Night)? [id number] Information not available 12/28/2020 Do You Use Any Illicit Or Recreational Drugs? No Information not available 11/12/2020 Sex: Unknown Functional Status None recorded. Mental Status None recorded. Family History Relationship Description Onset Age of this Age Resolved Age Notes Father Alzheimer's disease Father Heart disease Sister Heart disease Medical History Condition Response Allergies/Hayfever Y Autoimmune disease Y Arthritis Y Head Trauma/Injury Y Rheumatoid Arthritis Y Fibromyalgia Y Obstructive Sleep Apnea Y Gynecological HistoryNo gynecological history recorded. Obstetrics History GPAL:G 0 P 0 0 0 0 Immunizations Vaccine Type Date Status Provider Name and Address Organization Details Recorded Time Influenza, split virus, trivalent, preservative 03/03/2020 completed Vega seymour [facility] 11/12/2020 09:38:47 pneumococcal, unspecified formulation 07/03/2016 yves seymour [facility] 11/12/2020 09:38:47 SARS-COV-2 (COVID-19) vaccine, UNSPECIFIED 10/01/2020 yves seymour [place] [facility] 11/12/2020 09:39:19 Past Encounters Encounter ID Performer Location Encounter Start Date Encounter Closed Date Diagnosis/Indication Diagnosis SNOMED-CT Code [id number] Molly Kwesi Kaplan e [address] [place] [id number] 11/12/2020 09:23:55 11/12/2020 10:51:59 Otalgia of right ear 996229050670943 5 Arthralgia of temporomandibular joint 13498503 Degenerati ve arthritis of temporomandibular joint 298127878 Myofascial pain 80344343 9 [id number] Juan Kaplan e [address] [place] [id number] 12/03/2020 10:57:20 12/03/2020 11:55:23 Arthralgia of temporomandibular joint 33124208 Degenerati ve arthritis of temporomandibular joint 639575559 Myofascial pain 05118485 9 [id number] Molly Kwesi Kaplan e [address] [place] [id number] 12/28/2020 13:47:29 12/28/2020 15:05:28 Otalgia of right ear 117757578592479 5 Degenerati ve arthritis of temporomandibular joint 859566276 Myofascial pain 39068366 9 Arthralgia of temporomandibular joint 95119059 [id number] Juan Kaplan e [address] [place] [id number] 12/28/2020 13:48:25 12/28/2020 15:05:44 Arthralgia of temporomandibular joint 09845999 Degenerati ve arthritis of temporomandibular joint 081860592 Myofascial pain 60442046 9 Health Concerns Section Related Observation LastModified by Organization Detai ls LastModified Time None Recorded Concern Status LastModified by Organization Details LastModified Time None Recorded Advance Directives Directive None Recorded Payers Encounter Date Sequence Insurance Name Policy Number Policy Disla Covered Member ID Disla Member ID Guarantor Name 11/12/2020 1 MEDICARE [facility] [employer] Sheri E Pichotta [id number] Sheri Pichotta 11/12/2020 2 [facility] [id number] Sheri Dee Pichotta [id number] Sheri Pichotta 12/03/2020 1 [facility]ICARE [facility] [employer] Sheri E Pichotta [id number] Sheri Pichotta 12/03/2020 2 [place] [id number] Sheri E Pichotta [id number] Sheri Pichotta 12/28/2020 1 MEDICARE [facility]: NATIONAL GOV[employer]MENT SERVICES [facility] Sheri E Pichotta [id number] Sheri Pichotta 12/28/2020 2 [place] [id number] Sheri E Pichotta [id number] Sheri Pichotta 12/28/2020 1 MEDICARE [facility]: [employer] Sheri E Pichotta [id number] Sheri Pichotta 12/28/2020 2 [place] [id number] Sheri E Pichotta [id number] Sheri Pichotta Notes Date Note Type Note Provider Name and Address Organization Details Recorded Time 11/12/2020 text/html HPI Notes: Jaw p ain Reported by patient. Onset: started 3 month(s) ago Location: right; preauricular; ear Quality: dull; aching; sore; shooting; sharp Severity: pain level 0-3/10; radiating to ear Duration and frequency constant Context: clenching; bruxism; chews hard/crunchy/chewy foods Aggravating/contributi on factors: grinding teeth; clenching the teeth; yawning; wide mouth opening Alleviating Factors: acetaminophen; ice; splint therapy Associated Symptoms: jaw clicking right; jaw popping right; tooth pain Prior Tests: CT maxillofacial; MRI Prior opinion primary care provider Patient presents today for evaluation of a possible temporomandibular disorder. These symptoms are chronic and began with no clear triggering events. Previous consultation include evaluation with her primary care provider. Symptoms are right sided only and aggravated by jaw use and function. The patient is aware of teeth clenching and grinding. Sheri reports that she has worn government guard appliances for many years. She is currently wearing an oral device for PK. She did not bring the appliance with her today. For the last 3 months, Sheri has been experiencing right-sided jaw pain and tmj cracking. She feels like there is fluid in her right ear. 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 Sheri states that in 2017 she slipped and fell on the driveway and sustained a head injury. 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 ESTEFANÍA [facility] - [facility] 11/13/2020 13:56:50 12/03/2020 text/html HPI Notes: Jaw p ain Reported by patient. Onset: started 3 month(s) ago Location: right; preauricular; ear Quality: dull; aching; sore; shooting; sharp Severity: pain level 0-3/10; radiating to ear Duration and frequency constant Context: clenching; bruxism; chews hard/crunchy/chewy foods Aggravating/contributi on factors: grinding teeth; clenching the teeth; yawning; wide mouth opening Alleviating Factors: acetaminophen; ice; splint therapy Associated Symptoms: jaw clicking right; jaw popping right; tooth pain Prior Tests: CT maxillofacial; MRI Prior opinion primary care provider Personal factors and/or comorbidities affecting the plan of care include . Functional limitations and participation restrictions include . Patient presents today for PT evaluation regarding jaw pain. Symptoms began with trauma. Functional limitations and participation restrictions include eating, yawning, talking, laughing, oral hygiene. Personal factors and/or comorbidities affecting the plan of care include: *Clenching yes; she had mouthguard $3800. she was sleeping only two hours; per night now 4-5 hours; it pushes lowerforward; hrelps with sleep apnea *Bruxism *Leaning on chin no *Biting objects no bilateral chewing *Medium stress level *Nicotine no *Caffeine 0 per day *Sleep position sides Patient presents today for evaluation of a possible temporomandibular disorder. These symptoms are chronic and began with no clear triggering events. Previous consultation include evaluation with her primary care provider. Symptoms are right sided only and aggravated by jaw use and function. The patient is aware of teeth clenching and grinding. Sheri reports that she has worn government guard appliances for many years. She is currently wearing an oral device for PK. She did not bring the appliance with her today. For the last 3 months, Sheri has been experiencing right-sided jaw pain and tmj cracking. She feels like there is fluid in her right ear. 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 Sheri states that in 2016 she slipped and fell on the driveway and sustained a head injury. 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 When she chews she hears grinding in the right ear. It doesn't hurt too much. Increased humidity increases. Jaw opening 43 mm. She hurts right jaw. She does sit with her neck sidebejnt to the left. She had neck surgery 15 years ago; two fused due to arthritis with constant neck ache. She can't turn neck far; limited to the right. Better post surgery. cervical rotation right 57 left 68 following medial pterygoid stm immediate and significant reduction in clicking tmj rotation with masseter stm; she tends to keep her jaw clenched and has difficulty with technique. she may be increasing the compression on the tmju fluid feeling better now ESTEFANÍA Andrews - [facility] 12/03/2020 12:00:28 12/28/2020 text/html HPI Notes: Jaw p ain Reported by patient. Onset: started 3 month(s) ago Location: right; preauricular; ear Quality: dull; aching; sore; shooting; sharp Severity: pain level 0-3/10; radiating to ear Duration and frequency constant Context: clenching; bruxism; chews hard/crunchy/chewy foods Aggravating/contributi on factors: grinding teeth; clenching the teeth; yawning; wide mouth opening Alleviating Factors: acetaminophen; ice; splint therapy Associated Symptoms: jaw clicking right; jaw popping right; tooth pain Prior Tests: CT maxillofacial; MRI Prior opinion primary care provider Patient presents today for follow-up. They report jaw symptoms which are unchanged since the previous visit. Symptoms and pertinent information along with prior data was reviewed, updated and documented in the patient history of present illness. Patient rates the pain intensity as 7 on a scale of 0 to 10. Patient is engaged in active treatment at this time. Sheri states that she has had one session of p/t with Juan. 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 She had tried CPAP previously but almost choked myself to twice. She has been waking up with pain on the right side of her jaw and ear at night, so she will remove her MAD and put in an old maxillary splint. Last week she had severe ear pain and was placed on antibiotics for 4 days and her pain resolved. She stated that the pain has started returning. She saw her dentist this morning who stated that she did not have any dental pathology. Sheri stated that her teeth are always touching together. She has been working on home p/t exercises which has helped her muscles feel less tight. Sheri's is in the hospital because he had surgery to remove half of his colon. ESTEFANÍA Ball - [facility] 12/28/2020 15:22:56 12/28/2020 text/html HPI Notes: Jaw p ain Reported by patient. Onset: started 3 month(s) ago Location: right; preauricular; ear Quality: dull; aching; sore; shooting; sharp Severity: pain level 0-3/10; radiating to ear Duration and frequency constant Context: clenching; bruxism; chews hard/crunchy/chewy foods Aggravating/contributi on factors: grinding teeth; clenching the teeth; yawning; wide mouth opening Alleviating Factors: acetaminophen; ice; splint therapy Associated Symptoms: jaw clicking right; jaw popping right; tooth pain Prior Tests: CT maxillofacial; MRI Prior opinion primary care provider Personal factors and/or comorbidities affecting the plan of care include . Functional limitations and participation restrictions include . Patient presents today for PT evaluation regarding jaw pain. Symptoms began with trauma. Functional limitations and participation restrictions include eating, yawning, talking, laughing, oral hygiene. Personal factors and/or comorbidities affecting the plan of care include: *Clenching yes; she had mouthguard $[id number]. she was sleeping only two hours; per night now 4-5 hours; it pushes lowerforward; hrelps with sleep apnea *Bruxism *Leaning on chin no *Biting objects no bilateral chewing *Medium stress level *Nicotine no *Caffeine 0 per day *Sleep position sides Patient presents today for evaluation of a possible temporomandibular disorder. These symptoms are chronic and began with no clear triggering events. Previous consultation include evaluation with her primary care provider. Symptoms are right sided only and aggravated by jaw use and function. The patient is aware of teeth clenching and grinding. Sheri reports that she has worn government guard appliances for many years. She is currently wearing an oral device for PK. She did not bring the appliance with her today. For the last 3 months, Sheri has been experiencing right-sided jaw pain and tmj cracking. She feels like there is fluid in her right ear. 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 Sheri states that in 2017 she slipped and fell on the driveway and sustained a head injury. 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 When she chews she hears grinding in the right ear. It doesn't hurt too much. Increased humidity increases. Jaw opening 43 mm. She hurts right jaw. She does sit with her neck sidebent to the left. She had neck surgery 15 years ago; two fused due to arthritis with constant neck ache. She can't turn neck far; limited to the right. Better post surgery. cervical rotation right 57 left 68 following medial pterygoid stm immediate and significant reduction in clicking tmj rotation with masseter stm; she tends to keep her jaw clenched and has difficulty with technique. she may be increasing the compression on the tmj fluid feeling better now 6 She was on antibiotics for ear infections ear pain is still sore; she took two Tylenol for the problem after went home from dentist. She checked with dentist. jaw opening 51 mm cervical rotation left 68, right 63 Reviewed the SCM technique with her; she needed to use opposite hand to do the SCM STM. because of her previous surgey she is to go very gently and do no forcible range of motion. When doing the tmj rotation she is to make sure her jaw doesn't start to close before she reacjhes end range with hands gleaving the jaw. She is overall doing good technique. The medial pterygoid is to be done with single finger, sliding versus circular STM ESTEFANÍA Andrews - [facility] 12/31/2020 18:23:22 OBGyn Episode No OBEpisode recorded.
--- OUTSIDE RECORDS SUMMARY | 2024-02-15 12:33 | XMS_ITS | Continuity of Care Document ---
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 Role Phone Marc Coulter MD Unavailable Unavailable Allergies, Adverse Reactions, Alerts Substance Reaction Status Criticality Sulfa (Sulfonamide Antibiotics) Swelling Active No Information Penicillins Anaphylaxis Active No Information Medications Medication Instructions Dosage Effective Dates (start - stop) Status Comments prednisone 2.5 mg tablet Take 2 tablets by mouth once daily - Active methotrexate sodium 2.5 mg tablet take 6 Tablet by oral route every week 15 MG - Active folic acid 1 mg tablet take 1 tablet by oral route every morning 1 MG - Active Vitamin D2 1,250 mcg (50,000 unit) capsule take 1 capsule by oral route every week x 4 months - Active Orencia (with maltose) 250 mg intravenous solution infuse ( ) by intravenous route every ( ) weeks over - Active Celebrex 200 mg capsule Take 1 capsule 2 times daily - Active estradiol 2 mg tablet take 1 tablet by oral route every day 2 MG - Active gabapentin 300 mg capsule take 1 capsule by oral route 2 times every day 300 MG - Active Ambien 5 mg tablet take 1 Tablet by oral route every day 5 MG - Active vitamin E 400 unit Cap take 1 tablet daily - Active vitamin A 10,000 unit Cap take 1 capsule ([id number]) by oral route every day 93313 UNITS - Active multivitamin Cap take 1 capsule by oral route every day - Active glucosamine-chondro itin 500 mg-400 mg Cap take one tab three times a day - Active Sandra 180 mg Tab take 1 tablet (180MG) by oral route every day - Active Flexeril 10 mg Tab take 1 tablet (10MG) by oral route three times a day - Active Zocor 80 mg Tab take 1 tablet daily - Active Vicodin 5 mg-500 mg Tab take 1 tablet by oral route every 4 hours as needed for pain - Active triamterene-hydroch lorothiazide 37.5 mg-25 mg Tab take 1 tablet by oral route every day 1.00 tablet - Active Lasix 40 mg Tab take 1 tablet (40MG) by oral route every day 40 MG - Active potassium chloride ER 10 mEq Tab take 2 tablet (20MEQ) by oral route every day with food 20 MEQ - Active Cymbalta 20 mg Capsule, delayed release take 1 capsule (20MG) by oral route 3 times every day 20 MG - Active amitriptyline 25 mg Tab take 1 tablet (25MG) by oral route every day at bedtime 25 MG - Active predniSONE 2.5 MG Oral Tablet Take 2 tablets by mouth once daily - No Longer Active folic acid 1 mg tablet take 1 tablet by oral route every morning 1 MG - No Longer Active methotrexate sodium 2.5 mg tablet take 6 Tablet by oral route every week 15 MG - No Longer Active Procedures Procedure Date Office/Outpatient Visit, Est Complex e/m visit add on Orencia Abatacept Chemo, Iv Infusion, 1 Hr Orencia Abatacept Chemo, Iv Infusion, 1 Hr Orencia Abatacept Chemo, Iv Infusion, 1 Hr Orencia Abatacept Chemo, Iv Infusion, 1 Hr Office/Outpatient Visit, Est Routine Venipuncture Rbc Sed Rate, Automated Assay Of Serum Albumin Assay Of Creatinine Transferase (Ast) (Sgot) Alanine Amino (Alt) (Sgpt) CReactive Protein Complete Cbc, Automated Orencia Abatacept Chemo, Iv Infusion, 1 Hr Orencia Abatacept Chemo, Iv Infusion, 1 Hr Office/Outpatient Visit, Est Routine Venipuncture Rbc Sed Rate, Automated Assay Of Serum Albumin Assay Of Creatinine Transferase (Ast) (Sgot) Alanine Amino (Alt) (Sgpt) CReactive Protein Complete Cbc, Automated Orencia Abatacept Chemo, Iv Infusion, 1 Hr Orencia Abatacept Chemo, Iv Infusion, 1 Hr Orencia Abatacept Chemo, Iv Infusion, 1 Hr Orencia Abatacept Chemo, Iv Infusion, 1 Hr Office/Outpatient Visit, Est Routine Venipuncture Specimen Handling Rbc Sed Rate, Automated Assay Of Serum Albumin Assay Of Creatinine Transferase (Ast) (Sgot) Alanine Amino (Alt) (Sgpt) CReactive Protein Tb Test, Cell Immun Measure Complete Cbc, Automated Orencia Abatacept Chemo, Iv [...] Diagnoses Date Provider Providers Copied on Encounter Office/Outpa tient Visit, Est [facility] , [address], [place], [address], [place] tel:[phone] [facility] , Rheumatoid arthritis (chief complaint) Seronegative RAPolyosteoa rthritis, unspecifiedS icca syndrome, unspecifiedE levated liver enzymesCommunity Health lingHigh risk medication monitoring 4 Yfn Tran. [facility] [address], [place], [address], [place]. tel:[phone] Referring Provider: Marc Isaac, [facility] [address], [place], [address]. tel:[phone] [facility] , [address], [place], [address], [place] tel:[phone] [facility] No Information 4 Yfn Tran. [facility] [address], [place], [address], [place]. tel:[phone] [facility] , [address], [place], [address], [place] tel:[phone] [facility] , No Information 4 Gary Soria Eva. [address], [place], [address], [place]. tel:[phone] Referring Provider: Eva Price, [address], [place], [address]. tel:[phone] [facility] , [address], [place], [address], [place] tel:[phone] [facility] , No Information 4 Henry Ordoñez. [facility] [address], [place], [address], [place]. tel:[phone] Referring Provider: Smita Price, [facility] [address], [place], [address]. tel:[phone] [facility] , [address], [place], [address], [place] tel:[phone] [facility] , No Information 4 Tucker Fernando. [facility] [address], [place], [address], [place]. tel:[phone] Referring Provider: Abdullahi Loza, [facility] [address], [place], [address]. tel:[phone] [facility] , [address], [place], [address], [place] tel:[phone] [facility] , No Information 4 Yfn Tran. [facility] [address], [place], [address], [place]. tel:[phone] Referring Provider: Marc Isaac, [facility] [address], [place], [address]. tel:[phone] Office/Outpa tient Visit, Est [facility] , [address], [place], [address], [place] tel:[phone] [facility] , Rheumatoid arthritis (chief complaint) Seronegative RAPolyosteoa rthritis, unspecifiedS icca syndrome, unspecifiedE levated liver enzymesArizona Spine And Joint Hospitale [facility] lingHigh risk medication monitoring 4 Yfn Tran. [facility] [address], [place], [address], [place]. tel:[phone] Referring Provider: Marc Isaac, [facility] [address], [place], [address]. tel:[phone] [facility] , [address], [place], [address], [place] tel:[phone] [facility] , No Information 4 Yfn Tran. [facility] [address], [place], [address], [place]. tel:[phone] Referring Provider: Marc Isaac, [facility] [address], [place], [address]. tel:[phone] [facility] , [address], [place], [address], [place] tel:[phone] [facility] , No Information 4 Yfn Tran. [facility] [address], [place], [address], [place]. tel:[phone] Referring Provider: Marc Isaac, [facility] [address], [place], [address]. tel:[phone] Office/Outpa tient Visit, Est [facility] , [address], [place], [address], [place] tel:[phone] [facility] , Rheumatoid arthritis (chief complaint) Seronegative RAPolyosteoa rthritis, unspecifiedS icca syndrome, unspecifiedE levated liver enzymesArizona Spine And Joint Hospitale [facility] lingHigh risk medication monitoring 4 Yfn Tran. [facility] [address], [place], [address], [place]. tel:[phone] Referring Provider: Marc Isaac, [facility] [address], [place], [address]. tel:[phone] [facility] , [address], [place], [address], [place] tel:[phone] [facility] , No Information 3 Yfn Tran. [facility] [address], [place], [address], [place]. tel:[phone] Referring Provider: Marc Isaac, [facility] [address], [place], [address]. tel:[phone] [facility] , [address], [place], [address], [place] tel:[phone] [facility] , No Information 3 Yfn Tran. [facility] [address], [place], [address], [place]. tel:[phone] Referring Provider: Marc Isaac, [facility] [address], [place], [address]. tel:[phone] [facility] , [address], [place], [address], [place] tel:[phone] [facility] , No Information 3 Gary Miranda. [facility] [address], [place], [address], [place]. tel:[phone] Referring Provider: Ruben Isaac, [facility] [address], [place], [address]. tel:[phone] [facility] , [address], [place], [address], [place] tel:[phone] [facility] , No Information 3 Yfn Tran. [facility] [address], [place], [address], [place]. tel:[phone] Referring Provider: Marc Isaac, [facility] [address], [place], [address]. tel:[phone] Office/Outpa tient Visit, Est [facility] , [address], [place], [address], [place] tel:[phone] [facility] , Rheumatoid arthritis (chief complaint) Seronegative RAPolyosteoa rthritis, unspecifiedS icca syndrome, unspecifiedE levated liver enzymesArizona Spine And Joint Hospitale [facility] risk medication monitoring 3 Yfn Tran. [facility] [address], [place], [address], [place]. tel:[phone] Referring Provider: Marc Isaac, [facility] [address], [place], [address]. tel:[phone] [facility] , [address], [place], [address], [place] tel:[phone] [facility] , No Information 3 Grant Boyd. [address], [address], [place], [address], [place]. tel:[phone] Referring Provider: Deb Burns, [address], [place], [address]. tel:[phone] [facility] , [address], [place], [address], [place] tel:[phone] [facility] , No Information 3 Yfn Tran. [facility] [address], [place], [address], [place]. tel:[phone] Referring Provider: Marc Isaac, [facility] [address], [place], [address]. tel:[phone] [facility] , [address], [place], [address], [place] tel:[phone] [facility] , No Information 3 Yfn Tran. [facility] [address], [place], [address], [place]. tel:[phone] Referring Provider: Marc Isaac, [facility] [address], [place], [address]. tel:[phone] [facility] , [address], [place], [address], [place] tel:[phone] [facility] , No Information 3 Yfn Tran. [facility] [address], [place], [address], [place]. tel:[phone] Referring Provider: Marc Isaac, [facility] [address], [place], [address]. tel:[phone] Office/Outpa tient Visit, Est [facility] , [address], [place], [address], [place] tel:[phone] [facility] , Rheumatoid arthritis (chief complaint) Seronegative RAPolyosteoa rthritis, unspecifiedS icca syndrome, unspecifiedE levated liver enzymesBone healthCounse lingHigh risk medication monitoring 3 Yfn Tran. [facility] [address], [place], [address], [place]. tel:[phone] Referring Provider: Marc Isaac, [facility] [address], [place], [address]. tel:[phone] [facility] , [address], [place], [address], [place] tel:[phone] [facility] , No Information 3 Yfn Tran. [facility] [address], [place], [address], [place]. tel:[phone] Referring Provider: Marc Isaac, [facility] [address], [place], [address]. tel:[phone] [facility] , [address], [place], [address], [place] tel:[phone] [facility] , No Information 3 Yfn Tran. [facility] [address], [place], [address], [place]. tel:[phone] Referring Provider: Marc Isaac, [facility] [address], [place], [address]. tel:[phone] [facility] , [address], [place], [address], [place] tel:[phone] [facility] , No Information 3 Yfn Tran. [facility] [address], [place], [address], [place]. tel:[phone] Referring Provider: Marc Isaac, [facility] [address], [place], [address]. tel:[phone] [facility] , [address], [place], [address], [place] tel:[phone] [facility] , No Information 2 Skemp Ruben. [facility] [address], [place], [address], [place]. tel:[phone] Referring Provider: Ruben Vega A, [facility] [address], [place], [address]. tel:[phone] Office/Outpa tient Visit, Est [facility] , [address], [place], [address], [place] tel:[phone] [facility] , Rheumatoid arthritis (chief complaint) Seronegative RAPolyosteoa rthritis, unspecifiedS icca syndrome, unspecifiedE levated liver enzymesBone healthCounse lingHigh risk medication monitoring 2 Yfn Tran. [facility] [address], [place], [address], [place]. tel:[phone] Referring Provider: Marc Isaac, [facility] [address], [place], [address]. tel:[phone] [facility] , [address], [place], [address], [place] tel:[phone] [facility] , No Information 2 Tucker Fernando. [facility] [address], [place], [address], [place]. tel:[phone] Referring Provider: Abdullahi Loza, [facility] [address], [place], [address]. tel:[phone] Office/Outpa tient Visit, Est [facility] , [address], [place], [address], [place] tel:[phone] [facility] , Rheumatoid arthritis (chief complaint) Seronegative RAPolyosteoa rthritis, unspecifiedS icca syndrome, unspecifiedE levated liver enzymesBone healthCounse lingHigh risk medication monitoring 2 Yfn Tran. [facility] [address], [place], [address], [place]. tel:[phone] Referring Provider: Marc Isaac, [facility] [address], [place], [address]. tel:[phone] [facility] , [address], [place], [address], [place] tel:[phone] [facility] , No Information 2 Gary Miranda. [facility] [address], [place], [address], [place]. tel:[phone] Referring Provider: Ruben Isaac, [facility] [address], [place], [address]. tel:[phone] [facility] , [address], [place], [address], [place] tel:[phone] [facility] , No Information 2 Yfn Tran. [facility] [address], [place], [address], [place]. tel:[phone] Referring Provider: Marc Isaac, [facility] [address], [place], [address]. tel:[phone] [facility] , [address], [place], [address], [place] tel:[phone] [facility] , No Information 2 Yfn Tran. [facility] [address], [place], [address], [place]. tel:[phone] Referring Provider: Marc Isaac, [facility] [address], [place], [address]. tel:[phone] [facility] , [address], [place], [address], [place] tel:[phone] [facility] , No Information 2 Yfn Tran. [facility] [address], [place], [address], [place]. tel:[phone] Referring Provider: Marc Isaac, [facility] [address], [place], [address]. tel:[phone] [facility] , [address], [place], [address], [place] tel:[phone] [facility] , No Information 1 Gary Miranda. [facility] [address], [place], [address], [place]. tel:[phone] Referring Provider: Ruben Isaac, [facility] [address], [place], [address]. tel:[phone] Office/Outpa tient Visit, Est [facility] , [address], [place], [address], [place] tel:[phone] [facility] , Rheumatoid arthritis (chief complaint) Seronegative RAPolyosteoa rthritis, unspecifiedS icca syndrome, unspecifiedE levated liver enzymesBone healthCounse lingHigh risk medication monitoring 1 Yfn Tran. [facility] [address], [place], [address], [place]. tel:[phone] Referring Provider: Marc Isaac, [facility] [address], [place], [address]. tel:[phone] [facility] , [address], [place], [address], [place] tel:[phone] [facility] , No Information 1 Yfn Tran. [facility] [address], [place], [address], [place]. tel:[phone] Referring Provider: Marc Isaac, [facility] [address], [place], [address]. tel:[phone] [facility] , [address], [place], [address], [place] tel:[phone] [facility] , No Information 1 Yfn Tran. [facility] [address], [place], [address], [place]. tel:[phone] Referring Provider: Marc Isaac, [facility] [address], [place], [address]. tel:[phone] [facility] , [address], [place], [address], [place] tel:[phone] [facility] , No Information 1 Yfn Tran. [facility] [address], [place], [address], [place]. tel:[phone] Referring Provider: Marc Isaac, [facility] [address], [place], [address]. tel:[phone] Office/Outpa tient Visit, Est [facility] , [address], [place], [address], [place] tel:[phone] [facility] , Rheumatoid arthritis (chief complaint) Seronegative RAPolyosteoa rthritis, unspecifiedS icca syndrome, unspecifiedE levated liver enzymesArizona Spine And Joint Hospitale [facility] risk medication monitoring 1 Yfn Tran. [facility] [address], [place], [address], [place]. tel:[phone] Referring Provider: Marc Isaac, [facility] [address], [place], [address]. tel:[phone] [facility] , [address], [place], [address], [place] tel:[phone] [facility] , No Information 1 Yfn Tran. [facility] [address], [place], [address], [place]. tel:[phone] Referring Provider: Marc Isaac, [facility] [address], [place], [address]. tel:[phone] [facility] , [address], [place], [address], [place] tel:[phone] [facility] , No Information 1 Yfn Tran. [facility] [address], [place], [address], [place]. tel:[phone] Referring Provider: Marc Isaac, [facility] [address], [place], [address]. tel:[phone] [facility] , [address], [place], [address], [place] tel:[phone] [facility] , No Information 1 Yfn Tran. [facility] [address], [place], [address], [place]. tel:[phone] Referring Provider: Marc Isaac, [facility] [address], [place], [address]. tel:[phone] [facility] , [address], [place], [address], [place] tel:[phone] [facility] , No Information 1 Yfn Tran. [facility] [address], [place], [address], [place]. tel:[phone] Referring Provider: Marc Isaac, [facility] [address], [place], [address]. tel:[phone] Office/Outpa tient Visit, [facility] , [address], [place], [address], [place] tel:[phone] [facility] , Rheumatoid arthritis (chief complaint) Seronegative RAPolyosteoa rthritis, unspecifiedS icca syndrome, unspecifiedE levated liver enzymesBone healthCocarrie tingley hospitale lingHigh risk medication monitoringFa tigue 1 Yfn Tran. [facility] [address], [place], [address], [place]. tel:[phone] Referring Provider: Marc Isaac, [facility] [address], [place], [address]. tel:[phone] [facility] , [address], [place], [address], [place] tel:[phone] [facility] , No Information 1 Yfn Tran. [facility] , [facility] [address], [place], [address], [place]. tel:[phone] Referring Provider: Marc Isaac, [facility], [facility] [address], [place], [address]. tel:[phone] [facility] , [address], [place], [address], [place] tel:[phone] [facility] , No Information 1 Yfn Tran. [facility] , [facility] [address], [place], [address], [place]. tel:[phone] Referring Provider: Marc Isaac, [facility], [facility] [address], [place], [address]. tel:[phone] Office/Outpa tient Visit, [facility] , [address], [place], [address], [place] tel:[phone] [facility] , Rheumatoid arthritis (chief complaint) Seronegative RAPolyosteoa rthritis, unspecifiedS icca syndrome, unspecifiedE levated liver enzymesArizona Spine And [facility] Hospitale [facility] risk medication monitoring 1 Yfn Tran. [facility] , [facility] [address], [place], [address], [place]. tel:[phone] Referring Provider: Marc Isaac, [facility], [facility] [address], [place], [address]. tel:[phone] [facility] , [address], [place], [address], [place] tel:[phone] [facility] , No Information 1 Yfn Tran. [facility] , [facility] [address], [place], [address], [place]. tel:[phone] Referring Provider: Marc Isaac, [facility], [facility] [address], [place], [address]. tel:[phone] [facility] , [address], [place], [address], [place] tel:[phone] [facility] , No Information 0 Td Gonzalez. [facility] , [facility] [address], [place], [address], [place]. tel:[phone] Referring Provider: Lisa Price, [facility] [address], [place], [address]. tel:[phone] [facility] , [address], [place], [address], [place] tel:[phone] [facility] , No Information 0 Yfn Tran. [facility] , [facility] [address], [place], [address], [place]. tel:[phone] Referring Provider: Marc Isaac, [facility], [facility] [address], [place], [address]. tel:[phone] Office/Outpa tient Visit, [facility] , [address], [place], [address], [place] tel:[phone] Telehealth Rheumatoid arthritis (chief complaint) CounselingSe ronegative RAPolyosteoa rthritis, unspecifiedS icca syndrome, unspecifiedE levated liver enzymesBone healthHigh risk medication monitoring 0 Yfn Tran. [facility] , [facility] [address], [place], [address], [place]. tel:[phone] Referring Provider: Marc Isaac, [facility], [facility] [address], [place], [address]. tel:[phone] [facility] , [address], [place], [address], [place] tel:[phone] [facility] , No Information 0 Yfn Tran. [facility] , [facility] [address], [place], [address], [place]. tel:[phone] Referring Provider: Marc Isaac, [facility], [facility] [address], [place], [address]. tel:[phone] Office/Outpa tient Visit, [facility] , [address], [place], [address], [place] tel:[phone] [facility] , Rheumatoid arthritis (chief complaint) Seronegative RAPolyosteoa rthritis, unspecifiedS icca syndrome, unspecifiedE levated liver enzymesBone healthHigh risk medication monitoringLo w back painCounseli ng 0 Yfn Tran. [facility] , [facility] [address], [place], [address], [place]. tel:[phone] Referring Provider: Marc Yfn A, [facility], [facility] [address], [place], [address]. tel:[phone] [facility] , [address], [place], [address], [place] tel:[phone] [facility] , No Information 0 Yfn Tran. [facility] , [facility] [address], [place], [address], [place]. tel:[phone] Referring Provider: Marc Isaac, [facility], [facility] [address], [place], [address]. tel:[phone] [facility] , [address], [place], [address], [place] tel:[phone] [facility] , No Information 0 Yfn Tran. [facility] , [facility] [address], [place], [address], [place]. tel:[phone] Referring Provider: Marc Isaac, [facility], [facility] [address], [place], [address]. tel:[phone] [facility] , [address], [place], [address], [place] tel:[phone] [facility] , No Information 0 Yfn Tran. [facility] , [facility] [address], [place], [address], [place]. tel:[phone] Referring Provider: Marc Isaac, [facility], [facility] [address], [place], [address]. tel:[phone] Office/Outpa tient Visit, [facility] , [address], [place], [address], [place] tel:[phone] [facility] , Rheumatoid arthritis (chief complaint) Seronegative RAPolyosteoa rthritis, unspecifiedS icca syndrome, unspecifiedE levated liver enzymesBone healthHigh risk medication monitoringLo w back pain 0 Yfn Tran. [facility] , [facility] [address], [place], [address], [place]. tel:[phone] Referring Provider: Marc Isaac, [facility], [facility] [address], [place], [address]. tel:[phone] [facility] , [address], [place], [address], [place] tel:[phone] [facility] , No Information 0 Yfn Tran. [facility] , [facility] [address], [place], [address], [place]. tel:[phone] Referring Provider: Marc Isaac, [facility], [facility] [address], [place], [address]. tel:[phone] [facility] , [address], [place], [address], [place] tel:[phone] [facility] , No Information 0 Yfn Tran. [facility] , [facility] [address], [place], [address], [place]. tel:[phone] Referring Provider: Marc Isaac, [facility], [facility] [address], [place], [address]. tel:[phone] Office/Outpa tient Visit, [facility] , [address], [place], [address], [place] tel:[phone] [facility] , Rheumatoid arthritis (chief complaint) Seronegative RAPolyosteoa rthritis, unspecifiedS icca syndrome, unspecifiedE levated liver enzymesBone healthHigh risk medication monitoring 0 Yfn Tran. [facility] , [facility] [address], [place], [address], [place]. tel:[phone] Referring Provider: Marc Isaac, [facility] [address], [place], [address]. tel:[phone] [facility] , [address], [place], [address], [place] tel:[phone] [facility] , No Information Yfn Tran. [facility] , [facility] [address], [place], [address], [place]. tel:[phone] Referring Provider: Marc Isaac, [facility] [address], [place], [address]. tel:[phone] Office/Outpa tient Visit, [facility] , [address], [place], [address], [place] tel:[phone] [facility] , Rheumatoid arthritis (chief complaint) Seronegative RAPolyosteoa rthritis, unspecifiedS icca syndrome, unspecifiedE levated liver enzymesBone healthHigh risk medication monitoring 9 Yfn Tran. [facility] , [facility] [address], [place], [address], [place]. tel:[phone] Referring Provider: Marc Isaac, [facility], [facility] [address], [place], [address]. tel:[phone] [facility] , [address], [place], [address], [place] tel:[phone] [facility] , No Information Yfn Marc. [facility] , [facility] [address], [place], [address], [place]. tel:[phone] Referring Provider: Marc Isaac, [facility], [facility] [address], [place], [address]. tel:[phone] [facility] , [address], [place], [address], [place] tel:[phone] [facility] , No Information Yfn Marc. [facility] , [facility] [address], [place], [address], [place]. tel:[phone] Referring Provider: Marc Isaac, [facility], [facility] [address], [place], [address]. tel:[phone] Office/Outpa tient Visit, [facility] , [address], [place], [address], [place] tel:[phone] [facility] , Rheumatoid arthritis (chief complaint) Seronegative RAPolyosteoa rthritis, unspecifiedS icca syndrome, unspecifiedE levated liver enzymesBone healthHigh risk medication monitoring Yfnlamonte Tran. [facility] , [facility] [address], [place], [address], [place]. tel:[phone] Referring Provider: Marc Isaac, [facility], [facility] [address], [place], [address]. tel:[phone] [facility] , [address], [place], [address], [place] tel:[phone] [facility] , No Information Gary Miranda. [facility] , [facility] [address], [place], [address], [place]. tel:[phone] Referring Provider: Ruben Isaac, [facility], [facility] [address], [place], [address]. tel:[phone] [facility] , [address], [place], [address], [place] tel:[phone] [facility] , No Information Yfn Tran. [facility] , [facility] [address], [place], [address], [place]. tel:[phone] Referring Provider: Marc Isaac, [facility], [facility] [address], [place], [address]. tel:[phone] Office/Outpa tient Visit, [facility] , [address], [place], [address], [place] tel:[phone] [facility] , Rheumatoid arthritis (chief complaint) Seronegative RAPolyosteoa rthritis, unspecifiedS icca syndrome, unspecifiedE levated liver enzymesBone healthHigh risk medication monitoringTe ndinitis Yfn Tran. [facility] , [facility] [address], [place], [address], [place]. tel:[phone] Referring Provider: Marc Isaac, [facility] [address], [place], [address]. tel:[phone] [facility] , [address], [place], [address], [place] tel:[phone] [facility] , No Information 9 Sharlene Russell. [facility] , [facility] [address], [place], [address], [place]. tel:[phone] Referring Provider: Drew Hdez, [facility] [address], [place], [address]. tel:[phone] Office/Outpa tient Visit, Est [facility] , [address], [place], [address], [place] tel:[phone] [facility] , Rheumatoid arthritis (chief complaint) Seronegative RAPolyosteoa rthritis, unspecifiedS icca syndrome, unspecifiedE levated liver enzymesBone [facility] risk medication monitoring 8 Yfn Tran. [facility] , [facility] [address], [place], [address], [place]. tel:[phone] Referring Provider: Marc Isaac, [facility], [facility] [address], [place], [address]. tel:[phone] [facility] , [address], [place], [address], [place] tel:[phone] [facility] , No Information 8 Yfn Tran. [facility] , [facility] [address], [place], [address], [place]. tel:[phone] Referring Provider: Marc Isaac, [facility] [address], [place], [address]. tel:[phone] Office/Outpa tient Visit, Est [facility] , [address], [place], [address], [place] tel:[phone] [facility] , Rheumatoid arthritis (chief complaint) Seronegative RAPolyosteoa rthritis, unspecifiedS icca syndrome, unspecifiedE levated liver enzymesBone healthHigh risk medication monitoring 8 Yfn Tran. [facility] , [facility] [address], [place], [address], [place]. tel:[phone] Referring Provider: Marc Isaac, [facility] [address], [place], [address]. tel:[phone] [facility] , [address], [place], [address], [place] tel:[phone] [facility] , Seronegative RA 8 Gary Miranda. [facility] , [facility] [address], [place], [address], [place]. tel:[phone] Referring Provider: Ruben Isaac, [facility] [address], [place], [address]. tel:[phone] Office/Outpa tient Visit, [facility] , [address], [place], [address], [place] tel:[phone] [facility] , Rheumatoid arthritis (chief complaint) Seronegative RAPolyosteoa rthritis, unspecifiedS icca syndrome, unspecifiedE levated liver enzymesBone healthHigh risk medication monitoring 8 Yfn Marc. [facility] , [facility] [address], [place], [address], [place]. tel:[phone] Referring Provider: Marc Isaac, [facility] [address], [place], [address]. tel:[phone] [facility] , [address], [place], [address], [place] tel:[phone] [facility] , Seronegative RA 8 [facility] Marc. [facility] , [facility] [address], [place], [address], [place]. tel:[phone] Referring Provider: Marc Isaac, [facility] [address], [place], [address]. tel:[phone] Office/Outpa tient Visit, [facility] , [address], [place], [address], [place] tel:[phone] [facility] , Rheumatoid arthritis (chief complaint) Seronegative RAPolyosteoa rthritis, unspecifiedS icca syndrome, unspecifiedE levated liver enzymesBone [facility] risk medication monitoring 8 [facility] Marc. [facility] , [facility] [address], [place], [address], [place]. tel:[phone] Referring Provider: Marc Isaac, [facility] [address], [place], [address]. tel:[phone] [facility] , [address], [place], [address], [place] tel:[phone] [facility] , Seronegative RA 8 Ynf Marc. [facility] , [facility] [address], [place], [address], [place]. tel:[phone] Referring Provider: Marc Isaac, [facility] [address], [place], [address]. tel:[phone] [facility] , [address], [place], [address], [place] tel:[phone] [facility] , Seronegative RA 8 Yfn Marc. [facility] , [facility] [address], [place], [address], [place]. tel:[phone] Referring Provider: Marc Isaac, [facility] [address], [place], [address]. tel:[phone] [facility] , [address], [place], [address], [place] tel:[phone] [facility] , Seronegative RA 7 Yfn Marc. [facility] , [facility] [address], [place], [address], [place]. tel:[phone] Referring Provider: Marc Isaac, [facility] [address], [place], [address]. tel:[phone] Office/Outpa tient Visit, Est [facility] , [address], [place], [address], [place] tel:[phone] [facility] , Rheumatoid arthritis (chief complaint) Seronegative RAPolyosteoa rthritis, unspecifiedS icca syndrome, unspecifiedE levated liver enzymesBone healthHigh risk medication monitoring Yfn Tran. [facility] , [facility] [address], [place], [address], [place]. tel:[phone] Referring Provider: Marc Isaac, [facility] [address], [place], [address]. tel:[phone] Office/Outpa tient Visit, Est [facility] , [address], [place], [address], [place] tel:[phone] [facility] , Rheumatoid arthritis (chief complaint) Seronegative RAPolyosteoa rthritis, unspecifiedS icca syndrome, unspecifiedE levated liver enzymesBone healthHigh risk medication monitoring Yfn Tran. [facility] , [facility] [address], [place], [address], [place]. tel:[phone] Referring Provider: Marc Isaac, [facility] [address], [place], [address]. tel:[phone] [facility] , [address], [place], [address], [place] tel:[phone] [facility] , No Information Yfn Tran. [facility] , [facility] [address], [place], [address], [place]. tel:[phone] Referring Provider: Marc Isaac, [facility] [address], [place], [address]. tel:[phone] [facility] , [address], [place], [address], [place] tel:[phone] [facility] , Seronegative RA 7 Sharlene Russell. [facility] , [facility] [address], [place], [address], [place]. tel:[phone] Referring Provider: Drew Hdez, [facility] [address], [place], [address]. [phone] Office/Outpa tient Visit, Est [facility] , [address], [place], [address], [place] tel:[phone] [facility] , Rheumatoid arthritis (chief complaint) Seronegative RAPolyosteoa rthritis, unspecifiedS icca syndrome, unspecifiedB one healthHigh risk medication monitoringEl evated liver enzymes Yfn Tran. [facility] , [facility] [address], [place], [address], [place]. tel:[phone] Referring Provider: Marc Isaac, [facility] [address], [place], [address]. tel:[phone] [facility] , [address], [place], [address], [place] tel:[phone] [facility] , No Information Yfn Tran. [facility] , [facility] [address], [place], [address], [place]. tel:[phone] Referring Provider: Marc Isaac, [facility] [address], [place], [address]. tel:[phone] [facility] , [address], [place], [address], [place] tel:[phone] [facility] , Seronegative RA Yfn Marc. [facility] , [facility] [address], [place], [address], [place]. tel:[phone] Referring Provider: Marc Isaac, [facility] [address], [place], [address]. tel:[phone] [facility] , [address], [place], [address], [place] tel:[phone] [facility] , No Information Yfn Marc. [facility] [address], [place], [address], [place]. tel:[phone] Referring Provider: Marc Isaac, [facility] [address], [place], [address]. tel:[phone] Office/Outpa tient Visit, Est [facility] , [address], [place], [address], [place] tel:[phone] [facility] , Rheumatoid arthritis (chief complaint) Seronegative RAPolyosteoa rthritis, unspecifiedS icca syndrome, unspecifiedB one healthHigh risk medication monitoring Yfn Tran. [facility] [address], [place], [address], [place]. tel:[phone] Referring Provider: Marc Isaac, [facility] [address], [place], [address]. tel:[phone] [facility] , [address], [place], [address], [place] tel:[phone] [facility] , Seronegative RA 7 Yfn Marc. [facility] , [facility] [address], [place], [address], [place]. tel:[phone] Referring Provider: Marc Isaac, [facility] [address], [place], [address]. tel:[phone] [facility] , [address], [place], [address], [place] tel:[phone] [facility] , Seronegative RA 6 [facility] Marc. [facility] [address], [place], [address], [place]. tel:[phone] Referring Provider: Marc Isaac, [facility] [address], [place], [address]. tel:[phone] [facility] , [address], [place], [address], [place] tel:[phone] [facility] , Seronegative RA 6 Yfngraciela Tran. [facility] , [facility] [address], [place], [address], [place]. tel:[phone] Referring Provider: Marc Isaac, [facility] [address], [place], [address]. tel:[phone] Office/Outpa tient Visit, Est [facility] , [address], [place], [address], [place] tel:[phone] [facility] , Rheumatoid arthritis (chief complaint) Seronegative RAPolyosteoa rthritis, unspecifiedS icca syndrome, unspecifiedH igh risk medication monitoringBo [facility] ed liver enzymes Apr- 6 Yfn Marc. [facility] , [facility] [address], [place], [address], [place]. tel:[phone] Referring Provider: Marc Isaac, [facility] [address], [place], [address]. 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 [facility] , [facility] [address], [place], [address], [place]. tel:[phone] Referring Provider: Marc Isaac, [facility] [address], [place], [address]. tel:[phone] [facility] , [address], [place], [address], [place] tel:[phone] [facility] , Seronegative RA Sep-2 6 [facility] Marc. [facility] , [facility] [address], [place], [address], [place]. tel:[phone] Referring Provider: Marc Isaac, [facility], [facility] [address], [place], [address]. tel:[phone] [facility] , [address], [place], [address], [place] tel:[phone] [facility] , No Information Mar-0 6 [facility] Marc. [facility] , [facility] [address], [place], [address], [place]. tel:[phone] Referring Provider: Marc Isaac, [facility] [address], [place], [address]. tel:[phone] Office/Outpa tient Visit, Est [facility] , [address], [place], [address], [place] tel:[phone] [facility] , Rheumatoid arthritis (chief complaint) Seronegative RAPolyosteoa rthritis, unspecifiedS icca syndrome, unspecifiedH igh risk [facility] 6 Yfn Tran. [facility] , [facility] [address], [place], [address], [place]. tel:[phone] Referring Provider: Marc Isaac, [facility], [facility] [address], [place], [address]. tel:[phone] Office/Outpa tient Visit, Est [facility] , [address], [place], [address], [place] tel:[phone] [facility] , Rheumatoid arthritis (chief complaint) Seronegative RAPolyosteoa rthritis, unspecifiedS icca syndrome, unspecifiedH igh risk medication monitoringC[facility] 6 Yfn Tran. [facility] , [facility] [address], [place], [address], [place]. tel:[phone] Referring Provider: Marc Isaac, [facility] [address], [place], [address]. tel:[phone] Office/Outpa tient Visit, Est [facility] , [address], [place], [address], [place] tel:[phone] [facility] , Rheumatoid arthritis (chief complaint) Seronegative RAPolyosteoa rthritis, unspecifiedS icca syndrome, unspecifiedH igh risk medication monitoringBo [facility] 6 Yfn Tran. [facility] , [facility] [address], [place], [address], [place]. tel:[phone] Referring Provider: Marc Isaac, [facility] [address], [place], [address]. tel:[phone] Office/Outpa tient Visit, Est [facility] , [address], [place], [address], [place] tel:[phone] [facility] , Rheumatoid arthritis (chief complaint) Sicca syndromeRheu matoid ArthritisThe rapeutic Drug MonitoringBo [facility] Yfn Tran. [facility] , [facility] [address], [place], [address], [place]. tel:[phone] Referring Provider: Marc Isaac, [facility] [address], [place], [address]. tel:[phone] Office/Outpa tient Visit, Est [facility] , [address], [place], [address], [place] tel:[phone] [facility] , Rheumatoid arthritis (chief complaint) Rheumatoid ArthritisThe rapeutic Drug MonitoringNovant Health / [facility] Yfn Tran. [facility] , [facility] [address], [place], [address], [place]. tel:[phone] Referring Provider: Marc Isaac, [facility] [address], [place], [address]. tel:[phone] Office/Outpa tient Visit, Est [facility] , [address], [place], [address], [place] tel:[phone] [facility] , Rheumatoid Arthritis (chief complaint) Rheumatoid ArthritisThe rapeutic Drug MonitoringOt her specified counseling 5 Yfn Tran. [facility] , [facility] [address], [place], [address], [place]. tel:[phone] Referring Provider: Marc Isaac, [facility], [facility] [address], [place], [address]. tel:[phone] Office/Outpa tient Visit, Est [facility] , [address], [place], [address], [place] tel:[phone] [facility] , Rheumatoid Arthritis (chief complaint) Rheumatoid ArthritisOth er specified counselingTh erapeutic Drug Monitoring 4 Yfn Tran. [facility] , [facility] [address], [place], [address], [place]. tel:[phone] Referring Provider: Marc Isaac, [facility], [facility] [address], [place], [address]. tel:[phone] Office/Outpa tient Visit, Est [facility] , [address], [place], [address], [place] tel:[phone] [facility] , Rheumatoid Arthritis (chief complaint) Rheumatoid ArthritisOth er specified counselingTh erapeutic Drug MonitoringDi sturbance of salivary secretion 4 Yfn Tran. [facility] , [facility] [address], [place], [address], [place]. tel:[phone] Referring Provider: Marc Isaac, [facility] [address], [place], [address]. tel:[phone] Office/Outpa tient Visit, Est [facility] , [address], [place], [address], [place] tel:[phone] [facility] , Rheumatoid Arthritis (chief complaint) Rheumatoid ArthritisOth er specified counselingTh erapeutic Drug MonitoringMy algia and myositis, unspecified Yfn Tran. [facility] , [facility] [address], [place], [address], [place]. tel:[phone] Referring Provider: Marc Isaac, [facility] [address], [place], [address]. tel:[phone] Office/Outpa tient Visit, Est [facility] , [address], [place], [address], [place] tel:[phone] [facility] , Rheumatoid Arthritis (chief complaint) Rheumatoid ArthritisOth er specified counselingTh erapeutic Drug Monitoring Yfn Tran. [facility] , [facility] [address], [place], [address], [place]. tel:[phone] Referring Provider: Marc Isaac, [facility] [address], [place], [address]. tel:[phone] [facility] , [address], [place], [address], [place] tel:[phone] [facility] , No Information 3 Yfn Tran. [facility] , [facility] [address], [place], [address], [place]. tel:[phone] Referring Provider: Marc Isaac, [facility] [address], [place], [address]. tel:[phone] Office/Outpa tient Visit, Est [facility] , [address], [place], [address], [place] tel:[phone] [facility] , Rheumatoid Arthritis (chief complaint) Rheumatoid ArthritisThe rapeutic Drug MonitoringOt her specified counseling Mar- 3 Yfn Tran. [facility] , [facility] [address], [place], [address], [place]. tel:[phone] Referring Provider: Marc Isaac, [facility] [address], [place], [address]. tel:[phone] [facility] , [address], [place], [address], [place] tel:[phone] [facility] , No Information 3 Yfn Tran. [facility] , [facility] [address], [place], [address], [place]. tel:[phone] Referring Provider: Marc Isaac, [facility], [facility] [address], [place], [address]. tel:[phone] [facility] , [address], [place], [address], [place] tel:[phone] [facility] , No Information 3 Yfn Tran. [facility] , [facility] [address], [place], [address], [place]. tel:[phone] Referring Provider: Marc Isaac, [facility], [facility] [address], [place], [address]. tel:[phone] Office/Outpa tient Visit, Est [facility] , [address], [place], [address], [place] tel:[phone] [facility] , Rheumatoid Arthritis (chief complaint) Rheumatoid ArthritisOth er specified counselingTh erapeutic Drug Monitoring 3 Yfn Tran. [facility] , [facility] [address], [place], [address], [place]. tel:[phone] Referring Provider: Marc Isaac, [facility], [facility] [address], [place], [address]. tel:[phone] Office/Outpa tient Visit, Est [facility] , [address], [place], [address], [place] tel:[phone] [facility] , Rheumatoid Arthritis (chief complaint) Rheumatoid ArthritisThe rapeutic Drug MonitoringMy algia and myositis, unspecifiedO ther specified counseling 3 Yfn Tran. [facility] , [facility] [address], [place], [address], [place]. tel:[phone] Referring Provider: Marc Isaac, [facility], [facility] [address], [place], [address]. tel:[phone] Office/Outpa tient Visit, Est [facility] , [address], [place], [address], [place] tel:[phone] [facility] , Rheumatoid Arthritis (chief complaint) Rheumatoid ArthritisOth er specified counselingTh erapeutic Drug MonitoringMy algia and myositis, unspecified 3 Yfn Tran. [facility] , [facility] [address], [place], [address], [place]. tel:[phone] Referring Provider: Marc Isaac, [facility] [address], [place], [address]. tel:[phone] Office/Outpa tient Visit, Est [facility] , [address], [place], [address], [place] tel:[phone] [facility] , Rheumatoid Arthritis (chief complaint) Rheumatoid ArthritisThe rapeutic Drug MonitoringMy algia and myositis, unspecifiedO ther specified counseling 2 Yfn Tran. [facility] , [facility] [address], [place], [address], [place]. tel:[phone] Referring Provider: Marc Isaac, [facility] [address], [place], [address]. tel:[phone] Office/Outpa tient Visit, Est [facility] , [address], [place], [address], [place] tel:[phone] [facility] , Rheumatoid Arthritis (chief complaint) Rheumatoid ArthritisMya lgia and myositis, unspecifiedT herapeutic Drug MonitoringOt her specified counseling 2 Yfn Tran. [facility] , [facility] [address], [place], [address], [place]. tel:[phone] Referring Provider: Hien Nieves, [facility] [address] [facility] [address], [place], [address]. tel:[phone] Family History Family Member Type Diagnosis Age At Onset sister Problem (finding) Systemic lupus erythema tosis uncle Problem (finding) rheumatoid arthritis Immunizations Vaccine Date Status Comments COVID-19 Pfizer administered Note: 2020 ; Source: Other Provider Payers Payer name Insurance type Covered libertarian ID Samy viramontes(s) Medicare [id number] [facility] [id number] Social History Type Description Quantity Date Captured Comments Alcohol Use Details No Caffeine Use Details Unknown Tobacco Use Status Current non-smoker Smoking Status Never smoker Non-Smoking Tobacco Use Details : No Details Available : No Details Available Sex Female Vital Signs Date / Time: Height Weight BMI Pulse Rate Blood Pressure Temperature Respiratory Rate Body Surface Area Head Circumference Head Circ. Percentile Wt./Kane. Percentile BMI percentile Pulse Ox Inhaled Ox 8:30 AM 65.25 in 88.904 kg (196.00 lbs) 32.3 6 kg/m eter (2) 108/60 mm[Hg] 97.50 F Chief Complaint And Reason For Visit From encounter dated '02/14/2024 09:00'. Rheumatoid arthritis (chief complaint) Reason For Referral Reason For Referral No Information Plan Of Treatment Date Type Action Status Appointment Sheri Brownlee DRUG SWITCH BOOKED Appointment Sheri Brownlee /2 BOOKED Appointment Sheri Brownlee BOOKED History Of [...] arthritis Functional Status Date Functional Assessmen t Pain Score 9/10 Instructions Date Instruction Additional Infor mation No Information Assessments Type Assessment Date assessment Seronegative RA assessment Polyosteoarthritis, unspecified assessment Sicca syndrome, unspecified assessment Elevated liver enzymes assessment Bone health assessment Counseling assessment High risk medication monitoring Patient Care Teams Name Effective Dates (start - stop) Status Members No Information
--- NOTE | 2024-02-15 13:00 | CRLHL7_ITS ---
For Patients: As a result of the Century Cures Act, medical imaging exams and procedure reports are released immediately into your electronic medical record. You may view this report before your referring provider. If you have questions, please contact your health care provider. Indication: Neck pain. Technique: MRI of the cervical spine was performed without the use of intravenous contrast. Comparison: MRI cervical spine 06/14/2018. Findings: Postsurgical changes of ACDF at C5-6. Vertebral body heights appear maintained. Moderate multilevel disc height loss and degeneration. No abnormal cord signal. C2-3: Trace anterolisthesis. Minimal spinal canal narrowing. Mild left neural foraminal narrowing. Right neural foramen appears patent. Stable. C3-4: Grade 1 anterolisthesis. Xfrv-dc-prexqfaj spinal canal narrowing. Moderate neural foraminal narrowing secondary to uncovertebral joint and facet hypertrophy. Progress. C4-5: Trace anterolisthesis. Mild spinal canal narrowing. Mild neural foraminal narrowing secondary to uncovertebral joint and facet hypertrophy. Progressed. C5-6: Postsurgical changes. Minimal spinal canal narrowing. Mild right neural foraminal narrowing. Stable. C6-7: Disc degeneration. Moderate spinal canal narrowing. Moderately severe neural foraminal stenosis secondary to uncovertebral joint and facet hypertrophy. Progressed. C7-T1: Grade 2 anterolisthesis. Severe spinal canal narrowing. Moderately severe neural foraminal stenosis. Progressed. T1-2: Grade 1 anterolisthesis. Mild spinal canal narrowing. Mild right and moderate left neural foraminal narrowing. Progressed. Impression: 1. Postsurgical changes of ACDF C5-6. 2. At C3-4, progressed degeneration with mild to moderate spinal canal and moderate neural foraminal stenosis. 3. At C4-5, progressive degeneration with mild spinal canal and neural foraminal stenosis. 4. At C6-7, progressed degeneration with moderate spinal canal and moderately severe neural foraminal stenosis. 5. At C7-T1, grade 2 anterolisthesis with progressed degeneration resulting in severe spinal canal and moderately severe neural foraminal stenosis. 6. No abnormal cord signal. Dictated by Gianni Louise MD @ 02/16/2024 10:42:12 AM (Electronically Signed)
== END 2024-02-15 12:31 | disposition home or self-care (01) ==
LOC: MRI 12:31
PROVIDERS: PCP Family Medicine; Visit Provider Family Medicine
DX: M54.2 Cervicalgia (principal); M50.31 Other cervical disc degeneration, high cervical region; M50.321 Other cervical disc degeneration at C4-C5 level; M50.323 Other cervical disc degeneration at C6-C7 level; M54.12 Radiculopathy, cervical region
CPT/HCPCS: 72141

== ENCOUNTER 2024-04-04 08:23 | Outpatient (CLI) | payer MEDICARE, BC, SELFPAY ==
--- OUTSIDE RECORDS SUMMARY | 2024-04-04 08:27 | XMS_ITS | Continuity of Care Document ---
Author Organization [facility] Address [address] [place] [address] Phone Care Team Providers Care Line Out Man Name Role Phone Gaye Caal MD Unavailable [...] Active Procedures Procedure Date Office/Outpatient Visit,Est, Mod 2023 X-Ray Exam Of Neck Spine, 4+ Views X-Ray Exam Lower Spine 2-3 Views 2023 Office/Outpatient Visit,Est, Mod 2022 X-Ray Exam Lower [...] Provider Providers Copied on Encounter Office/Outpa tient Visit,Est, Mod [facility], [address], [place], [place], [id number] , [place] tel:[phone] [facility] Spinal stenosis, lumbar region with neurogenic claudicationSpina l stenosis, cervical region Sep- 4 Mehbod Amir. [facility], [address] [place] [address] [address], [place], [place], [id number] , [place]. tel: [phone] Referring Provider: Orlin Bond, [employer] [address], [place], [address]. tel:[phone] Office/Outpa tient Visit,Est, Mod [facility], [address], [place], [place], [address] , [place] tel: [phone] [facility] Encounter for other specified surgical aftercare 3 Mehbod Amir. [facility], [address] [place] [address] [address], [place], [place], [address] , [place]. tel: [phone] Referring Provider: Orlin Bond, [facility] [address], [place], [address]. tel:[phone] Office/Outpa tient Visit,Est, Mod [facility], [address], [place], [place], [address] , [place] tel: [phone] [facility] Encounter for other specified surgical aftercare 2 Mehbod Amir. [facility], [address] [place] [address] [address], [place], [place], [address] , [place]. tel: [phone] Referring Provider: Orlin Bond, [employer] [facility] [address] , [place], [address]. tel:[phone] [facility], [address], [place], [place], [address] , [place] tel: [phone] [facility] Encounter for other specified surgical aftercare 2 Mehbod Amir. [facility], [address] [place] [address] [address], [place], [place], [address] , [place]. tel: [phone] Referring Provider: Luc [facility] [address], [place], [address]. tel:[phone] [facility], [address], [facility], [place], [id number] , [place] tel: [phone] [facility] Encounter for other specified surgical aftercare 2 Mehbod Amir. [facility], [address] [place] [address] [address], [place], [place], [id number] , [place]. tel: [phone] Referring Provider: Orlin Bond, [employer] [address], [place], [address]. tel:[phone] [facility], [address], [facility] [place], [place], [id number] , [place] tel: [phone] [facility] No Information 2 Ecdevin Chow. [address] [place] [address] [address], [facility] [place], [id number] , [place]. tel: [phone] Referring Provider: [facility] [address], [place], [address]. tel:[phone] [facility], [address], [facility] [place], [place], [id number] , [place] tel: [phone] [facility] No Information 2 Mehbod Amir. [facility], [address] [place] [address] [address], [place], [place], [address] , [place]. tel: [phone] Referring Provider: Julio C Phipps [employer] [address] , [place], [address]. tel:[phone] Office/Outpa tient Visit,New, Mod [facility], [address], [facility] [place], [place], [id number] , [place] tel: [phone] [facility] Spinal stenosis, lumbar region with neurogenic claudicationSpond ylolisthesis, lumbar region 2 Mehbod Amir. [facility], [address] [place] [address] [address], [place], [place], [address] , [place]. tel: [phone] Referring Provider: [facility] [employer] [address] [place] [address], [place], [address]. tel:[phone] Family History Family Member Type Diagnosis Age At Onset No Information Payers Payer name Insurance type Covered democrat ID Samy viramontes(s) Medicare SHOLA [id number] [facility] [id number] [facility] [id number] Social History Type Description Quantity Date Captured [...] Percentile BMI percentile Pulse Ox Inhaled Ox 2:05 PM 64.00 in 87.090 kg (192.00 lbs) 32.9 5 kg/m eter (2) Chief Complaint And Reason For Visit No Information Reason For Referral Reason For Referral No Information Plan Of Treatment Date Type Action Status Future Order: Radiology Order MR I-Lumbar (MRILUMBAR), Ordered on: Ordered Future Order: Radiology Order Ep idural Steroid Cervical/Thoracic (EPIDURALCERVTHOR), Ordered on: Ordered Future Order: Radiology Order AP Lateral Lumbar (APLatLumb), Ordered on: Ordered Future Order: Radiology Order Ce rvl 4-5 Views ([id number]), Ordered on: Ordered History Of Present Illness Encounter Date Complaint History Of Prese nt Illness No Information Functional Status Date Functional Assessmen t No Information Instructions Date Instruction Additional Infor mation No Information Assessments Type Assessment Date No Information Patient Care Teams Name Effective Dates (start - stop) Status Members No Information
--- OUTSIDE RECORDS SUMMARY | 2024-04-04 08:28 | XMS_ITS | Continuity of Care Document ---
Author Organization [facility] Address [address] [place] [address] Phone Care Team Providers Care Industrial Designer Name Role Phone Marc Coulter MD Unavailable Unavailable Allergies, Adverse Reactions, Alerts Substance Reaction Status Criticality Sulfa (Sulfonamide Antibiotics) Swelling Active No Information Penicillins Anaphylaxis Active No Information Medications Medication Instructions Dosage Effective Dates (start - stop) Status Comments Simponi ARIA 12.5 mg/mL intravenous solution infuse (2MG/KG) by intravenous route every 8 weeks over 2 MG/KG - Active prednisone 2.5 mg tablet Take 2 tablets [...] every week x 4 months - Active Celebrex 200 mg capsule Take [...] A 10,000 unit Cap take 1 capsule ([id number]) by oral route every day 75231 UNITS - Active vitamin E 400 unit [...] daily - Acti ve Procedures Procedure Date Simponi Aria (golimumab) Chemo, Iv Infusion, 1 Hr Simponi Aria (golimumab) Chemo, Iv Infusion, 1 Hr Office/Outpatient Visit, Est Complex e/m visit add [...] [facility]ants , [address], [place], [address], [place] tel:[phone] [facility] , No Information Sep- 4 Yfn Tran. [facility] [address], [place], [address], [place]. tel:[phone] Referring Provider: Marc Isaac, [facility] [address], [place], [address]. tel:[phone] [facility] , [address], [place], [address], [place] tel:[phone] [facility] , No Information Mar- 4 Yfn Tran. [facility] [address], [place], [address], [place]. tel:[phone] [facility] , [address], [place], [address], [place] tel:[phone] [facility] , No Information 4 Yfn Tran. [facility] [address], [place], [address], [place]. tel:[phone] Referring Provider: Marc Isaac, [facility] [address], [place], [address]. tel:[phone] Office/Outpa tient Visit, Est [facility] , [address], [place], [address], [place] tel:[phone] [facility] , Rheumatoid arthritis (chief complaint) Seronegative RAPolyosteoa rthritis, unspecifiedS icca syndrome, unspecifiedE levated liver enzymesDignity Health St[facility] lingHigh risk medication monitoring 4 Yfn Tran. [facility] [address], [place], [address], [place]. tel:[phone] Referring Provider: Marc Isaac, [facility] [address], [place], [address]. tel:[phone] [facility] , [address], [place], [address], [place] tel:[phone] [facility] , No Information 4 Gary Velasquez. [address], [place], [address], [place]. tel:[phone] Referring Provider: Eva Price, [address], [place], [address]. tel:[phone] [facility] , [address], [place], [address], [place] tel:[phone] [facility] , No Information 4 Henry Ordoñez. [facility] [address], [place], [address], [place]. tel:[phone] Referring Provider: Smita Price, [facility] [address], [place], [address]. tel:[phone] [facility] , [address], [place], [address], [place] tel:[phone] [facility] , No Information 4 Tucker Fernando. [facility] [address], [place], [address], [place]. tel:[phone] Referring Provider: Abdullahi Loza, [facility] [address], [place], [address]. tel:[phone] [facility] , [address], [place], [address], [place] tel:[phone] [facility] , No Information 4 Yfn Tran. [facility] [address], [place], [address], [place]. tel:[phone] Referring Provider: Marc Isaac, [facility] [address], [place], [address]. tel:[phone] Office/Outpa tient Visit, Est [facility] , [address], [place], [address], [place] tel:[phone] [facility] , Rheumatoid arthritis (chief complaint) Seronegative RAPolyosteoa rthritis, unspecifiedS icca syndrome, unspecifiedE levated liver enzymesDignity Health St[facility] lingHigh risk medication monitoring 4 Yfn Tran. [facility] [address], [place], [address], [place]. tel:[phone] Referring Provider: Marc Isaac, [facility] [address], [place], [address]. tel:[phone] [facility] , [address], [place], [address], [place] tel:[phone] [facility] , No Information 4 Yfn Tran. [facility] [address], [place], [address], [place]. tel:[phone] Referring Provider: Marc Isaac, [facility] [address], [place], [address]. tel:[phone] [facility] , [address], [place], [address], [place] tel:[phone] [facility] , No Information 4 Yfn Tran. [facility] [address], [place], [address], [place]. tel:[phone] Referring Provider: Marc Isaac, [facility] [address], [place], [address]. tel:[phone] Office/Outpa tient Visit, Est [facility] , [address], [place], [address], [place] tel:[phone] [facility] , Rheumatoid arthritis (chief complaint) Seronegative RAPolyosteoa rthritis, unspecifiedS icca syndrome, unspecifiedE levated liver enzymesBone healthCounse lingHigh risk medication monitoring 4 Yfn Tran. [facility] [address], [place], [address], [place]. tel:[phone] Referring Provider: Marc Isaac, [facility] [address], [place], [address]. tel:[phone] [facility] , [address], [place], [address], [place] tel:[phone] [facility] , No Information 3 Yfn Tran. [facility] [address], [place], [address], [place]. tel:[phone] Referring Provider: Marc Isaac, [facility] [address], [place], [address]. tel:[phone] [facility] , [address], [place], [address], [place] tel:[phone] [facility] , No Information 3 Yfn Tran. [facility] [address], [place], [address], [place]. tel:[phone] Referring Provider: Marc Isaac, [facility] [address], [place], [address]. tel:[phone] [facility] , [address], [place], [address], [place] tel:[phone] [facility] , No Information 3 Skemp Ruben. [facility] , [facility] [address], [place], [address], [place]. tel:[phone] Referring Provider: Ruben Isaac, [facility] [address], [place], [address]. tel:[phone] [facility] , [address], [place], [address], [place] tel:[phone] [facility] , No Information 3 Yfn Tran. [facility] [address], [place], [address], [place]. tel:[phone] Referring Provider: Marc Isaac, [facility] [address], [place], [address]. tel:[phone] Office/Outpa tient Visit, Est [facility] , [address], [place], [address], [place] tel:[phone] [facility] , Rheumatoid arthritis (chief complaint) Seronegative RAPolyosteoa rthritis, unspecifiedS icca syndrome, unspecifiedE levated liver enzymesDignity Health St[facility]ere healthCoroosevelt general hospitale lingHigh risk medication monitoring 3 Yfn Tran. [facility] [address], [place], [address], [place]. tel:[phone] Referring Provider: Marc Isaac, [facility] [address], [place], [address]. tel:[phone] [facility] , [address], [place], [address], [place] tel:[phone] [facility] , No Information 3 Grant Boyd. [address], [address], [place], [address], [place]. tel:[phone] Referring Provider: Deb Burns, [address], [place], [address]. tel:[phone] [facility] , [address], [place], [address], [place] tel:[phone] [facility] , No Information 3 Yfn Tran. [facility] [address], [place], [address], [place]. tel:[phone] Referring Provider: Marc Isaac, [facility] [address], [place], [address]. tel:[phone] [facility] , [address], [place], [address], [place] tel:[phone] [facility] , No Information Dec- 3 Yfn Tran. [facility] [address], [place], [address], [place]. tel:[phone] Referring Provider: Marc Isaac, [facility] [address], [place], [address]. tel:[phone] [facility] , [address], [place], [address], [place] tel:[phone] [facility] , No Information 3 Yfn Tran. [facility] [address], [place], [address], [place]. tel:[phone] Referring Provider: Marc Isaac, [facility] [address], [place], [address]. tel:[phone] Office/Outpa tient Visit, Est [facility] , [address], [place], [address], [place] tel:[phone] [facility] , Rheumatoid arthritis (chief complaint) Seronegative RAPolyosteoa rthritis, unspecifiedS icca syndrome, unspecifiedE levated liver enzymesDignity Health St[facility] lingHigh risk medication monitoring 3 Yfn Tran. [facility] , [facility] [address], [place], [address], [place]. tel:[phone] Referring Provider: Marc Isaac, [facility] [address], [place], [address]. tel:[phone] [facility] , [address], [place], [address], [place] tel:[phone] [facility] , No Information 3 Yfn Tran. [facility] [address], [place], [address], [place]. tel:[phone] Referring Provider: Marc Isaac, [facility] [address], [place], [address]. tel:[phone] [facility] , [address], [place], [address], [place] tel:[phone] [facility] , No Information 3 Yfn Tran. [facility] [address], [place], [address], [place]. tel:[phone] Referring Provider: Marc Isaac, [facility] [address], [place], [address]. tel:[phone] [facility] , [address], [place], [address], [place] tel:[phone] [facility] , No Information 3 Yfn Tran. [facility] [address], [place], [address], [place]. tel:[phone] Referring Provider: Marc Isaac, [facility] [address], [place], [address]. tel:[phone] [facility] , [address], [place], [address], [place] tel:[phone] [facility] , No Information 2 Gary Miranda. [facility] [address], [place], [address], [place]. tel:[phone] Referring Provider: Ruben Isaac, [facility] [address], [place], [address]. tel:[phone] Office/Outpa tient Visit, Est [facility] , [address], [place], [address], [place] tel:[phone] [facility] , Rheumatoid arthritis (chief complaint) Seronegative RAPolyosteoa rthritis, unspecifiedS icca syndrome, unspecifiedE levated liver enzymesDignity Health St[facility] lingHigh risk medication monitoring 2 Yfn Tran. [facility] , [facility] [address], [place], [address], [place]. tel:[phone] Referring Provider: Marc Isaac, [facility] [address], [place], [address]. tel:[phone] [facility] , [address], [place], [address], [place] tel:[phone] [facility] , No Information 2 Tucker Fernando. [facility] [address], [place], [address], [place]. tel:[phone] Referring Provider: Abdullahi Loza, [facility] [address], [place], [address]. tel:[phone] Office/Outpa tient Visit, Est [facility] , [address], [place], [address], [place] tel:[phone] [facility] , Rheumatoid arthritis (chief complaint) Seronegative RAPolyosteoa rthritis, unspecifiedS icca syndrome, unspecifiedE levated liver enzymesDignity Health St[facility] lingHigh risk medication monitoring 2 Yfn Tran. [facility] , [facility] [address], [place], [address], [place]. tel:[phone] Referring Provider: Marc Isaac, [facility] [address], [place], [address]. tel:[phone] [facility] , [address], [place], [address], [place] tel:[phone] [facility] , No Information 2 Gary Miranda. [facility] [address], [place], [address], [place]. tel:[phone] Referring Provider: Ruben Isaac, [facility] [address], [place], [address]. tel:[phone] [facility] , [address], [place], [address], [place] tel:[phone] [facility] , No Information 2 Yfn Tran. [facility] , [facility] [address], [place], [address], [place]. tel:[phone] Referring Provider: Marc Isaac, [facility] [address], [place], [address]. tel:[phone] [facility] , [address], [place], [address], [place] tel:[phone] [facility] , No Information 2 Yfn Tran. [facility] [address], [place], [address], [place]. tel:[phone] Referring Provider: Marc Isaac, [facility] [address], [place], [address]. tel:[phone] [facility] , [address], [place], [address], [place] tel:[phone] [facility] , No Information 2 Yfn Tran. [facility] [address], [place], [address], [place]. tel:[phone] Referring Provider: Marc Isaac, [facility] [address], [place], [address]. tel:[phone] [facility] , [address], [place], [address], [place] tel:[phone] [facility] , No Information 1 Gary Miranda. [facility] [address], [place], [address], [place]. tel:[phone] Referring Provider: Ruben Vega A, [facility] [address], [place], [address]. tel:[phone] Office/Outpa tient Visit, Est [facility] , [address], [place], [address], [place] tel:[phone] [facility] , Rheumatoid arthritis (chief complaint) Seronegative RAPolyosteoa rthritis, unspecifiedS icca syndrome, unspecifiedE levated liver enzymesDign[facility] Health St[facility]ere Memorial HealthcareHigh risk medication monitoring 1 Yfn Tran. [facility] [address], [place], [address], [place]. tel:[phone] Referring Provider: Marc Isaac, [facility] [address], [place], [address]. tel:[phone] [facility] , [address], [place], [address], [place] tel:[phone] [facility] , No Information 1 Yfn Tran. [facility] , [facility] [address], [place], [address], [place]. tel:[phone] Referring Provider: Marc Iasac, [facility] [address], [place], [address]. tel:[phone] [facility] , [address], [place], [address], [place] tel:[phone] [facility] , No Information 1 Yfn Tran. [facility] , [facility] [address], [place], [address], [place]. tel:[phone] Referring Provider: Marc Isaac, [facility] [address], [place], [address]. tel:[phone] [facility] , [address], [place], [address], [place] tel:[phone] [facility] , No Information 1 Yfn Tran. [facility] [address], [place], [address], [place]. tel:[phone] Referring Provider: Marc Isaac, [facility] [address], [place], [address]. tel:[phone] Office/Outpa tient Visit, Est [facility] , [address], [place], [address], [place] tel:[phone] [facility] , Rheumatoid arthritis (chief complaint) Seronegative RAPolyosteoa rthritis, unspecifiedS icca syndrome, unspecifiedE levated liver enzymesDign[facility] Health St[facility] lingHigh risk medication monitoring 1 Yfn Tran. [facility] [address], [place], [address], [place]. tel:[phone] Referring Provider: Marc Isaac, [facility] [address], [place], [address]. tel:[phone] [facility] , [address], [place], [address], [place] tel:[phone] [facility] , No Information 1 Yfn Tran. [facility] [address], [place], [address], [place]. tel:[phone] Referring Provider: Marc Isaac, [facility] [address], [place], [address]. tel:[phone] [facility] , [address], [place], [address], [place] tel:[phone] [facility] , No Information 1 Yfn Tran. [facility] [address], [place], [address], [place]. tel:[phone] Referring Provider: Marc Isaac, [facility] [address], [place], [address]. tel:[phone] [facility] , [address], [place], [address], [place] tel:[phone] [facility] , No Information 1 Yfn Tran. [facility] , [facility] [address], [place], [address], [place]. tel:[phone] Referring Provider: Marc Isaac, [facility] [address], [place], [address]. tel:[phone] [facility] , [address], [place], [address], [place] tel:[phone] [facility] , No Information 1 Yfn Tran. [facility] [address], [place], [address], [place]. tel:[phone] Referring Provider: aMrc Isaac, [facility] [address], [place], [address]. tel:[phone] Office/Outpa tient Visit, Est [facility] , [address], [place], [address], [place] tel:[phone] [facility] , Rheumatoid arthritis (chief complaint) Seronegative RAPolyosteoa rthritis, unspecifiedS icca syndrome, unspecifiedE levated liver enzymesDign[facility] Health St[facility] lingHigh risk medication monitoringFa tigue 1 Yfn Tran. [facility] [address], [place], [address], [place]. tel:[phone] Referring Provider: Marc Isaac, [facility] [address], [place], [address]. tel:[phone] [facility] , [address], [place], [address], [place] tel:[phone] [facility] , No Information 1 Yfn Tran. [facility] [address], [place], [address], [place]. tel:[phone] Referring Provider: Marc Isaac, [facility] [address], [place], [address]. tel:[phone] [facility] , [address], [place], [address], [place] tel:[phone] [facility] , No Information 1 Yfn Tran. [facility] [address], [place], [address], [place]. tel:[phone] Referring Provider: Marc Isaac, [facility] [address], [place], [address]. tel:[phone] Office/Outpa tient Visit, Est [facility] , [address], [place], [address], [place] tel:[phone] [facility] , Rheumatoid arthritis (chief complaint) Seronegative RAPolyosteoa rthritis, unspecifiedS icca syndrome, unspecifiedE levated liver enzymesDignity Health St[facility]ere Memorial HealthcareHigh risk medication monitoring 1 Yfn Tran. [facility] [address], [place], [address], [place]. tel:[phone] Referring Provider: Marc Isaac, [facility] [address], [place], [address]. tel:[phone] [facility] , [address], [place], [address], [place] tel:[phone] [facility] , No Information 1 Yfn Tran. [facility] [address], [place], [address], [place]. tel:[phone] Referring Provider: Marc Isaac, [facility] [address], [place], [address]. tel:[phone] [facility] , [address], [place], [address], [place] tel:[phone] [facility] , No Information 0 Td Gonzalez. [facility] [address], [place], [address], [place]. tel:[phone] Referring Provider: Lisa Price, [facility] [address], [place], [address]. tel:[phone] [facility] , [address], [place], [address], [place] tel:[phone] [facility] , No Information 0 Yfn Tran. [facility] [address], [place], [address], [place]. tel:[phone] Referring Provider: Marc Isaac, [facility] [address], [place], [address]. tel:[phone] Office/Outpa tient Visit, Est [facility] , [address], [place], [address], [place] tel:[phone] Telehealth Rheumatoid arthritis (chief complaint) CounselingSe ronegative RAPolyosteoa rthritis, unspecifiedS icca syndrome, unspecifiedE levated liver enzymesBone [facility] risk medication monitoring 0 Yfn Tran. [facility] [address], [place], [address], [place]. tel:[phone] Referring Provider: Marc Isaac, [facility] [address], [place], [address]. tel:[phone] [facility] , [address], [place], [address], [place] tel:[phone] [facility] , No Information 0 Yfn Tran. [facility] [address], [place], [address], [place]. tel:[phone] Referring Provider: Marc Isaac, [facility] [address], [place], [address]. tel:[phone] Office/Outpa tient Visit, Est [facility] , [address], [place], [address], [place] tel:[phone] [facility] , Rheumatoid arthritis (chief complaint) Seronegative RAPolyosteoa rthritis, unspecifiedS icca syndrome, unspecifiedE levated liver enzymesBone healthHigh risk medication monitoringLo w back painCounseli ng 0 Yfn Tran. [facility] [address], [place], [address], [place]. tel:[phone] Referring Provider: Marc Isaac, [facility] [address], [place], [address]. tel:[phone] [facility] , [address], [place], [address], [place] tel:[phone] [facility] , No Information 0 Yfn Tran. [facility] [address], [place], [address], [place]. tel:[phone] Referring Provider: Marc Isaac, [facility] [address], [place], [address]. tel:[phone] [facility] , [address], [place], [address], [place] tel:[phone] [facility] , No Information 0 Yfn Tran. [facility] [address], [place], [address], [place]. tel:[phone] Referring Provider: Marc Isaac, [facility] [address], [place], [address]. tel:[phone] [facility] , [address], [place], [address], [place] tel:[phone] [facility] , No Information 0 Yfn Tran. [facility] [address], [place], [address], [place]. tel:[phone] Referring Provider: Marc Isaac, [facility] [address], [place], [address]. tel:[phone] Office/Outpa tient Visit, Est [facility] , [address], [place], [address], [place] tel:[phone] [facility] , Rheumatoid arthritis (chief complaint) Seronegative RAPolyosteoa rthritis, unspecifiedS icca syndrome, unspecifiedE levated liver enzymesBone healthHigh risk medication monitoringLo w back pain Nikhil- 0 Yfn Tran. [facility] [address], [place], [address], [place]. tel:[phone] Referring Provider: Marc Isaac, [facility] [address], [place], [address]. tel:[phone] [facility] , [address], [place], [address], [place] tel:[phone] [facility] , No Information 0 Yfn Tran. [facility] [address], [place], [address], [place]. tel:[phone] Referring Provider: Marc Isaac, [facility] [address], [place], [address]. tel:[phone] [facility] , [address], [place], [address], [place] tel:[phone] [facility] , No Information 0 Yfn Tran. [facility] [address], [place], [address], [place]. tel:[phone] Referring Provider: Marc Isaac, [facility] [address], [place], [address]. tel:[phone] Office/Outpa tient Visit, Est [facility] , [address], [place], [address], [place] tel:[phone] [facility] , Rheumatoid arthritis (chief complaint) Seronegative RAPolyosteoa rthritis, unspecifiedS icca syndrome, unspecifiedE levated liver enzymesBone [facility] risk medication monitoring 0 Yfn Tran. [facility] [address], [place], [address], [place]. tel:[phone] Referring Provider: Marc Isaac, [facility] [address], [place], [address]. tel:[phone] [facility] , [address], [place], [address], [place] tel:[phone] [facility] , No Information Yfn Palmerad. [facility] [address], [place], [address], [place]. tel:[phone] Referring Provider: Marc Isaac, [facility] [address], [place], [address]. tel:[phone] Office/Outpa tient Visit, Est [facility] , [address], [place], [address], [place] tel:[phone] [facility] , Rheumatoid arthritis (chief complaint) Seronegative RAPolyosteoa rthritis, unspecifiedS icca syndrome, unspecifiedE levated liver enzymesBone [facility] risk medication monitoring Yfn Palmerad. [facility] [address], [place], [address], [place]. tel:[phone] Referring Provider: Marc Isaac, [facility] [address], [place], [address]. tel:[phone] [facility] , [address], [place], [address], [place] tel:[phone] [facility] , No Information Yfn Marc. [facility] [address], [place], [address], [place]. tel:[phone] Referring Provider: Marc Isaac, [facility] [address], [place], [address]. tel:[phone] [facility] , [address], [place], [address], [place] tel:[phone] [facility] , No Information Yfn Tran. [facility] [address], [place], [address], [place]. tel:[phone] Referring Provider: Marc Isaac, [facility] [address], [place], [address]. tel:[phone] Office/Outpa tient Visit, Est [facility] , [address], [place], [address], [place] tel:[phone] [facility] , Rheumatoid arthritis (chief complaint) Seronegative RAPolyosteoa rthritis, unspecifiedS icca syndrome, unspecifiedE levated liver enzymesBone [facility] risk medication monitoring Yfn Marc. [facility] [address], [place], [address], [place]. tel:[phone] Referring Provider: Marc Isaac, [facility] [address], [place], [address]. tel:[phone] [facility] , [address], [place], [address], [place] tel:[phone] [facility] , No Information Gary Morrisonibald. [facility] [address], [place], [address], [place]. tel:[phone] Referring Provider: Ruben Vega A, [facility] [address], [place], [address]. tel:[phone] [facility] , [address], [place], [address], [place] tel:[phone] [facility] , No Information Yfn Tran. [facility] [address], [place], [address], [place]. tel:[phone] Referring Provider: Marc Isaac, [facility] [address], [place], [address]. tel:[phone] Office/Outpa tient Visit, Est [facility] , [address], [place], [address], [place] tel:[phone] [facility] , Rheumatoid arthritis (chief complaint) Seronegative RAPolyosteoa rthritis, unspecifiedS icca syndrome, unspecifiedE levated liver enzymesDign[facility] St[facility] risk medication monitoringTe ndinitis Yfn Marc. [facility] [address], [place], [address], [place]. tel:[phone] Referring Provider: Marc Isaac, [facility] [address], [place], [address]. tel:[phone] [facility] , [address], [place], [address], [place] tel:[phone] [facility] , No Information 9 Sharlene Russell. [facility] [address], [place], [address], [place]. tel:[phone] Referring Provider: Drew Hdez, [facility] [address], [place], [address]. tel:[phone] Office/Outpa tient Visit, Est [facility] , [address], [place], [address], [place] tel:[phone] [facility] , Rheumatoid arthritis (chief complaint) Seronegative RAPolyosteoa rthritis, unspecifiedS icca syndrome, unspecifiedE levated liver enzymesBone healthHigh risk medication monitoring Yfnlamonte Tran. [facility] [address], [place], [address], [place]. tel:[phone] Referring Provider: Marc Isaac, [facility] [address], [place], [address]. tel:[phone] [facility] , [address], [place], [address], [place] tel:[phone] [facility] , No Information Yfn Tran. [facility] [address], [place], [address], [place]. tel:[phone] Referring Provider: Marc Isaac, [facility] [address], [place], [address]. tel:[phone] Office/Outpa tient Visit, Est [facility] , [address], [place], [address], [place] tel:[phone] [facility] , Rheumatoid arthritis (chief complaint) Seronegative RAPolyosteoa rthritis, unspecifiedS icca syndrome, unspecifiedE levated liver enzymesBone healthHigh risk medication monitoring 8 Yfn Tran. [facility] [address], [place], [address], [place]. tel:[phone] Referring Provider: Marc Isaac, [facility] [address], [place], [address]. tel:[phone] [facility] , [address], [place], [address], [place] tel:[phone] [facility] , Seronegative RA Dec-0 8 Gary Miranda. [facility] [address], [place], [address], [place]. tel:[phone] Referring Provider: Ruben Isaac, [facility] [address], [place], [address]. tel:[phone] Office/Outpa tient Visit, Est [facility] , [address], [place], [address], [place] tel:[phone] [facility] , Rheumatoid arthritis (chief complaint) Seronegative RAPolyosteoa rthritis, unspecifiedS icca syndrome, unspecifiedE levated liver enzymesBone [facility] risk medication monitoring 8 Yfn Tran. [facility] [address], [place], [address], [place]. tel:[phone] Referring Provider: Marc Isaac, [facility] [address], [place], [address]. tel:[phone] [facility] , [address], [place], [address], [place] tel:[phone] [facility] , Seronegative RA Oct-2 8 Yfn Tran. [facility] [address], [place], [address], [place]. tel:[phone] Referring Provider: Marc Isaac, [facility] [address], [place], [address]. tel:[phone] Office/Outpa tient Visit, Est [facility] , [address], [place], [address], [place] tel:[phone] [facility] , Rheumatoid arthritis (chief complaint) Seronegative RAPolyosteoa rthritis, unspecifiedS icca syndrome, unspecifiedE levated liver enzymesDignity Health St[facility] risk medication monitoring 8 Yfn Tran. [facility] [address], [place], [address], [place]. tel:[phone] Referring Provider: Marc Isaac, [facility] [address], [place], [address]. tel:[phone] [facility] , [address], [place], [address], [place] tel:[phone] [facility] , Seronegative RA 8 Yfn Tran. [facility] [address], [place], [address], [place]. tel:[phone] Referring Provider: Marc Isaac, [facility] [address], [place], [address]. tel:[phone] [facility] , [address], [place], [address], [place] tel:[phone] [facility] , Seronegative RA 8 Yfn Tran. [facility] [address], [place], [address], [place]. tel:[phone] Referring Provider: Marc Isaac, [facility] [address], [place], [address]. tel:[phone] [facility] , [address], [place], [address], [place] tel:[phone] [facility] , Seronegative RA May- [facility] Marc. [facility] [address], [place], [address], [place]. tel:[phone] Referring Provider: Marc Isaac, [facility] [address], [place], [address]. tel:[phone] Office/Outpa tient Visit, Est [facility] , [address], [place], [address], [place] tel:[phone] [facility] , Rheumatoid arthritis (chief complaint) Seronegative RAPolyosteoa rthritis, unspecifiedS icca syndrome, unspecifiedE levated liver enzymesBone healthHigh risk medication monitoring [facility] Marc. [facility] [address], [place], [address], [place]. tel:[phone] Referring Provider: Marc Isaac, [facility] [address], [place], [address]. tel:[phone] Office/Outpa tient Visit, Est [facility] , [address], [place], [address], [place] tel:[phone] [facility] , Rheumatoid arthritis (chief complaint) Seronegative RAPolyosteoa rthritis, unspecifiedS icca syndrome, unspecifiedE levated liver enzymesBone healthHigh risk medication monitoring Yfngraciela Tran. [facility] [address], [place], [address], [place]. tel:[phone] Referring Provider: Marc Isaac, [facility] [address], [place], [address]. tel:[phone] [facility] , [address], [place], [address], [place] tel:[phone] [facility] , No Information Yfn Tran. [facility] [address], [place], [address], [place]. tel:[phone] Referring Provider: Marc Isaac, [facility] [address], [place], [address]. tel:[phone] [facility] , [address], [place], [address], [place] tel:[phone] [facility] , Seronegative RA Sharlene Russell. [facility] [address], [place], [address], [place]. tel:[phone] Referring Provider: Drew Hdez, [facility] [address], [place], [address]. tel:[phone] Office/Outpa tient Visit, Est [facility] , [address], [place], [address], [place] tel:[phone] [facility] , Rheumatoid arthritis (chief complaint) Seronegative RAPolyosteoa rthritis, unspecifiedS icca syndrome, unspecifiedB one healthHigh risk medication monitoringEl evated liver enzymes Yfn Tran. [facility] [address], [place], [address], [place]. tel:[phone] Referring Provider: Marc Isaac, [facility] [address], [place], [address]. tel:[phone] [facility] , [address], [place], [address], [place] tel:[phone] [facility] , No Information 0 7 Yfn Marc. [facility] [address], [place], [address], [place]. tel:[phone] Referring Provider: Marc Isaac, [facility] [address], [place], [address]. tel:[phone] [facility] , [address], [place], [address], [place] tel:[phone] [facility] , Seronegative RA Aug- 3 7 [facility] Marc. [facility] [address], [place], [address], [place]. tel:[phone] Referring Provider: Marc Isaac, [facility] [address], [place], [address]. tel:[phone] [facility] , [address], [place], [address], [place] tel:[phone] [facility] , No Information 0 7 Yfn Tran. [facility] [address], [place], [address], [place]. tel:[phone] Referring Provider: Marc Isaac, [facility] [address], [place], [address]. tel:[phone] Office/Outpa tient Visit, Est [facility] , [address], [place], [address], [place] tel:[phone] [facility] , Rheumatoid arthritis (chief complaint) Seronegative RAPolyosteoa rthritis, unspecifiedS icca syndrome, unspecifiedB [facility] monitoring Yfngraciela Tran. [facility] [address], [place], [address], [place]. tel:[phone] Referring Provider: Marc Isaac, [facility] [address], [place], [address]. tel:[phone] [facility] , [address], [place], [address], [place] tel:[phone] [facility] , Seronegative RA Yfngraciela Tran. [facility] [address], [place], [address], [place]. tel:[phone] Referring Provider: Marc Isaac, [facility] [address], [place], [address]. tel:[phone] [facility] , [address], [place], [address], [place] tel:[phone] [facility] , Seronegative RA Yfngraciela Tran. [facility] [address], [place], [address], [place]. tel:[phone] Referring Provider: Marc Isaac, [facility] [address], [place], [address]. tel:[phone] [facility] , [address], [place], [address], [place] tel:[phone] [facility] , Seronegative RA 6 [facility]. [facility] [address], [place], [address], [place]. tel:[phone] Referring Provider: Marc Isaac, [facility] [address], [place], [address]. tel:[phone] Office/Outpa tient Visit, Est [facility] , [address], [place], [address], [place] tel:[phone] [facility] , Rheumatoid arthritis (chief complaint) Seronegative RAPolyosteoa rthritis, unspecifiedS icca syndrome, unspecifiedH igh risk medication monitoringBo [facility] ed liver enzymes Apr- 6 [facility]. [facility] [address], [place], [address], [place]. tel:[phone] Referring Provider: Marc Isaac, [facility] [address], [place], [address]. 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 [facility] [address], [place], [address], [place]. tel:[phone] Referring Provider: Marc Isaac, [facility] [address], [place], [address]. tel:[phone] [facility] , [address], [place], [address], [place] tel:[phone] [facility] , Seronegative RA Mar- 6 [facility] Marc. [facility] [address], [place], [address], [place]. tel:[phone] Referring Provider: Marc Isaac, [facility] [address], [place], [address]. tel:[phone] [facility] , [address], [place], [address], [place] tel:[phone] [facility] , No Information 6 [facility] Marc. [facility] , [facility] [address], [place], [address], [place]. tel:[phone] Referring Provider: Marc Isaac, [facility] [address], [place], [address]. tel:[phone] Office/Outpa tient Visit, Est [facility] , [address], [place], [address], [place] tel:[phone] [facility] , Rheumatoid arthritis (chief complaint) Seronegative RAPolyosteoa rthritis, unspecifiedS icca syndrome, unspecifiedH igh risk medication [facility] 6 [facility] Marc. [facility] , [facility] [address], [place], [address], [place]. tel:[phone] Referring Provider: Marc Isaac, [facility] [address], [place], [address]. tel:[phone] Office/Outpa tient Visit, Est [facility] , [address], [place], [address], [place] tel:[phone] [facility] , Rheumatoid arthritis (chief complaint) Seronegative RAPolyosteoa rthritis, unspecifiedS icca syndrome, unspecifiedH igh risk medication monitoringB[facility] 6 [facility] , [facility] [address], [place], [address], [place]. tel:[phone] Referring Provider: Marc Iasac, [facility] [address], [place], [address]. tel:[phone] Office/Outpa tient Visit, Est [facility] , [address], [place], [address], [place] tel:[phone] [facility] , Rheumatoid arthritis (chief complaint) Seronegative RAPolyosteoa rthritis, unspecifiedS icca syndrome, unspecifiedH igh risk medication monitoringB[facility] 6 [facility]. [facility] , [facility] [address], [place], [address], [place]. tel:[phone] Referring Provider: Marc Isaac, [facility] [address], [place], [address]. tel:[phone] Office/Outpa tient Visit, Est [facility] , [address], [place], [address], [place] tel:[phone] [facility] , Rheumatoid arthritis (chief complaint) Sicca syndromeRheu matoid ArthritisThe rapeutic Drug MonitoringBo [facility] , [facility] [address], [place], [address], [place]. tel:[phone] Referring Provider: Marc Isaac, [facility] [address], [place], [address]. tel:[phone] Office/Outpa tient Visit, Est [facility] , [address], [place], [address], [place] tel:[phone] [facility] , Rheumatoid arthritis (chief complaint) Rheumatoid ArthritisThe rapeutic Drug MonitoringWake [facility] , [facility] [address], [place], [address], [place]. tel:[phone] Referring Provider: Marc Isaac, [facility] [address], [place], [address]. tel:[phone] Office/Outpa tient Visit, Est [facility] , [address], [place], [address], [place] tel:[phone] [facility] , Rheumatoid Arthritis (chief complaint) Rheumatoid ArthritisThe rapeutic Drug MonitoringOt her specified counseling [facility]. [facility] , [facility] [address], [place], [address], [place]. tel:[phone] Referring Provider: Marc Isaac, [facility] [address], [place], [address]. tel:[phone] Office/Outpa tient Visit, Est [facility] , [address], [place], [address], [place] tel:[phone] [facility] , Rheumatoid Arthritis (chief complaint) Rheumatoid ArthritisOth er specified counselingTh erapeutic Drug Monitoring 4 [facility]. [facility] , [facility] [address], [place], [address], [place]. tel:[phone] Referring Provider: Marc Isaac, [facility] [address], [place], [address]. tel:[phone] Office/Outpa tient Visit, Est [facility] , [address], [place], [address], [place] tel:[phone] [facility] , Rheumatoid Arthritis (chief complaint) Rheumatoid ArthritisOth er specified counselingTh erapeutic Drug MonitoringDi [facility] 4 [facility]. [facility] , [facility] [address], [place], [address], [place]. tel:[phone] Referring Provider: Marc Isaac, [facility] [address], [place], [address]. tel:[phone] Office/Outpa tient Visit, Est [facility] , [address], [place], [address], [place] tel:[phone] [facility] , Rheumatoid Arthritis (chief complaint) Rheumatoid ArthritisOth er specified counselingTh erapeutic Drug MonitoringMy algia and myositis, unspecified 4 [facility] , [facility] [address], [place], [address], [place]. tel:[phone] Referring Provider: Marc Isaac, [facility] [address], [place], [address]. tel:[phone] Office/Outpa tient Visit, Est [facility] , [address], [place], [address], [place] tel:[phone] [facility] , Rheumatoid Arthritis (chief complaint) Rheumatoid ArthritisOth er specified counselingTh erapeutic Drug Monitoring 3 [facility]fngraciela Tr[facility]. [facility] , [facility] [address], [place], [address], [place]. tel:[phone] Referring Provider: Marc Isaac, [facility] [address], [place], [address]. tel:[phone] [facility] , [address], [place], [address], [place] tel:[phone] [facility] , No Information [facility]. [facility] [address], [place], [address], [place]. tel:[phone] Referring Provider: Marc Isaac, [facility] [address], [place], [address]. tel:[phone] Office/Outpa tient Visit, Est [facility] , [address], [place], [address], [place] tel:[phone] [facility] , Rheumatoid Arthritis (chief complaint) Rheumatoid ArthritisThe rapeutic Drug MonitoringOt her specified counseling 3 [facility] [address], [place], [address], [place]. tel:[phone] Referring Provider: Marc Isaac, [facility] [address], [place], [address]. tel:[phone] [facility] , [address], [place], [address], [place] tel:[phone] [facility] , No Information 3 [facility] [address], [place], [address], [place]. tel:[phone] Referring Provider: Marc Isaac, [facility] [address], [place], [address]. tel:[phone] [facility] , [address], [place], [address], [place] tel:[phone] [facility] , No Information 3 [facility]fngraciela [facility]. [facility] [address], [place], [address], [place]. tel:[phone] Referring Provider: Marc Isaac, [facility] [address], [place], [address]. tel:[phone] Office/Outpa tient Visit, Est [facility] , [address], [place], [address], [place] tel:[phone] [facility] , Rheumatoid Arthritis (chief complaint) Rheumatoid ArthritisOth [facility] erapeutic Drug Monitoring 3 [facility] , [facility] [address], [place], [address], [place]. tel:[phone] Referring Provider: Marc Isaac, [facility] [address], [place], [address]. tel:[phone] Office/Outpa tient Visit, Est [facility] , [address], [place], [address], [place] tel:[phone] [facility] , Rheumatoid Arthritis (chief complaint) Rheumatoid ArthritisThe rapeutic Drug MonitoringMy algia and myositis, unspecifiedO ther specified counseling 3 [facility] [address], [place], [address], [place]. tel:[phone] Referring Provider: Marc Isaac, [facility] [address], [place], [address]. tel:[phone] Office/Outpa tient Visit, Est [facility] , [address], [place], [address], [place] tel:[phone] [facility] , Rheumatoid Arthritis (chief complaint) Rheumatoid ArthritisOth er specified counselingTh erapeutic Drug MonitoringMy algia and myositis, unspecified 3 [facility] , [facility] [address], [place], [address], [place]. tel:[phone] Referring Provider: Marc Isaac, [facility] [address], [place], [address]. tel:[phone] Office/Outpa tient Visit, Est [facility] , [address], [place], [address], [place] tel:[phone] [facility] , Rheumatoid Arthritis (chief complaint) Rheumatoid ArthritisThe rapeutic Drug MonitoringMy algia and myositis, unspecifiedO ther specified counseling 2 [facility] [address], [place], [address], [place]. tel:[phone] Referring Provider: Marc Isaac, [facility] [address], [place], [address]. tel:[phone] Office/Outpa tient Visit, Est [facility] , [address], [place], [address], [place] tel:[phone] [facility] , Rheumatoid Arthritis (chief complaint) Rheumatoid ArthritisMya lgia and myositis, unspecifiedT herapeutic Drug MonitoringOt her specified counseling 2 [facility] [address], [place], [address], [place]. tel:[phone] Referring Provider: Hien Nieves, [facility] [address] [facility], [place], [address]. tel:[phone] Family History Family Member Type Diagnosis Age At Onset sister Problem (finding) Systemic lupus erythema tosis uncle Problem (finding) rheumatoid arthritis Immunizations Vaccine Date Status Comments COVID-19 Pfizer administered Note: 2020 ; Source: Other Provider Payers Payer name Insurance type Covered republican ID Authorvidal titom(s) Medicare MB [id number] [facility] [id number] Social History Type Description Quantity Date Captured Comments Alcohol Use Details Unknown Caffeine Use Details Unknown Tobacco Use Status No Information Smoking Status No Information Sex Female Vital Signs Date / Time: Height Weight BMI Pulse Rate Blood Pressure Temperature Respiratory Rate Body Surface Area Head Circumference Head Circ. Percentile Wt./Kane. Percentile BMI percentile Pulse Ox Inhaled Ox 1:13 PM 88.000 kg (194.00 lbs) 1:17 PM 88.182 kg (194.00 lbs) 68 /min 121/72 mm[Hg] 97.60 F Chief Complaint And Reason For Visit No [...]
--- OUTSIDE RECORDS SUMMARY | 2024-04-04 08:28 | XMS_ITS | Clinical Summary ---
Author Organization [facility] Address [place], [place] [address] Care Team Providers Care Event Staff Name Role Phone NadegetHien Primary Care Provider Allergies Active Allergy Reactions [...] times daily. 270 Tablet 11/02/19 22 Active predniSONE (DELTASONE) 2.5 mg tablet Take 5 mg by mouth. 10 mg 06/01/20 22 Active pantoprazole (PROTONIX) 40 mg delayed-release tabletIndications: Chronic GERD Take 1 Tablet (40 mg) by mouth once daily before a meal. 90 Tablet 3 02/03/20 23 Active HYDROcodone-acetam inophen [...] mouth two times daily. 08/31/19 24 Active potassium chloride (K-TAB) 10 mEq [...] colonoscopy appointment. 8000 mL 03/25/20 24 Active zolpidem (AMBIEN) 5 mg tabletIndications: Transient insomnia TAKE 1 TABLET BY MOUTH AT BEDTIME 60 Tablet 2 02/26/20 24 Active golimumab (SIMPONI ARIA) 12.5 mg/mL infusion Inject 2 mg/kg intravenous one time. Active simvastatin (ZOCOR) 80 mg tabletIndications: Mixed hyperlipidemia TAKE 1/2 (ONE-HALF) TABLET BY MOUTH AT BEDTIME 45 Tablet 3 03/29/20 24 Active abatacept (Orencia) subcutaneous syringeIndications :Rheumatoid arthritis of multiple sites with negative rheumatoid factor (HC) Inject 6 mL (750 mg) subcutaneous every 4 weeks. 0 02/11/20 22 024 Discontinued(*M ed complete/Regime n complete/Level of care change) simvastatin (ZOCOR) 80 mg tabletIndications: Mixed hyperlipidemia TAKE 1/2 (ONE-HALF) TABLET BY MOUTH AT BEDTIME 15 Tablet 02/25/20 24 024 Discontinued Active Problems Problem Noted Date Diagnosed Date Midline cystocele 08/31/2023 Rectocele 08/31/2023 Enterocele 08/31/2023 Vaginal vault prolapse 08/31/2023 KIRK (stress urinary incontinence, female) 2023 Pure hypercholesterolemia 10/20/2021 Primary hypertension 10/20/2021 Hormone replacement therapy (postmenopausal) GERD without esophagitis 10/20/2021 Lumbar stenosis with neurogenic claudication Tachycardia 10/20/2021 Spondylolisthesis of lumbar region 10/20/2021 Diverticulosis of colon 11/19/2018 Rheumatoid arthritis of [facility] sites with negative rheumatoid factor 05/01/2017 Personal history of colonic polyps 06/01/2010 Overview (02/10/2022): Colonoscopy 05/2010 hemorrhoids repeat in 5 years [...] Encounters Date Type Department Care Team Description 04/03/2024 Lab Requisition [facility] [phone] Elmer Haynes MD 04/03/2024 Orders Only [facility] [address] [place] [address] Elmer Haynes MD <No scans attached> 03/26/2024 Refill [facility] [address] [place] [address] Hien Nieves, Refill Request (Simvastatin) 03/19/2024 3:15 PM CDT Ancillary Procedure [facility] [address] [facility] [place] [address] 03/19/2024 2:30 PM CDT Ancillary Procedure [facility] [address] [facility] [place] [address] 03/19/2024 Ancillary Orders [facility] [address] [place] [address] Hien Nieves, 03/19/2024 Travel 03/08/2024 1:50 PM CDT Office Visit [address] [address] Hien Nieves DO Preoperative Exam (colonoscopy); Medicare ANNUAL (subsequent) Visit 03/08/2024 Travel 03/06/2024 9:40 AM CDT Ancillary Procedure [address] [address] 03/06/2024 Travel 02/24/[address] [address] Hien Nieves, Refill Request (Zolpidem) 02/22/[address] [address] Hien Nieves, Refill Request (Simvastatin) 02/21/2024 Orders Only [address] [address] Hien Nieves, <No scans attached> 02/16/2024 Orders Only [address] [address] Hien Nieves, 1 scan: (1-Ord) STEFANI, MR CERVICAL SPINE WO CONTRAST, 02/15/2024 02/08/2024 Refill [facility] [address] [place] [address] Hien Nieves, Refill Request (Fluoxetine) 02/07/2024 9:50 AM CDT Office Visit [facility] [address] [facility] [address] Hien Nieves DO Musculoskeletal Problem (right side-pain from shoulders to ankles then tingly in mornings); Edema (swelling on right side hip area) 02/07/2024 Telephone [facility] [address] [place] [address] Elmer Haynes MD Need Meds 02/07/2024 Travel 02/01/2024 Refill [facility] [address] [place] [place] [address] Hien Nieves DO Refill Request (Potassium Chloride) from Last 3 Months Immunizations Name Administration Dates Next Due COVID-19 vaccine (Octane5 International-Bio NTech 30mcg/0.3mL) 12YO+ BIVALENT PF, MDV 05/20/2022 COVID-19 vaccine (Octane5 [employer] NTech 30mcg/0.3mL) PF, MDV 05/21/2021,10/10/2020,09/19/2020 Covid-19 Vaccine (Unspecified) 10/01/2020 DT (Age < 7 years) 05/19/1998 HepA-HepB (Twinrix) 12/13/2018,03/08/2017,2016 Hepatitis B (Adult) 07/03/1998 Influenza A (H1N1), Inactivated 07/21/2009 Influenza, High-dose Inactivated 021,03/23/2020,02/23/2017,02/01 Influenza, High-dose Quadriv alent Inactivated 03/18/2023,03/23/2020 Influenza, IIV3 (Age >=3 years) 02/08/20 18,04/13/2015,03/12/2013,090 07/2011,03/15/2011,04/20/2010,04/02/20 09,05/05/2008,04/25/2007,05/16/2006 Influenza, IIV4 03/12/2013 Influenza, Inactivated [...] Stroke Mother Susan Cancer-breast Other 2 cousins Cancer-ovarian No Family History Relation Name Status Comments Daughter Cindy Alive Adopted Father Lucero Alive Mother Susan Alive Other Son Lei Alive Social History Tobacco Use Types Packs/Day Years Used Date Smoking Tobacco: Never Smokeless Tobacco: Never Tobacco Cessation:Counseling Given: Yes Alcohol Use Standard Drinks/Week Comments No 0 (1 standard drink = 0.6 oz pur e alcohol) PHQ-2 Answer Date Recorded PHQ-2 TOTAL SCORE 0 03/08/2024 Social Connections Answer Date Recorded Frequency of Communication with Friends and Fami ly 0 03/08/2024 Financial Resource Strain Answer Date R ecorded Difficulty of Paying Living Expenses 3 03/08/2024 Difficulty of Paying Living Expenses Not on file 03/08/2024 Food Insecurity Answer Date Recorded Worried About Running Out of Food in the Last Ye ar 1 03/08/2024 Transportation Needs Answer Date Record ed Lack of Transportation (Medical) 1 03/08/2024 Housing Stability Answer Date Recorded Unable to Pay for Housing in the Last Year 1 03/08/2024 Sex and Gender Information Value Date Recorded Sex Assigned at Not on file Gender Identity Not on file Sexual Orientation Not on file Obstetrics History Para Term AB IAB SAB Ectopic Multiple Livin g Live Births 1 1 Date Outcome GA Total Labor Labor/2nd/3rd Weight Sex Type Anes PTL Lachelle A1 A5 Name Clin Para Comments G1: 1976, vaginal delivery, son Last Filed Vital Signs Vital Sign Reading Time Taken Comments Blood Pressure 124/72 03/08/2024 1:54 PM CDT Pulse 75 03/08/2024 1:54 PM CDT Temperature 36.6 ??C (97.8 ??F) 10/06/2023 8:59 AM CD T Respiratory Rate 16 08/31/2023 2:28 PM SAP SPECIALIST Oxygen Saturation 97% 03/08/2024 1:54 PM CDT Inhaled Oxygen Concentration - - Weight 87.1 kg (192 lb) 03/08/2024 1:54 PM CDT Height 164.5 cm (5' 4.75) 03/08/2024 2:08 PM CD T Body Mass Index 32.2 03/08/2024 1:54 PM CDT Plan of Treatment Scheduled Procedures Name Priority Associated Diagnoses Date/Ti me SURGICAL PROCEDURE (TYPE PRO CEDURE DESCRIPTION BELOW) History of colonic polyps Health Maintenance Due Date Last Done Comments COVID-19 vaccine series ( season) 2024 11/29/2023, 04/17/2023, 05/20/2022, Additional history exists Influenza for age 65+ 03/03/2024 03/18/2023 , 05/20/2022, 03/12/2021, Additional history exists BMI (ht and wt on same day) for age 18+ 02/06/2025 02/07/2024, 08/16/2023, 02/01/2023, Additional history exists Depression screening for age 12+ 03/08/2025 03/08/2024, 02/08/2024, 02/07/2024, Additional history exists Medicare Wellness for age 65+ 03/09/2025, 02/01/2023, 01/28/2022, Additional history exists Mammogram for age 45-75 03/19/2025 03/19/20 24, 03/06/2024, 02/01/2023, Additional history exists Lipids for age 45-75 [...] history exists Medical Devices Implanted Type Area Millinery Copyist Device Identifier Shelf Expiration Date Model / Serial / Lot [id number] one 1-4mm 60cc Medtronic Fine Canclls Freeze Dried Implanted:Qty: 1 on 10/20/2021 by Gaye Caal MD at [facility] Explanted:at [facility] (Quantity not on file) N/A: Spine Medtronic Spine/Ortho 10/14/2025 [id number] / [id number] / [id number] one Matrix 6cc [place] Dbf Putty Dbm Implanted:Qty: 1 on 10/20/2021 by Gaye Caal MD at [facility] Explanted:at [facility] (Quantity not on file) N/A: Spine Medtronic Spine/Ortho 09/07/2023 [id number] / [id number] / Spacer Lmbr [id number] 0 Deg Avs Unilif - [id number] Implanted:Qty: 1 on 10/20/2021 by Gaye Caal MD at [facility] N/A: Spine [place] Spine [id number] / / Spacer Lmbr [id number] 0 Deg Avs Unlif - [id number] Implanted:Qty: 1 on 10/20/2021 by Gaye Caal MD at [facility] N/A: Spine Matthew Spine [id number] / / Anupam Lmbr 80mmx6 Xia3 Cvd Titnm - [id number] Implanted:Qty: 1 on 10/20/2021 by Gyae Caal MD at [facility] N/A: Spine [place] Spine [id number] / / Anupam Lmbr 70mmx6 Xia3 Max Cvd Titnm - [id number] Implanted:Qty: 1 on 10/20/2021 by Gaye Caal MD at [facility] N/A: Spine Matthew Spine [id number] / / Screw Lmbr Post 6.5x45mm Lexi 3va - [id number] Implanted:Qty: 4 on 10/20/2021 by Gaye Caal MD at [facility] N/A: Spine [place] Spine [id number] / / Screw Lmbr Post 6.5x50mm Xia3va - [id number] Implanted:Qty: 2 on 10/20/2021 by Gaye Caal MD at [facility] N/A: Spine Matthew Spine [id number] / / Set Screw Lmbr Xia3 - [id number] Implanted:Qty: 6 on 10/20/2021 by Gaye Caal MD at [facility] N/A: Spine [place] Spine [id number] / / Mesh Pelvic 24x8cm Restorelle L - [id number] Implanted:Qty: 1 on 08/31/2023 by Anival Bhandari MD at [facility] N/A: Pelvis Coloplast Matcha 11/08/2025 [id number] / / [id number] Sling Pelvic Advantage Fit Blue - [id number] Implanted:Qty: 1 on 08/31/2023 by Anival Bhandari MD at [facility] N/A: Pelvis [facility] 05/02/2026 [id number] / / [id number] Procedures Procedure Name Priority Date/Time Associated Diagnosis Comments US BREAST UNILATERAL RIGHT LIMITED CRUZ 03/19/2024 2:48 PM CDT Abnormal mammogram XR MAMMO KATHY UNI ADDL VIEWS RIGHT CRUZ 03/19/2024 2:36 PM CDT Abnormal mammogram XR MAMMO KATHY BILAT SCREEN Routine 03/06/2024 9:53 AM CDT Visit for screening mammogram MR SPINE CERVICAL WO CRUZ 02/15/2024 12:00 AM CDT Cervical radiculopathy CBC WITH AUTO DIFFERENTIAL Routine 02/07/2024 12:01 [...] CDT Need for hepatitis C screening test COLONOSCOPY 02/10/2022 9:18 AM CDT XR DXA BONE DENSITY 2 SITES AXIAL Routine 01/25/2021 9:30 AM CDT Postmenopausal from Last 3 Months or Most Recently Relevant to Health Maintenance Results * US BREAST UNILATERAL RIGHT LIMITED (03/19/2024 2:48 PM CDT) Anatomical Region Laterality Modality BREASTS, Breast Right Right Ultrasound Narrative 03/20/2024 2:03 PM CDT As a result of the Cures Act, medical imaging exams and procedure reports are released immediately into your electronic medical record. ??You may view this report before your referring provider. ??If you have questions, please contact your health care provider. RIGHT BREAST ULTRASOUND 03/19/2024 PLEASE SEE [id number] FOR RIGHT DIGITAL ADDITIONAL VIEWS MAMMOGRAM OF SAME DAY. Hien Nieves DO US * XR MAMMO KATHY UNI ADDL VIEWS RIGHT (03/19/2024 2:36 PM CDT) Anatomical Region Laterality Modality BREASTS, Breast Right Mammograph y 03/19/2024 2:53 PM CDT Impressions 03/20/2024 2:03 PM CDT Indeterminate, ovoid, hypoechoic, nodular structure posterior depth RIGHT breast 8 o'clock 5 cm from the nipple measuring 1 cm. RECOMMENDATIONS: Ultrasound-guided core needle biopsy. BI-RADS Category 4: Suspicious Results and recommendations discussed with the patient. Dictated by: Jacob Pagan MD @03/19/2024 2:53:00 PM /sp PATIENTS: You will also receive a letter with your examination results in an easy to read format. ??If you have questions about your results, please contact your referring provider. Narrative 03/20/2024 2:03 PM CDT As a result of the Cures Act, medical imaging exams and procedure reports are released immediately into your electronic medical record. ??You may view this report before your referring provider. ??If you have questions, please contact your health care provider. RIGHT BREAST MAMMOGRAM DIGITAL ADDITIONAL VIEWS WITH TOMOSYNTHESIS 03/19/2024 ?? RIGHT BREAST ULTRASOUND 03/19/2024 CLINICAL HISTORY: RIGHT breast mass/asymmetry. COMPARISON: 03/06/2024. TECHNIQUE: Digital RIGHT mammogram in two projections. Tomosynthesis was used in this interpretation. Real-time ultrasound imaging of RIGHT breast with imaging documentation. BREAST COMPOSITION: The breasts are heterogeneously dense, which may obscure small masses. ?? FINDINGS: 3D spot compression CC/MLO RIGHT breast mammogram images submitted. Persistent nodular density without architectural distortion. No suspicious calcifications. Targeted RIGHT breast ultrasound 8 o'clock 5 cm from the nipple performed. In this location there is a hypoechoic ovoid structure measuring 9 x 9 x 10 mm. Hien Lightt DO MAMMO * XR MAMMO KATHY BILAT SCREEN (03/06/2024 9:53 AM CDT) Anatomical Region Laterality Modality BREASTS, Breast Left, Breast Right Bilateral Mammography 03/06/2024 3:36 PM CDT Impressions 03/06/2024 4:00 PM CDT RIGHT breast asymmetry/mass. RECOMMENDATIONS: Additional mammographic views of the RIGHT breast including 3D spot-compression CC/MLO. RIGHT breast ultrasound may also be required. A member of the health care team will contact the patient to schedule the required additional imaging appointment(s). BI-RADS Category 0: Incomplete: Need Additional Imaging Evaluation and/or Prior Mammograms for Comparison Dictated by: Jacob Pagan MD @03/06/2024 3:36:34 PM /sp Narrative 03/06/2024 4:00 PM CDT As a result of the Cures Act, medical imaging exams and procedure reports are released immediately into your electronic medical record. ??You may view this report before your referring provider. ??If you have questions, please contact your health care provider. BILATERAL BREAST MAMMOGRAM DIGITAL SCREENING WITH COMPUTER-AIDED DETECTION AND TOMOSYNTHESIS 03/06/2024 ?? CLINICAL HISTORY: Routine screening exam. COMPARISON: 02/01/2023, 12/20/2021, 12/10/2020, 12/10/2019. TECHNIQUE: Digital mammogram in CC and MLO projections including computer-aided detection (CAD). Tomosynthesis was used in this interpretation. BREAST COMPOSITION: The breasts are heterogeneously dense, which may obscure small masses. ?? FINDINGS: RIGHT Breast: Focal nodular density within the lower outer quadrant 5 cm from the nipple. LEFT Breast: No suspicious findings. Hien Nieves DO MAMMO * MR SPINE CERVICAL WO (02/15/2024 12:00 AM CDT) Anatomical Region Laterality Modality Spine, CERVICAL SPINE Magnetic R esonance Hien Pereza Nadeget DO MR * (ABNORMAL) CBC WITH AUTO DIFFERENTIAL (02/07/2024 12:01 PM CDT) [facility] Signature WHITE BLOOD COUNT 7.9 4.5 - 11.0 thou/cu mm 02/07/2024 12:[address] [facility] RED BLOOD COUNT 3.86(L) 4.00 - 5.20 mil/cu mm 02/07/2024 12:[address] [facility] HEMOGLOBIN 12.7 12.0 - 16.0 g/dL 02/07/2024 12:[address] [facility] HEMATOCRIT 37.9 33.0 - 51.0 % 02/07/2024 12:[address] [facility] MCV 98 80 - 100 fL 02/07/2024 12:[address] [facility] MCH 32.9 26.0 - 34.0 pg 02/07/2024 12:[address] [facility] MCHC 33.5 32.0 - 36.0 g/dL 02/07/2024 12:[address] [facility] RDW 13.2 11.5 - 15.5 % 02/07/2024 12:[address] [facility] PLATELET COUNT 237 140 - 440 thou/cu mm 02/07/2024 12:[address] [facility] MPV 11.3(H) 6.5 - 11.0 fL 02/07/2024 12:[address] [facility] % NEUT 66.2 % 02/07/2024 12:[address] [facility] % LYMPH 24.1 % 02/07/2024 12:[address] [facility] % MONO 7.4 % 02/07/2024 12:[address] [facility] % EOS 1.9 % 02/07/2024 12:[address] [facility] % BASO 0.4 % 02/07/2024 12:[address] [facility] ABSOLUTE NEUTROPHILS 5.2 1.7 - 7.0 thou/cu mm 02/07/2024 12:[address] [facility] ABSOLUTE LYMPHOCYTES 1.9 0.9 - 2.9 thou/cu mm 02/07/2024 12:[address] [facility] ABSOLUTE MONOCYTES 0.6 <0.9 thou/cu mm 02/07/2024 12:[address] [facility] ABSOLUTE EOSINOPHILS 0.2 <0.5 thou/cu mm 02/07/2024 12:[address] [facility] ABSOLUTE BASOPHILS 0.0 <0.3 thou/cu mm 02/07/2024 12:[address] [facility] Blood BLOOD SPECIMEN / Unknown Venipuncture / Unknown 02/07/2024 12:01 PM CDT 02/07/2024 12:01 PM CDT Hien Lightt DO HEMATOLOGY [facility] [address] [place] [address], * (ABNORMAL) LIPID PANEL W REFLEX MEASURED LDL (02/07/2024 12:01 PM CDT) CHOLESTEROL,TOTAL 225(H) 100 - 199 mg/dL 02/08/2024 12:27 AM CDT [facility] Comment: Cholesterol, Total Reference Ranges Desirable <200 mg/dL Borderline 200-239 mg/dL High >=240 mg/dL TRIGLYCERIDES 218(H) <150 mg/dL 02/08/2024 12:27 AM CDT [facility] HDL CHOLESTEROL 83 >40 mg/dL 12:27 AM CDT [facility] NON-HDL CHOLESTEROL 142 <145 mg/dl 02/08/2024 12:27 AM T [facility] CHOL/HDL RATIO 2.71 <4.50 02/08/2024 12:27 AM T [facility] LDL CHOLESTEROL 98 <=130 mg/dL 02/08/2024 12:27 AM T [facility] VLDL CHOLESTEROL 44(H) <=30 mg/dL 02/08/2024 12:27 AM CDT [facility] PROVIDER ORDERED STATUS RANDOM 02/08/2024 12:27 AM CDT [facility] Blood BLOOD SPECIMEN / Unknown Venipuncture / Unknown 02/07/2024 12:01 PM CDT 02/07/2024 12:01 PM CDT Hien Leeann Nieves DO CHEMISTRY Performing Organization Address City/[facility]/ZIP Co de Phone Number [facility] [address] [place] [address], * (ABNORMAL) C-REACTIVE PROTEIN (02/07/2024 12:01 PM CDT) C-REACTIVE PROTEIN 0.8(H) <0.5 mg/dL 02/08/2024 12:27 AM CDT [facility] Blood BLOOD SPECIMEN / Unknown Venipuncture / Unknown 02/07/2024 12:01 PM CDT 02/07/2024 12:01 PM CDT Hien Nieves DO CHEMISTRY Performing Organization Address City/[facility]/ZIP Co de Phone Number [facility] [address] [place] [address], * (ABNORMAL) COMP METABOLIC PANEL (02/07/2024 12:01 PM CDT) SODIUM 136 136 - 145 mmol/L 02/08/2024 12:27 AM CDT [facility] POTASSIUM 4.9 3.5 - 5.1 mmol/L 02/08/2024 12:27 AM CDT [facility] CHLORIDE 100 98 - 107 mmol/L 02/08/2024 12:27 AM CDT [facility] CO2,TOTAL 26 22 - 29 mmol/L 02/08/2024 12:27 AM CDT [facility] ANION GAP 10 5 - 18 02/08/2024 12:27 AM CDT [facility] GLUCOSE 112(H) 70 - 99 mg/dL 02/08/2024 12:[address] [facility] CALCIUM 9.6 8.8 - 10.2 mg/dL 02/08/2024 12:[address] [facility] BUN 21 8 - 23 mg/dL 02/08/2024 12:[address] [facility] CREATININE 1.14(H) 0.50 - 0.90 mg/dL 02/08/2024 12:[address] [facility] BUN/CREAT RATIO 18 10 - 20 12:[address] [facility] eGFR 51(L) >90 mL/min/1.7 3m2 02/08/2024 12:[address] [facility] Comment:As of 2021, eG FR is calculated by the CKD-EPI creatinine equation without race adjustment. ??eGFR can be influenced by muscle mass, exercise, and diet. ??The reported eGFR is an estimation only and is only applicable if the renal function is stable. ALBUMIN 4.3 4.0 - 4.9 g/dL 02/08/2024 12:[address] [facility] PROTEIN,TOTAL 7.0 6.0 - 8.0 g/dL 02/08/2024 12:[address] [facility] BILIRUBIN,TOTAL 0.4 0.0 - 1.2 mg/dL 02/08/2024 12:[address] [facility] ALK PHOSPHATASE 81 35 - 104 IU/L 02/08/2024 12:[address] [facility] ALT (SGPT) 15 10 - 35 IU/L 02/08/2024 12:[address] [facility] AST (SGOT) 26 10 - 35 IU/L 02/08/2024 12:[address] [facility] Blood BLOOD SPECIMEN / Unknown Venipuncture / Unknown 02/07/2024 12:01 PM CDT 02/07/2024 12:01 PM CDT Hien Nieves DO CHEMISTRY [facility] [address] [place] [id number], [place] * SEDIMENTATION RATE (02/07/2024 11:53 AM CDT) SEDIMENTATION RATE 12 <30 mm/hr 2023 10:33 PM CDT [facility] Blood BLOOD SPECIMEN / Unknown Venipuncture / Unknown 02/07/2024 11:53 AM CDT 02/07/2024 11:59 AM CDT Hien Nieves DO HEMATOLOGY Performing Organization Address City/[facility]/ZIP Co de Phone Number [facility] [address] [place] [address], [place] * LC HCV ANTIBODY RFX TO QUANT PCR (02/01/2023 10:31 AM CDT) HCV Ab Non Reactive Non Reactive 02/03/2023 9:06 PM CDT [facility] ([facility]) Blood BLOOD SPECIMEN / Unknown Venipuncture / Unknown 02/01/2023 10:31 AM CDT 02/01/2023 10:31 AM CDT Narrative [facility] ([facility]) - 02/03/2023 9:06 PM CDT Performed at: ??[address] ??[id number] Sleeve Machine Tender: Reinier Tadeo MD, Phone: ??[phone] Hien Nieves DO [facility] ([facility]) [address] [place] [id number], * COLONOSCOPY (02/10/2022 9:18 AM CDT) 02/10/2022 9:18 AM CDT Narrative Transcriptions Elmer Haynes MD - 02/10/2022 10:26 AM CDT Patient Name: Sheri Brownlee Procedure Date: 02/10/2022 Gender: Female Date of : 1950 Admit Type: Outpatient Procedure: Colonoscopy Proceduralist: Elmer Haynes MD , Aurora Spencer RN (Nurse) Indications/Pre-Op Diagnosis: High risk colon [...] there are any questions, please contact the system manager. Moderate Sedation: Moderate (conscious) sedation was administered [...] 9:18 AM Procedure Code(s): --- Professional --- 91869, Colonoscopy, flexible; diagnostic, including collection of specimen(s) bybrushing or washing, when performed (separateprocedure) Diagnosis Code(s): --- Professional --- Z86.010, Personal history of colonicpolyps K57.30, Diverticulosis of large intestine without perforation or abscess withoutbleeding Q43.8, Other specified congenitalmalformations of intestine CPT copyright 2020 [employer]. All rights reserved. The codes documented in this report are preliminary and upon registration representative reviewmay be revised to meet current compliance requirements. Scope In: 10:00:39 AM Scope Withdrawal Time 0 hours 8 minutes 19 seconds Scope Out: 10:16:21 AM Elmer Haynes MD PROCEDURE ORD * XR DXA BONE DENSITY 2 SITES AXIAL [86649.1] (01/25/2021 9:30 AM CDT) Anatomical Region Laterality [...] DXA Bone Mineral Density (BMD) EXAM LOCATION: [facility] [address] [facility] [address] PATIENT NAME: Sheri Brownlee DATE OF : 1950 EXAM DATE: 01/25/2021 REQUESTING PROVIDER: Hien Nieves DO GENDER AT : female HEIGHT: 5' 4 [...] two scanners are made by the same pediatric sports medicine specialist. PROCEDURE: Dual-energy x-ray absorptiometry performed with routine [...] T-score at or below -2.5 SD Hien Bradshaw Deterleon DO DEXA from Last 3 Months or [...] Preferences, Provider to review later Care Teams Event Staff Relationship Specialty Start Date End Date Hien Nieves DO [address] [place] [address] PCP - General Family Practice 10/11/10
--- OUTSIDE RECORDS SUMMARY | 2024-04-04 08:29 | XMS_ITS | Data Portability ---
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 If you agree with the plan as outlined above, please sign, date and fax back to [phone]. Thank you. Primary MD signature: Date: csather Not available 12/03/2020 11:00:24 12/28/2020 [id number] Plan: Medicare requires a metal trim erector or MIXER BLENDER to authorize our plan of care. If you agree with the plan as outlined above, please sign, date and fax back to [phone]. Thank you. Primary MD signature: Date: csather Not available 12/28/2020 14:39:24 Reason for Referral Physical Therapist Referral for Myofascial pain Referring Physician: Molly Belcher, Pain Management, Encounter Date: 11/12/2020 Results Created Date Observation Date Name Description Value Unit Range Abnormal Flag Note LastModifiedBy Organization Detail LastModifiedTime 11/13/19 21 11/12/2020 XR, tempo waqar dibul ar joint , bilat eral No observ ation record ed. BARCODE Not Available 2020 17:33:03 Result Notes None recorded. 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 13:51:00 Otalgia of right ear Active [address] [facility] 13:50:38 Problem Notes None recorded. Procedures Surgical History Date Name Laterality Status Provider Name and Address Organization Details Recorded Time 71929: Therapeutic Exercise completed [facility] 12/31/2020 09:24:31 36685: Manual Therapy completed [facility] 12/31/2020 18:21:30 31804 PT Eval - Low Complexity completed [facility] 12/03/2020 11:38:10 15462: Therapeutic Exercise completed [facility] 12/03/2020 11:58:02 60449: Manual Therapy completed [facility] 12/03/2020 11:57:57 Knee arthroscopy/sara freedom completed [facility] 11/12/2020 09:42:23 Neck Surgery completed [facility] 11/12/2020 09:42:38 Celoron Teeth Extraction completed [facility] 11/12/2020 09:42:45 [...] Name and Address Organization Details Recorded Time 73523 Medicinal product containin g penicilli n and acting as antibacte rial agent (product) medicatio n anaphylax is severe Not available 11/12/2020 83525 05 SNOMED ESTEFANÍA [facility] - [facility] 09:38:18 Medications [...] 1 96.4 [degF] 162.56 cm 34.3 kg/m2 20444.4 7 g 98 /min 112 mm[Hg] 80 mm[Hg] Vega Everett [place] [facility] 09:38:02 Date Recorded Body height Body temperature Systolic blood pressure Diastolic blood pressure Provider Name and Address Organization Details Last Updated DateTime 12/28/2020 162.56 cm 97.3 [degF] 121 mm[Hg] 78 mm[Hg] [facility]ega [facility] 14:04:53 Social History Question Answer Notes LastModified by Organizat ion Details LastModified Time Tobacco Smoking Status Never Smoker Vega seym[facility] 11/12/2020 09:38:42 [...] Anxious, Or Unable To Sleep At Night)? [id number] Information not available 12/28/2020 Do You Use Any Illicit Or Recreational Drugs? No Information not available 11/12/2020 Sex: Unknown Functional Status None recorded. Mental Status None recorded. Family History Relationship Description Onset Age of this Age Resolved Age Notes LastModified by Organization Details LastModified Time Father Alzheimer's disease Not available 11/12 09:39:48 Father Heart disease Not available 11/12 09:40:33 Sister Heart disease Not available 11/12 09:40:15 Medical History Condition Response Allergies/Hayfever Y Head Trauma/Injury Y Obstructive Sleep Apnea Y Autoimmune disease Y Arthritis Y Rheumatoid Arthritis Y Fibromyalgia Y Gynecological HistoryNo gynecological history recorded. Obstetrics History GPAL:G 0 P 0 0 0 0 Immunizations Vaccine Type Date Status Provider Name and Address Organization Details Recorded Time Influenza, split virus, trivalent, preservative 03/03/[address] [facility] 11/12/2020 09:38:47 pneumococcal, unspecified formulation 07/03/2016 completed ESTEFANÍA Grayson [facility] 11/12/2020 09:38:47 SARS-COV-2 (COVID-19) vaccine, UNSPECIFIED 10/01/2020 completed ESTEFANÍA Grayson [facility] 11/12/2020 09:39:19 Past Encounters Encounter ID Performer Location Encounter Start Date Encounter Closed Date Diagnosis/Indication Diagnosis SNOMED-CT Code Diagnosis ICD10 Code [id number] Mollyjadiel Kaplan e [address] [place] [id number] 11/12/2020 09:23:55 11/12/2020 10:51:59 Otalgia of right ear 7697605049 467682 H92.01 Arthralgia of temporomandibular joint 15433875 M26.621 Degenerati ve arthritis of temporomandibular joint 082850158 M13.88 Myofascial pain 05520323 9 M79.11 [id number] Juan Kaplan e [address] [place] [id number] 12/03/2020 10:57:20 12/03/2020 11:55:23 Arthralgia of temporomandibular joint 52459271 M26.629 Degenerati ve arthritis of temporomandibular joint 808117318 M13.88 Myofascial pain 46244779 9 M79.10 [id number] Molly Kaplan e [address] [place] [id number] 12/28/2020 13:47:29 12/28/2020 15:05:28 Otalgia of right ear 6655941388 525876 H92.01 Degenerati ve arthritis of temporomandibular joint 592900059 M13.88 Myofascial pain 84650881 9 M79.11 Arthralgia of temporomandibular joint 53707034 M26.621 [id number] Juan Kaplan e [address] [place] [address] 12/28/2020 13:48:25 12/28/2020 15:05:44 Arthralgia of temporomandibular joint 42154965 M26.629 Degenerati ve arthritis of temporomandibular joint 799335210 M13.88 Myofascial pain 02706145 9 M79.10 Health Concerns Section Related Observation LastModified by Organization Detai ls LastModified Time None Recorded Concern Status LastModified by Organization Details LastModified Time None Recorded Advance Directives Directive None Recorded Payers Encounter Date Sequence Insurance Name Policy Number Policy Disla Covered Member ID Disla Member ID Guarantor Name 11/12/2020 1 [place] [employer] [facility] Sheri Cisneroshotta [id number] Sheri Pichotta 11/12/2020 2 [facility] [id number] Sheri Cisnerosholiza [id number] Sheri Pichotta 12/03/2020 1 [place] [employer] [facility] Sheri Price Pichotta [id number] Sheri Pichotta 12/03/2020 2 [facility] [id number] Sheri Cisneroshotta [id number] Sheri Pichotta 12/28/2020 1 [place] [employer] [facility] Sheri Dee Pichotta [id number] Sheri Pichotta 12/28/2020 2 [facility] [id number] Sheri Cisneroshotta [id number] Sheri Pichotta 12/28/2020 1 [place] [employer] [facility] Sheri Price Pichotta [id number] Sheri Pichotta 12/28/2020 2 [facility] [id number] Sheri Cisneroshotta [id number] Sheri Pichotta Notes Date Note Type Note [...] grinding. Sheri reports that she has worn night assistant appliances for many years. 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 ESTEFANÍA [facility] - [facility] 11/13/2020 13:56:50 [...] grinding. Sheri reports that she has worn night assistant appliances for many years. She is currently [...] fluid feeling better now ESTEFANÍA [facility] - [facility] 12/03/2020 12:00:28 [...] half of his colon. ESTEFANÍA [facility] - [facility] 12/28/2020 15:22:56 [...] grinding. Sheri reports that she has worn night assistant appliances for many years. She is currently [...] sliding versus circular STM ESTEFANÍA [facility] - [facility] 12/31/2020 18:23:22 OBGyn Episode No OBEpisode recorded.
--- NOTE | 2024-04-04 09:15 | CRLHL7_ITS ---
For Patients: As a result of the Century Cures Act, medical imaging exams and procedure reports are released immediately into your electronic medical record. You may view this report before your referring provider. If you have questions, please contact your health care provider. ULTRASOUND-GUIDED BREAST BIOPSY AND POST-BIOPSY DIGITAL MAMMOGRAM FOR BIOPSY MARKER PLACEMENT CLINICAL HISTORY: Indeterminate hypoechoic nodule. COMPARISON STUDIES: 03/19/2024, 03/06/2024. TECHNIQUE: Real-time ultrasound with image documentation was used for targeting the breast lesion. Core biopsy specimens were obtained using an automated gun with a 18-gauge biopsy needle. Post-biopsy CC and ML digital mammograms were obtained to document position of the biopsy marker. CONSENT and TIME OUT: The procedure, risks, and alternatives were explained to the patient and a consent was signed. Randolph Protocol was followed including pre-procedure verification that relevant information/documentation was available, reviewed and properly matched to the patient; consent accurate and complete; and equipment and supplies available. Time Out was conducted just prior to starting procedure to verify the four required elements: patient identity, correct side/site marked (if applicable), procedure, relevant images/results properly labeled and displayed (if applicable). PROCEDURE: The patient was positioned supine on the ultrasound table. The breast was prepped with ChloraPrep. 8 cc of 1 percent lidocaine used for local anesthesia. Core samples were obtained. A sterile metal biopsy clip was placed percutaneously to mckenzie the lesion position within the breast. The specimens were placed in 10% formalin and sent to the pathology department. Pressure was held on the biopsy site until all bleeding subsided. The skin incision was closed with Steri-Strips. An ice pack was positioned over the biopsy site. Post-biopsy instructions were reviewed with the patient, and a written copy was given to her. LATERALITY: RIGHT breast. LESION: Hypoechoic solid nodule posterior depth measuring 9 x 9 x 10 mm at 8 o`clock, 5 cm from the nipple. SUSPICION FOR MALIGNANCY: Low. NUMBER OF SAMPLES: 5. BIOPSY CLIP SHAPE: HydroMARK. PROXIMITY OF CLIP TO TARGET: Within the lesion. IMPRESSION: Ultrasound-guided breast biopsy. When the pathology report is available, an addendum to this report will be made. ACR not applicable Dictated by Jacob Pagan MD @ 04/04/2024 12:49:23 PM /sp SP/Dictated by: Jacob Pagan MD @ 04/04/2024 12:49:00 PM (Electronically Signed)
--- NOTE | 2024-04-04 10:00 | CRLHL7_ITS ---
For Patients: As a result of the Century Cures Act, medical imaging exams and procedure reports are released immediately into your electronic medical record. You may view this report before your referring provider. If you have questions, please contact your health care provider. PLEASE SEE RIGHT ULTRASOUND-GUIDED BIOPSY OF SAME DAY. CRL:sp SP/Dictated by: Jacob Pagan MD @ 04/04/2024 12:49:00 PM (Electronically Signed)
== END 2024-04-04 08:24 | disposition home or self-care (01) ==
LOC: US 08:25
PROVIDERS: PCP Family Medicine; Visit Provider Family Medicine
DX: N63.10 Unspecified lump in the right breast, unspecified quadrant (principal); R92.8 Other abnormal and inconclusive findings on diagnostic imaging of breast
CPT/HCPCS: 19083; 77065; 88305; A4648; A4649